=== PATIENT | male | born 1940 | race Caucasian/White ===

== ENCOUNTER → 2024-08-30 | Outpatient (CLI) | payer MEDICARE, OTHER, SELFPAY ==
[2024-08-30 16:47] LABS: Albumin, Serum 4.5 gm/dL (3.4-4.8); Anion Gap 9 (7-16); BUN/Creatinine Ratio 26 Ratio (12-20); Blood Urea Nitrogen 41 mg/dL (9-23); Carbon Dioxide 26.9 mMol/L (20.0-31.0); Chloride 96 mMol/L (98-107); Creatinine (Component) 1.6 mg/dL (0.6-1.3); Glucose 210 mg/dL (74-106); Osmolality,Calculated 280 (275-295); Phosphorous 3.6 mg/dL (2.4-5.1); Potassium 4.4 mMol/L (3.4-5.1); Sodium 132 mMol/L (136-145); eGFR 42 See Note
== END | disposition home or self-care (01) ==
PROVIDERS: PCP Family Medicine; Referring Provider Internal Medicine Cardiovascular Disease; Visit Provider Internal Medicine Cardiovascular Disease
DX: Z13.1 Encounter for screening for diabetes mellitus (principal)
CPT/HCPCS: 36415; 80069

== ENCOUNTER → 2024-09-06 | Outpatient (CLI) | payer MEDICARE, OTHER, SELFPAY ==
[2024-09-06 17:05] LABS: Albumin, Serum 4.5 gm/dL (3.4-4.8); Anion Gap 10 (7-16); BUN/Creatinine Ratio 27 Ratio (12-20); Blood Urea Nitrogen 40 mg/dL (9-23); Calcium 9.2 mg/dL (8.3-10.6); Calcium (Corrected) 9.2 mg/dL (8.5-10.1); Carbon Dioxide 25.1 mMol/L (20.0-31.0); Chloride 100 mMol/L (98-107); Creatinine (Component) 1.5 mg/dL (0.6-1.3); Glucose 229 mg/dL (74-106); Osmolality,Calculated 286 (275-295); Potassium 4.4 mMol/L (3.4-5.1); Sodium 135 mMol/L (136-145); eGFR 45 See Note
== END | disposition home or self-care (01) ==
PROVIDERS: PCP Family Medicine; Referring Provider Family Medicine; Visit Provider Family Medicine
DX: Z13.1 Encounter for screening for diabetes mellitus (principal)
CPT/HCPCS: 36415; 80069

== ENCOUNTER 2024-12-21 12:13 | Emergency (ER) | payer MEDICARE, OTHER, SELFPAY ==
--- NOTE | 2024-12-21 12:39 | PD.EDADULT ---
ED General RME/HPI General Chief complaint: Ankle/Foot Injury Stated complaint: R FOOT PAIN Time Seen by Provider: 12/21/24 12:31 Arrival date/time: 12/21/24 12:13 RME / HPI RME / HPI narrative: 84-year-old male patient came in for evaluation regarding left first metatarsal phalangeal pain. Onset of symptoms since earlier today as patient is complaining of pain to the left metatarsophalangeal area, with swelling and mild redness. Patient denies any trauma or fall denies any fever denies any other complaints no medication was taken prior to arrival. Related Data Home Medications ?Medication ?Instructions ?Recorded ?Confirmed finasteride 5 mg tablet (Proscar) 5 mg PO QDAY #0 tabs 05/13/15 06/24/22 simvastatin 40 mg tablet (Zocor) 40 mg PO HS #0 tabs 05/13/15 06/24/22 tiotropium bromide 2.5 2 puff inhalation QDAY #0 puffs 07/26/16 06/24/22 mcg/actuation mist for inhalation (Spiriva Respimat) budesonide 1 mg/2 mL suspension 2 ml inhalation BID PRN sob 09/30/18 06/24/22 for nebulization (Pulmicort) apixaban 5 mg tablet (Eliquis) 5 mg PO BID 12/02/21 06/24/22 diltiazem HCl 180 mg 180 mg PO QDAY 12/02/21 06/24/22 capsule,extended release 24 hr metformin 1,000 mg tablet 1,000 mg PO BID 12/02/21 06/24/22 spironolactone 50 mg tablet 100 mg PO QDAY 12/02/21 06/24/22 albuterol sulfate 90 mcg/actuation 1 - 2 puff inhalation Q4H PRN sob 06/24/22 06/24/22 aerosol inhaler (ProAir HFA) bumetanide 2 mg tablet 2 mg PO BID 06/24/22 06/24/22 linaclotide 145 mcg capsule 145 mcg PO QAM 06/24/22 06/24/22 (Linzess) potassium chloride 20 mEq 20 meq PO QDAY 06/24/22 06/24/22 tablet,extended release Previous Rx's ?Medication ?Instructions ?Recorded aspirin 81 mg capsule 81 mg PO QDAY #30 caps 06/26/22 allopurinol 100 mg tablet 100 mg PO QDAY #14 tabs 12/21/24 indomethacin 75 mg 75 mg PO BID #20 caps 12/21/24 capsule,extended release Allergies Allergy/AdvReac Type Severity Reaction Status Date / Time No Known Allergies Allergy Verified 12/21/24 13:12 Review of Systems Review of Systems Narrative Review of Systems: Review of system reviewed and within normal limits except mentioned in HPI ED Exam Narrative Physical exam: VITAL SIGNS: Reviewed. GENERAL APPEARANCE: Alert and interactive, follows commands, no acute distress, HEAD AND FACE: Non-traumatic. ENT: PERRL, pink conjunctivitis, eyelid no trauma, Mucous membrane moist. NECK: Supple, nontender, no nuchal rigidity. CHEST: No tenderness, no crepitus, no paradoxical movement, no retractions. LUNGS: Clear, well ventilated, symmetric, no rales, no wheezing, no ronchi, no stridor, good breath sounds bilaterally. HEART: Regular rate, regular rhythm, no murmur, no gallops. ABDOMEN: Soft, positive bowel sounds, nondistended, no guarding, nontender, no rebound, no masses, RECTAL: Deferred. GENITAL: Deferred. NEUROLOGICAL: Gross motor function intact sensory function intact, Appropriate for age. MUSCULOSKELETAL: low back nontender, full range of motion. EXTREMITIES: Left metatarsophalangeal tenderness, with limitation range of motion. Mild swelling, mild redness SKIN: Color pink, dry, no rash, no lacerations, no abrasions, no contusions. LYMPHATICS: Deferred. Course Quality Measures none Orders Category Date Time Status XR foot comp RT min 3V Stat Exams 12/21/24 13:18 Completed CBC [CBC] Stat Lab 12/21/24 12:45 Completed CMP [Comprehensive Metabolic Panel] Stat Lab 12/21/24 12:45 Completed Uric Acid Stat Lab 12/21/24 12:45 Completed Colchicine Med 12/21/24 13:22 Discontinued 1.2 mg PO X1 ONE Dexamethasone Inj [Decadron Inj] Med 12/21/24 13:22 Discontinued 10 mg PO X1 ONE Ketorolac Inj [Toradol Inj] Med 12/21/24 12:37 Discontinued 15 mg IM X1 ONE MDM Patient data External records reviewed:: None Clinical information provided by:: patient Social determinants that could affect healthcare access:: none Patient has the following chronic illnesses:: C3-4 just shows mild left hydro 11 mm proximal left ureteral calculus copy of this with the family history of chronic A-fib, COPD and congestive heart failure CVA How is presenting disease/condition affected by chronic disease/condition?: uneffected by Evaluation data The following diagnostics were reviewed and interpreted by me:: lab results and radiology exam(s) Lab and/or radiology exams considered but not ordered:: None Interpretation Summary: See results MDM Medications Medications considered but not ordered:: None Medication administrations:: Medication Administration History Discontinued Medications Colchicine (Colchicine 0.6 Mg Tablet) 1.2 mg PO X1 ONE Stop: 12/21/24 13:23 Dexamethasone Sodium Phosphate (Dexamethasone Sod Phos Inj 10 Mg/Ml Vial) 10 mg PO X1 ONE Stop: 12/21/24 13:23 Ketorolac Tromethamine (Ketorolac Inj 60 Mg/2 Ml Vial) 15 mg IM X1 ONE Stop: 12/21/24 12:38 Colchicine, Decadron and Toradol IM Consultations Consultation(s) initiated? (list below): No Consultation #1 (Physician, Specialty, Details): None Diagnosis Differential Diagnosis ED Complaint MDM: Podagra, foot pain, hyperuricemia Most likely diagnosis given after review of the tests above:: Podagra, hyperuricemia Admission Indicated Admission indicated?: not indicated Explain why admission is indicated or not indicated:: Stable Admission Request Was there a request for admission?: No Disposition Plan Disposition Plan: Discharge Discharge Attestation Discharge Attestation: The patient was given an opportunity to ask questions and understood the discharge instructions. Discharge instructions specifically effects, indications for sooner follow up or return to the emergency department, and the expected course of current diagnosis. Patient condition: Stable Medical Decision Making MDM Narrative MDM Narrative: 84-year-old male patient came in for evaluation regarding left first metatarsal phalangeal pain. Onset of symptoms since earlier today as patient is complaining of pain to the left metatarsophalangeal area, with swelling and mild redness. Patient denies any trauma or fall denies any fever denies any other complaints no medication was taken prior to arrival. Patient's workup today is significant for a uric acid of so 10.1 which is elevated potassium 3.0. Otherwise unremarkable. Patient's x-ray of the foot came back with osteopenia otherwise unremarkable. Patient received Differential Diagnosis Differential Diagnosis: Podagra, foot pain, hyperuricemia Lab Data 12/21/24 12:45 12/21/24 12:45 Labs: Lab Results 12/21/24 Range/Units 12:45 WBC 13.4 H (3.8-10.6) Thou/mm3 RBC 4.03 L (4.50-5.90) Miln/mm3 Hgb 12.3 L (13.5-16.0) g/dL Hct 36.7 L (41.0-53.0) % MCV 91 (80-100) fL MCH 30.5 (25.0-35.0) pg MCHC 33.5 (31.0-37.0) g/dl RDW Std Deviation 43.7 (35.1-43.9) fL Plt Count 295 (140-440) Thou/mm3 Neut % (Auto) 76 (37-80) % Lymph % (Auto) 12 (10-50) % Gilmer % (Auto) 10 (0-12) % Eos % (Auto) 1 (0-10) % Baso % (Auto) 1 (0-2.5) % Neut # (Auto) 10.2 H (1.8-7.7) Thou/mm3 Lymph # (Auto) 1.6 (1.0-4.8) Thou/mm3 Gilmer # (Auto) 1.4 H (0.0-0.8) Thou/mm3 Eos # (Auto) 0.1 (0.0-0.5) Thou/mm3 Baso # (Auto) 0.1 (0.0-0.2) Thou/mm3 Immature Gran # (Auto) 0.06 H (0.00-0.00) Thou/mm3 Absolute Nucleated RBC 0.00 (0.00-0.00) Thou/mm3 Immature Gran % 0 (0-0) % Nucleated RBC % 0 (0) /100 WBC Sodium 138 (136-145) mMol/L Potassium 3.3 L (3.4-5.1) mMol/L Chloride 102 (98-107) mMol/L Carbon Dioxide 26.9 (20.0-31.0) mMol/L Anion Gap 9 (7-16) BUN 21 (9-23) mg/dL Creatinine 1.3 (0.6-1.3) mg/dL Estim Creat Clear Calc 37.7 L (>60) mL/min eGFR 54 L (60 - ) See Note BUN/Creatinine Ratio 16 (12-20) Ratio Glucose 171 H (74-106) mg/dL Calculated Osmolality 282 (275-295) Uric Acid 10.1 H (3.7-9.2) mg/dL Calcium 9.0 (8.3-10.6) mg/dL Corrected Calcium 9.0 (8.5-10.1) mg/dL Total Bilirubin 0.6 (0.3-1.2) mg/dL AST 20 (0-34) U/L ALT 17 (10-49) U/L Alkaline Phosphatase 57 (46-116) U/L Total Protein 6.5 (5.7-8.2) gm/dL Albumin 4.1 (3.4-4.8) gm/dL Globulin 2.4 (2.3-3.5) gm/dL Albumin/Globulin Ratio 1.7 (1.2-2.2) Discharge Plan Plan Patient Disposition: HOME (Self Care) Disposition Comment: Stable Prescriptions/Referrals Prescriptions/Med Rec: New allopurinol 100 mg tablet 100 mg PO QDAY Qty: 14 0RF indomethacin 75 mg capsule, extended release 75 mg PO BID Qty: 20 0RF No Action simvastatin [Zocor] 40 MG tablet 40 mg PO HS Qty: 0 finasteride [Proscar] 5 MG tablet 5 mg PO QDAY Qty: 0 Spiriva Respimat 2.5 mcg/actuation Mist 2 puff INHALATION QDAY Qty: 0 budesonide [Pulmicort] 1 mg/2 mL Suspension For Nebulization 2 ml INHALATION BID PRN (Reason: sob) diltiazem HCl 180 mg capsule,extended release 24hr 180 mg PO QDAY metformin 1,000 mg tablet 1,000 mg PO BID spironolactone 50 mg tablet 100 mg PO QDAY Patient Comments: take 2 tablets by mouth once a day Eliquis 5 mg tablet 5 mg PO BID Linzess 145 mcg Capsule 145 mcg PO QAM potassium chloride 20 mEq Tablet Extended Release 20 meq PO QDAY bumetanide 2 MG tablet 2 mg PO BID albuterol sulfate [ProAir HFA] 90 mcg/actuation HFA aerosol inhaler 1 - 2 puff INHALATION Q4H PRN (Reason: sob) aspirin 81 mg capsule 81 mg PO QDAY Qty: 30 0RF Referrals: No Primary/Family,Physician [Primary Care Provider] - In 1 week Problem List Clinical Impression: Podagra, Hyperuricemia Patient/Caregiver Discharge Instructions Discharge Activity: activity as tolerated Education Materials: What Is Gout? Additional Instructions: Thank you for the opportunity for serving you today. You are stable for discharged . You are advised to: Follow-up with your PCP in 1 to 2 days Return to ED for worsening of symptoms Increase oral fluids Take medication as prescribed Print Language: French Stand Alone Forms: Elz[employer]eta Award Info., Patient Portal Info Letter PA/SOFTWARE ENGINEERING SUPERVISOR Supervising Physician PA/SOFTWARE ENGINEERING SUPERVISOR Supervising Physician: MD tyrell
[2024-12-21 12:55] LABS: Basophils # (Auto) 0.1 Thou/mm3 (0.0-0.2); Basophils % (Auto) 1 % (0-2.5); Eosinophils # (Auto) 0.1 Thou/mm3 (0.0-0.5); Eosinophils % (Auto) 1 % (0-10); Hematocrit 36.7 % (41.0-53.0); Hemoglobin 12.3 g/dL (13.5-16.0); Immature Granulocytes % (Auto) 0 % (0-0); Immature Granulocytes Auto 0.06 Thou/mm3 (0.00-0.00); Lymphocytes # (Auto) 1.6 Thou/mm3 (1.0-4.8); Lymphocytes % (Auto) 12 % (10-50); Mean Corpuscular HGB Conc 33.5 g/dl (31.0-37.0); Mean Corpuscular Hemoglobin 30.5 pg (25.0-35.0); Mean Corpuscular Volume 91 fL (80-100); Monocytes # (Auto) 1.4 Thou/mm3 (0.0-0.8); Monocytes % (Auto) 10 % (0-12); Neutrophils # (Auto) 10.2 Thou/mm3 (1.8-7.7); Neutrophils % (Auto) 76 % (37-80); Nucleated Red Blood Cell % 0 /100 WBC (0); Platelet Count 295 Thou/mm3 (140-440); RDW Standard Deviation 43.7 fL (35.1-43.9); Red Blood Count 4.03 Miln/mm3 (4.50-5.90); White Blood Count 13.4 Thou/mm3 (3.8-10.6)
[2024-12-21 13:09] VITALS: PULSE 87; RESP 18; O2SAT 98; BMI 32.9
[2024-12-21 13:15] LABS: Alanine Aminotransferase 17 U/L (10-49); Albumin, Serum 4.1 gm/dL (3.4-4.8); Albumin/Globulin Ratio 1.7 (1.2-2.2); Alkaline Phosphatase 57 U/L (46-116); Anion Gap 9 (7-16); Aspartate Amino Transferase 20 U/L (0-34); BUN/Creatinine Ratio 16 Ratio (12-20); Bilirubin,Total 0.6 mg/dL (0.3-1.2); Blood Urea Nitrogen 21 mg/dL (9-23); Carbon Dioxide 26.9 mMol/L (20.0-31.0); Chloride 102 mMol/L (98-107); Creatinine (Component) 1.3 mg/dL (0.6-1.3); Estimated Creatinine Clearance 37.7 mL/min (>60); Globulin 2.4 gm/dL (2.3-3.5); Glucose 171 mg/dL (74-106); Osmolality,Calculated 282 (275-295); Potassium 3.3 mMol/L (3.4-5.1); Sodium 138 mMol/L (136-145); Total Protein 6.5 gm/dL (5.7-8.2); Uric Acid 10.1 mg/dL (3.7-9.2); eGFR 54 See Note
--- NOTE | 2024-12-21 13:18 | XR_ITS ---
Examination: Foot, right, 3 views Technique: AP, oblique, lateral views foot, 3 views Date and time of exam: 12/21/2024, 1:19 PM INDICATION: Foot pain. Study limited by patient positioning/cooperation. Diffuse osteopenia. Degenerative changes in the interphalangeal joints. No acute fracture seen. No radiopaque foreign bodies. IMPRESSION: Limited study due to patient positioning/cooperate and and osteopenia. No acute fracture seen. Diffuse diffuse osteopenia with degenerative changes. If clinically indicated CT exam may provide additional diagnostic information.
[2024-12-21] MEDS: KETOROLAC INJ 60 MG/2 ML VIAL 15 MG IM (14:36)
[2024-12-21] MEDS: DEXAMETHASONE SOD PHOS INJ 10 MG/ML VIAL PO (14:37)
[2024-12-21 14:48] VITALS: BP 146/70; PULSE 79; RESP 18; TEMP 36.9; O2SAT 95
== END 2024-12-21 17:02 | disposition home or self-care (01) ==
PROVIDERS: Nurse Practitioner Family; Emergency Provider Emergency Medicine
DX: M10.9 Gout, unspecified (principal)
CPT/HCPCS: 36415; 73630; 80053; 84550; 85025; 96372; 99283; J1100; J1885

== ENCOUNTER 2025-01-20 10:23 | Inpatient (IN) | payer MEDICARE, OTHER, SELFPAY ==
[2025-01-20] VITALS (31 sets, daily range): BP systolic 96–136; BP diastolic 46–86; PULSE 54–100; RESP 14–90; TEMP 36.6–37; O2SAT 94–99; BMI 30.2; BMI 38.2
--- NOTE | 2025-01-20 10:32 | EKG_ITS ---
[facility] Test Date: 2025-01-20 Pat Name: DOROTEO CAI Department: Room: - Gender: Male Film Booker: : 1940 Requested By: Dominic Brown Order Number: [id number] Reading MD: Dominic Brown Measurements Intervals Horner Rate: 59 P: UT: QRS: -21 QRSD: 154 T: -5 QT: 457 QTc: 453 Interpretive Statements ATRIAL FIBRILLATION WITH SLOW VENTRICULAR RESPONSE INTRAVENTRICULAR CONDUCTION DELAY [130+ ms QRS DURATION] Compared to ECG 06/24/2022 13:30:50 Intraventricular conduction delay now present T-wave abnormality no longer present /store/S0/[id number]/ecg/[id number].pdf
--- NOTE | 2025-01-20 10:52 | XR_ITS ---
Examination: CT cervical spine without contrast 2-D sagittal reconstructions 2-D coronal reconstructions 3-D reconstructions. Exam date and time:January 20, 2025 1117 hrs. Indications: Patient fell today with injury to the neck, neck pain CTDI:vol (mGy) 9.9 DLP: (mGycm) 220 Technique: Multiple 2 mm axial sections of the cervical spine have been obtained. The coronal and sagittal reconstructions have been obtained. 3-D reconstructions have been obtained. Low dose protocols were performed. One or more of the following dose reduction techniques were used; automated exposure control, adjustment of the mA and/or KV according to patient size, use of iterative reconstruction technique. Findings: Axial sections demonstrate intact base of the skull. C1 exhibit satisfactory relationship to the odontoid. No acute cervical vertebral body fracture seen. Alignment posterior spinous processes satisfactory. Osteolytic changes involving the odontoid Impression: No acute cervical fracture. Osteolytic lesion involving the odontoid, recommend elective MRI cervical spine follow-up pre and postcontrast
--- NOTE | 2025-01-20 10:52 | XR_ITS ---
Examination: AP chest single view Technique: Sitting AP portable chest single view Date and time: January 20, 2025, 11:15 AM Comparison February 19, 2023 Indications: Shortness of breath today Findings: Mild heart failure Moderate enlargement cardiac contour. CABG. Prominent vascular congestion. Early septal edema at the lung bases Impression: Early heart failure
--- NOTE | 2025-01-20 10:52 | XR_ITS ---
Examination: CT brain head without contrast. 2-D sagittal coronal reconstructions Date and time of exam:January 20, 2025 1117 hrs. Indications: Patient fell today with injury to the head, head pain CTDI: vol (mGy):52.7 DLP: (mGycm):1049 Technique: Multiple CT axial sections of the brain have been obtained, 5 mm slice thickness. Contrast has not been administered. 2-D sagittal, coronal reconstructions have been obtained Low dose protocols were performed. One or more of the following dose reduction techniques were used; automated exposure control, adjustment of the mA and/or KV according to patient size, use of iterative reconstruction technique. Findings: No significant ventricular enlargement. 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 No mass effect or midline shift Basal cisterns are not remarkable. Fourth ventricle is midline. Cranial vault intact. Impression: Negative for acute hemorrhage, mass effect or midline shift
--- NOTE | 2025-01-20 11:08 | PD.EDADULT ---
ED General RME/HPI General Chief complaint: Syncope / Near Syncope Stated complaint: SYNCOPE Time Seen by Provider: 01/20/25 11:42 Arrival date/time: 01/20/25 10:23 RME / HPI RME / HPI narrative: This patient is a 84-year-old male with past medical history of chronic A-fib on Eliquis, CAD status post CABG, CHF EF unknown, [id number] type 2 diabetes, BPH, melanoma, hearing loss, dementia, history of stroke in 2021 presented to the ED on 01/20/2025 with chief complaint of presyncope x 1 hour ago. Patient's was contacted as patient does not recall anything and he stated that he feels congested due to cough and feels short of breath. Patient's reported that this morning when patient took his medications and breathing treatment with Pulmicort, he fell backwards on his bed while getting up from his walker and denied hitting his head on the floor and stared his for 15 minutes. Patient's felt that he had weakness in lower extremities and was concern for stroke. Patient's called his daughter and EMS. Patient was able to interact at least after 15 minutes. No urine incontinence or bowel incontinence was noticed during that time or shaking of extremities. Patient has been having trouble breathing overnight per patient's and was using oxygen around 3 L. She stated that she also noticed lower extremity swelling. She reported the patient has a history of heart failure since 2019 and follows terrazzo helper, Dr. Dickson as outpatient and is on Bumex. She also reports the patient had stroke in 2021 after which she has been taking aspirin and atorvastatin. She stated that patient did not had any fever chills, chest pain, nausea, vomiting abdominal pain or dysuria. During assessment on the bedside, patient did not had any gross weakness, drooping of face or slurred speech. He denied having any confusion or lightheadedness. Patient had productive cough which she reported that is worsening today. He was also found to have 2+ pitting edema on both lower extremities up to knees. PMH: As above PSH: CABG SH: Quit smoking 7 to 8 years ago. Used to smoke 1 pack of cigarette every day. Drinks alcohol occasionally. No history of illicit drug use. Lives with his Allergies: NKDA Home medications: Aspirin 81 mg once daily, metformin 500 mg twice daily, Bumex 1 mg 3 times daily, Eliquis 5 mg twice daily, finasteride 5 mg once daily, gabapentin 100 mg 2 tablets in the morning, 2 tablet in the afternoon and 3 tablets at night, Spiriva 2-5 puffs every day, simvastatin 40 mg at bedtime, Pulmicort, diltiazem extended release 120 mg once daily, donepezil 10 mg once daily, Linzess 70 mg daily Vitals showed blood pressure 136/51, heart rate 70s, respiratory rate 20 and afebrile. He was saturating well on 1 L NC. EKG showed atrial fibrillation with slow ventricular response with QTc 453. Left axis deviation. RBBB. Differential diagnoses include Syncope, arrhythmias, GI bleed, possible stroke/TIA, CHF exacerbation, pneumonia,[place] We ordered stat CT brain without contrast, CT spine without contrast, basic labs, BNP, lactic acid, procalcitonin, chest x-ray, bedside COVID and flu test, orthostatic vitals, urinalysis, U tox and breathing treatments was ordered x 1. 11:37 ABGs showed pH 7.44, pCO2 36, PO299 and bicarb 24. FiO2 21%.COVID-19 and flu were negative. Urinalysis was unremarkable. U tox is negative.Chest x-ray showed prominent vascular congestion with early heart failure pattern. 13: 04 patient denied any active symptoms. Patient was inquired regarding noticing blood or dark-colored stools however he denied noticing either of them. Blood pressure was soft on reevaluation. CBC was significant for leukocytosis white count 13.0 likely reactive, hemoglobin 7.3 dropped from 12.3 from December 2024, platelet count 333. CHEM panel showed mild hyponatremia sodium 134. ALEXEI kidney functions showed BUN 30 and creatinine 1.6 with baseline creatinine 1.3 from 12/21/2024 GFR 42, blood glucose 176.FOBT came positive. Lactic acidosis likely Type A due to blood loss lactic acid of 2.5 likely related to blood loss, corrected calcium 8.4. Liver enzymes unremarkable. BNP slightly elevated 202. Troponin I was negative. Procalcitonin 0.22. --> Patient most likely have GI bleed. We ordered type and screen, transfusing 2 units PRBC given significant cardiac history, GI has been consulted for possible endoscopy, Protonix 40 mg IV given x 1. Patient should have been on Eliquis 2.5 mg twice daily for age and renal functions however he was taking full dose of Eliquis 5 twice daily. Patient's was contacted and informed regarding patient's current clinical condition. Troponin I came negative. 13:16 Consulted GI specialist, Dr Gayle he rec to admit the patient, transfuse 2 units of PRBC, continue Eliquis 2.5 mg BID given cardiac hx, Keep him on clear liquid diet, NPO after midnight and he will be doing endoscopy tomorrow morning. 14:[address] to r/o bleed. 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 No acute cervical fracture. Head CT showed no acute changes.only old infarct Rt occipital lobe 15:05 Pneumonia, arrhythmia, [place] and acute CHF was ruled out. Will be admitted for GI bleed. Discussed case with hospitalist team regarding admission. Discussed patient's ED course, exam findings, labs and radiology results. Hospitalist team agreed to accept the patient for admission. MD complaint: Presyncope with shortness of breath and cough Onset (ago): day(s) (1) Associated symptoms: shortness of breath, syncope and weakness Treatments prior to arrival: other (Linzess, diltiazem, donepezil, Pulmicort, Bumex) Related Data Home Medications ?Medication ?Instructions ?Recorded ?Confirmed finasteride 5 mg tablet (Proscar) 5 mg PO QDAY #0 tabs 05/13/15 06/24/22 simvastatin 40 mg tablet (Zocor) 40 mg PO HS #0 tabs 05/13/15 06/24/22 tiotropium bromide 2.5 2 puff inhalation QDAY #0 puffs 07/26/16 06/24/22 mcg/actuation mist for inhalation (Spiriva Respimat) budesonide 1 mg/2 mL suspension 2 ml inhalation BID PRN sob 09/30/18 06/24/22 for nebulization (Pulmicort) apixaban 5 mg tablet (Eliquis) 5 mg PO BID 12/02/21 06/24/22 diltiazem HCl 180 mg 180 mg PO QDAY 12/02/21 06/24/22 capsule,extended release 24 hr metformin 1,000 mg tablet 1,000 mg PO BID 12/02/21 06/24/22 spironolactone 50 mg tablet 100 mg PO QDAY 12/02/21 06/24/22 albuterol sulfate 90 mcg/actuation 1 - 2 puff inhalation Q4H PRN sob 06/24/22 06/24/22 aerosol inhaler (ProAir HFA) bumetanide 2 mg tablet 2 mg PO BID 06/24/22 06/24/22 linaclotide 145 mcg capsule 145 mcg PO QAM 06/24/22 06/24/22 (Linzess) potassium chloride 20 mEq 20 meq PO QDAY 06/24/22 06/24/22 tablet,extended release Previous Rx's ?Medication ?Instructions ?Recorded aspirin 81 mg capsule 81 mg PO QDAY #30 caps 06/26/22 allopurinol 100 mg tablet 100 mg PO QDAY #14 tabs 12/21/24 indomethacin 75 mg 75 mg PO BID #20 caps 12/21/24 capsule,extended release Allergies Allergy/AdvReac Type Severity Reaction Status Date / Time No Known Allergies Allergy Verified 12/21/24 13:12 Review of Systems Review of Systems Systems Reviewed: All systems reviewed, normal except as documented Past Medical History Past Medical History CARDIAC: Positive Cardiac Disorders, Atrial Fibrillation, Atherosclerotic Heart Disease, Congestive Heart Failure, Edema and Hypertension RESPIRATORY: Positive Asthma and Pneumonia; Negative Chronic Obstructive Pulmonary Disease (COPD) GENITOURINARY: Negative Renal Disease MUSCULOSKELETAL: Positive Musculoskeletal Disorders and Arthritis ENT: Positive Deafness ENDOCRINE: Positive Endocrine Disorders and Diabetes Mellitus Type 2; Negative Diabetes Mellitus Type 1 Surgical History SURGICAL: Positive Cardiac Surgery, Open Heart Surgery, Coronary Artery Bypass Graft, Abdominal Surgery and Joint Replacement Social History SMOKING STATUS: Never smoker Travel History EBOLA RISK: No Past Medical History Comments PMH COMMENT: Past medical history as above No tobacco no alcohol no drugs Family history unremarkable ED Exam Narrative Physical exam: GENERAL APPEARANCE: Patient is AO x 3, demented elderly male in no acute distress. Mildly short of breath saturating well on 1 L NC. HEENT: NC, AT. MMM. EOMI, clear conjunctiva, oropharynx clear. JVD NECK: Supple without lymphadenopathy. No stiffness or restricted ROM. HEART: Irregular rate and irregular rhythm, normal S1/S2, no m/r/g, surgical scar dillon over sternum LUNGS: Bilateral decreased breath sounds on bases with coarse breath sounds on apex ABDOMEN: Soft, nontender, nondistended with good bowel sounds heard. BACK: No CVAT, no obvious deformity. EXTREMITIES: Bilateral pitting edema 2+ up to knees NEUROLOGICAL: Grossly nonfocal. Alert and oriented, moving all 4 extremities. CN not formally tested but appear grossly intact. Use walker for ambulation. Skin: Warm and dry without any rash. Psych: Memory lapses however cooperative and interactive Course Course Course Narrative: This patient is a 84-year-old male with past medical history of chronic A-fib on Eliquis, CAD status post CABG, CHF EF unknown, [id number] type 2 diabetes, BPH, melanoma, hearing loss, dementia, history of stroke in 2021 presented to the ED on 01/20/2025 with chief complaint of presyncope x 1 hour ago. Patient's was contacted as patient does not recall anything and he stated that he feels congested due to cough and feels short of breath. Patient's reported that this morning when patient took his medications and breathing treatment with Pulmicort, he fell backwards on his bed while getting up from his walker and denied hitting his head on the floor and stared his for 15 minutes. Patient's felt that he had weakness in lower extremities and was concern for stroke. Vitals showed blood pressure 136/51, heart rate 70s, respiratory rate 20 and afebrile. He was saturating well on 1 L NC. EKG showed atrial fibrillation with slow ventricular response with QTc 453. Left axis deviation. RBBB. Differential diagnoses include syncope, arrhythmias, GI bleed, possible stroke/TIA, CHF exacerbation, pneumonia,[place] We ordered stat CT brain without contrast, CT spine without contrast, basic labs, BNP, lactic acid, procalcitonin, chest x-ray, bedside COVID and flu test, orthostatic vitals, urinalysis, U tox and breathing treatments was ordered x 1. 11:37 ABGs showed pH 7.44, pCO2 36, PO299 and bicarb 24. FiO2 21%.COVID-19 and flu were negative. Urinalysis was unremarkable. U tox is Negative.Chest x-ray showed prominent vascular congestion with early heart failure pattern. 13: 04 patient denied any active symptoms. Patient was inquired regarding noticing blood or dark-colored stools however he denied noticing either of them. Blood pressure was soft on reevaluation. CBC was significant for leukocytosis white count 13.0 likely reactive, hemoglobin 7.3 dropped from 12.3 from December 2024, platelet count 333. CHEM panel showed mild hyponatremia sodium 134. ALEXEI kidney functions showed BUN 30 and creatinine 1.6 with baseline creatinine 1.3 from 12/21/2024 GFR 42, blood glucose 176.FOBT came positive. Lactic acidosis likely Type A due to blood loss lactic acid of 2.5 likely related to blood loss, corrected calcium 8.4. Liver enzymes unremarkable. BNP slightly elevated 202. Troponin I was negative. Procalcitonin 0.22. --> Patient most likely have GI bleed. We ordered type and screen, transfusing 2 units PRBC given significant cardiac history, GI has been consulted for possible endoscopy, Protonix 40 mg IV given x 1. Patient should have been on Eliquis 2.5 mg twice daily for age and renal functions however he was taking full dose of Eliquis 5 twice daily. Patient's was contacted and informed regarding patient's current clinical condition. Troponin I came negative. 13:16 GI specialist, Dr Gayle was consulted he rec to admit the patient, transfuse 2 units of PRBC, continue Eliquis 2.5 mg BID given cardiac hx, Keep him on clear liquid diet, NPO after midnight and he will be doing endoscopy tomorrow morning. 14:[address] to r/o bleed. 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 No acute cervical fracture. Head CT showed no acute changes.only old infarct Rt occipital lobe 15:05 Pneumonia, arrhythmia, [place] and acute CHF was ruled out. Will be admitted for GI bleed. Discussed case with hospitalist team regarding admission. Discussed patient's ED course, exam findings, labs and radiology results. Hospitalist team agreed to accept the patient for admission. Quality Measures none Orders Category Date Time Status Bedside COVID-19 Antigen Test NOW Care 01/20/25 10:52 Active Bedside Influenza A&B Antigen Test NOW Care 01/20/25 10:54 Completed EKG (ED ONLY) *Do not use* NOW Care 01/20/25 10:32 Completed Fluid restriction QDAY Care 01/20/25 11:07 Active NPO after Midnight ONCE Care 01/20/25 13:00 Active Nurse Swallow Screen X1 Care 01/20/25 12:58 Active Occult Blood,Stool (Nursing) NOW Care 01/20/25 12:40 Active Orthostatic Vitals NOW Care 01/20/25 10:54 Active Post Transfusion H&H PRN Care 01/20/25 13:00 Active Strict Intake and Output Routine Care 01/20/25 11:07 Ordered Transfuse,blood/blood products NOW Care 01/20/25 13:00 Active Consult to Gastroenterology Stat Cons 01/20/25 12:59 Ordered Diet Clear Liquid Diet 01/20/25 Lunch Active Diet NPO after Midnight Diet 01/21/25 00:[address] cervical spine wo con Stat Exams 01/20/25 10:[address] head/brain wo con Stat Exams 01/20/25 10:52 Completed CXRP [XR chest 1V portable] Stat Exams 01/20/25 10:52 Completed EKG (ED Only) Stat Exams 01/20/25 10:32 Draft ABG [Arterial Blood Gas] Stat Lab 01/20/25 11:30 Completed BNP [B-Type Natriuretic Peptide] Stat Lab 01/20/25 11:26 Completed CBC Stat Lab 01/20/25 11:26 Completed CMP [Comprehensive Metabolic Panel] Stat Lab 01/20/25 11:26 Completed Creatine Kinase Stat Lab 01/20/25 11:26 Completed Drug Screen,Urine Stat Lab 01/20/25 11:15 Completed INR [Prothrombin Time with INR] Stat Lab 01/20/25 11:26 Completed Lactate (Lactic Acid) Stat Lab 01/20/25 11:26 Completed Lactic Acid [Lactate (Lactic Acid)] Routine Lab 01/20/25 13:15 Results Lactic Acid, 3 HR Stat Lab 01/20/25 14:40 Ordered Mag [Magnesium] Stat Lab 01/20/25 11:26 Completed Occult Blood, Stool (LAB) Stat Lab 01/20/25 12:55 Completed PTT [Partial Thromboplastin Time] Stat Lab 01/20/25 11:26 Completed Phosphorous Stat Lab 01/20/25 11:26 Completed Procalcitonin Stat Lab 01/20/25 11:26 Completed Red Blood Cells Stat Lab 01/20/25 13:15 Results Troponin I Stat Lab 01/20/25 11:26 Completed Type and Screen Stat Lab 01/20/25 13:15 Results Urinalysis Stat Lab 01/20/25 11:15 Completed Albuterol/Ipratr Rt Joselyn [Duoneb Rt Joselyn] Med 01/20/25 10:52 Discontinued 3 ml INH X1 ONE Calcium Carbonate Med 01/20/25 13:11 Discontinued 600 mg PO X1 ONE Pantoprazole Inj [Protonix Inj] Med 01/20/25 12:57 Discontinued 40 mg IV X1 ONE Reevaluation(s) Reevaluation #1: 13: 04 patient denied any active symptoms. Patient was inquired regarding noticing blood or dark-colored stools however he denied noticing either of them. Blood pressure was soft on reevaluation. CBC was significant for leukocytosis white count 13.0 likely reactive, hemoglobin 7.3 dropped from 12.3 from December 2024, platelet count 333. CHEM panel showed mild hyponatremia sodium 134. ALEXEI kidney functions showed BUN 30 and creatinine 1.6 with baseline creatinine 1.3 from 12/21/2024 GFR 42, blood glucose 176.FOBT came positive. Lactic acidosis likely Type A due to blood loss lactic acid of 2.5 likely related to blood loss, corrected calcium 8.4. Liver enzymes unremarkable. BNP slightly elevated 202. Troponin I was negative. Procalcitonin 0.22. --> Patient most likely have GI bleed. We ordered type and screen, transfusing 2 units PRBC given significant cardiac history, GI has been consulted for possible endoscopy, Protonix 40 mg IV given x 1. Patient should have been on Eliquis 2.5 mg twice daily for age and renal functions however he was taking full dose of Eliquis 5 twice daily. Patient's was contacted and informed regarding patient's current clinical condition. Troponin I came negative. Time: 13:16 Reevaluation #2: 13:16 GI was consulted he rec to admit the patient, transfuse 2 units of PRBC, continue Eliquis 2.5 mg BID given cardiac hx, Keep him on clear liquid diet, NPO after midnight and he will be doing endoscopy tomorrow morning. Time: 14:00 Reevaluation #3: 14:[address] to r/o bleed. 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 No acute cervical fracture. Head CT showed no acute changes.only old infarct Rt occipital lobe 15:05 Pneumonia, arrhythmia, [place] and acute CHF was ruled out. Will be admitted for GI bleed. Vital Signs Vital signs: Vital Signs Temperature 98.1 F 01/20/25 10:29 Respiratory Rate 20 01/20/25 10:29 Blood Pressure 136/51 H 01/20/25 10:29 Pulse Oximetry (%) 97 01/20/25 10:29 Oxygen Delivery Method Nasal Cannula 01/20/25 10:29 Discharge Plan Plan Patient Disposition: Admit Acute Care w/in Hospital Prescriptions/Referrals Prescriptions/Med Rec: No Action simvastatin [Zocor] 40 MG tablet 40 mg PO HS Qty: 0 finasteride [Proscar] 5 MG tablet 5 mg PO QDAY Qty: 0 Spiriva Respimat 2.5 mcg/actuation Mist 2 puff INHALATION QDAY Qty: 0 budesonide [Pulmicort] 1 mg/2 mL Suspension For Nebulization 2 ml INHALATION BID PRN (Reason: sob) diltiazem HCl 180 mg capsule,extended release 24hr 180 mg PO QDAY metformin 1,000 mg tablet 1,000 mg PO BID spironolactone 50 mg tablet 100 mg PO QDAY Patient Comments: take 2 tablets by mouth once a day Eliquis 5 mg tablet 5 mg PO BID Linzess 145 mcg Capsule 145 mcg PO QAM potassium chloride 20 mEq Tablet Extended Release 20 meq PO QDAY bumetanide 2 MG tablet 2 mg PO BID albuterol sulfate [ProAir HFA] 90 mcg/actuation HFA aerosol inhaler 1 - 2 puff INHALATION Q4H PRN (Reason: sob) aspirin 81 mg capsule 81 mg PO QDAY Qty: 30 0RF allopurinol 100 mg tablet 100 mg PO QDAY Qty: 14 0RF indomethacin 75 mg capsule, extended release 75 mg PO BID Qty: 20 0RF Problem List Clinical Impression: GI bleed, Pre-syncope, Acute dyspnea Patient/Caregiver Discharge Instructions Print Language: Palauan Stand Alone Forms: [employer] Award Info., Patient Portal Info Letter MDM Narrative MDM hospital course (for use when minimal MDM required): This patient is a 84-year-old male with past medical history of chronic A-fib on Eliquis, CAD status post CABG, CHF EF unknown, [id number] type 2 diabetes, BPH, melanoma, hearing loss, dementia, history of stroke in 2021 presented to the ED on 01/20/2025 with chief complaint of presyncope x 1 hour ago. Patient's was contacted as patient does not recall anything and he stated that he feels congested due to cough and feels short of breath. Patient's reported that this morning when patient took his medications and breathing treatment with Pulmicort, he fell backwards on his bed while getting up from his walker and denied hitting his head on the floor and stared his for 15 minutes. Patient's felt that he had weakness in lower extremities and was concern for stroke. Vitals showed blood pressure 136/51, heart rate 70s, respiratory rate 20 and afebrile. He was saturating well on 1 L NC. EKG showed atrial fibrillation with slow ventricular response with QTc 453. Left axis deviation. RBBB. Differential diagnoses include syncope, arrhythmias, GI bleed, possible stroke/TIA, CHF exacerbation, pneumonia,[place] We ordered stat CT brain without contrast, CT spine without contrast, basic labs, BNP, lactic acid, procalcitonin, chest x-ray, bedside COVID and flu test,orthostatic vitals, urinalysis, U tox and breathing treatments was ordered x 1. 11:37 ABGs showed pH 7.44, pCO2 36, PO299 and bicarb 24. FiO2 21%.COVID-19 and flu were negative. Urinalysis was unremarkable. U tox is Negative.Chest x-ray showed prominent vascular congestion with early heart failure pattern. 13: 04 patient denied any active symptoms. Patient was inquired regarding noticing blood or dark-colored stools however he denied noticing either of them. Blood pressure was soft on reevaluation. CBC was significant for leukocytosis white count 13.0 likely reactive, hemoglobin 7.3 dropped from 12.3 from December 2024, platelet count 333. CHEM panel showed mild hyponatremia sodium 134. ALEXEI kidney functions showed BUN 30 and creatinine 1.6 with baseline creatinine 1.3 from 12/21/2024 GFR 42, blood glucose 176.FOBT came positive. Lactic acidosis likely Type A due to blood loss lactic acid of 2.5 likely related to blood loss, corrected calcium 8.4. Liver enzymes unremarkable. BNP slightly elevated . Troponin I was negative. Procalcitonin 0.22. --> Patient most likely have GI bleed. We ordered type and screen, transfusing 2 units PRBC given significant cardiac history, GI has been consulted for possible endoscopy, Protonix 40 mg IV given x 1. Patient should have been on Eliquis 2.5 mg twice daily for age and renal functions however he was taking full dose of Eliquis 5 twice daily. Patient's was contacted and informed regarding patient's current clinical condition. Troponin I came negative. 13:16 GI specialist, Dr Gayle was consulted he rec to admit the patient, transfuse 2 units of PRBC, continue Eliquis 2.5 mg BID given cardiac hx, Keep him on clear liquid diet, NPO after midnight and he will be doing endoscopy tomorrow morning. 14:[address] to r/o bleed. 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 No acute cervical fracture. Head CT showed no acute changes.only old infarct Rt occipital lobe 15:05 Pneumonia, arrhythmia, [place] and acute CHF was ruled out. Will be admitted for GI bleed. Discussed case with hospitalist team regarding admission. Discussed patient's ED course, exam findings, labs and radiology results. Hospitalist team agreed to accept the patient for admission. EKG Interpretation EKG #1: EKG Interpretation: EKG showed atrial fibrillation with slow ventricular response with QTc 453. Left axis deviation. RBBB. Labs Lab(s) Interpretation(s): Labs were significant for acute blood loss anemia hemoglobin 7.3, reactive leukocytosis 13.0, mild hyponatremia sodium 134, mild ALEXEI with BUN 30 and creatinine 1.6, lactic acidosis 2.5, hypocalcemia 8.4. BNP slightly elevated. Imaging Imaging Interpretation(s): Chest x-ray showed vascular congestion and heart failure pattern. No pneumonia. Medication Administration(s) Medication Administration History Discontinued Medications Albuterol/Ipratropium (Albuterol/Ipratropium (Duoneb) Rt Joselyn 3 Ml Nebu) 3 ml INH X1 ONE Stop: 01/20/25 10:53 Last Admin: 01/20/25 11:17 Dose: 3 ml Documented By: LENNOX Calcium Carbonate (Calcium Carbonate 600 Mg Tablet) 600 mg PO X1 ONE Stop: 01/20/25 13:12 Last Admin: 01/20/25 13:43 Dose: 600 mg Documented By: LAMONTE Pantoprazole Sodium (Pantoprazole Inj 40 Mg Vial) 40 mg IV X1 ONE Stop: 01/20/25 12:58 Last Admin: 01/20/25 13:13 Dose: 40 mg Documented By: LAMONTE Consultations/Discussions re: Management Consult #1: Date/time: 01/20/25 3:03 pm Physician, specialty, service, details: 13:16 GI specialist, Dr Gayle was consulted he rec to admit the patient, transfuse 2 units of PRBC, continue Eliquis 2.5 mg BID given cardiac hx, Keep him on clear liquid diet, NPO after midnight and he will be doing endoscopy tomorrow morning. Diagnosis Differential Diagnosis ED Complaint MDM: syncope, arrhythmias,GI bleed, possible stroke/TIA, CHF, pneumonia,[place] Diagnoses ruled out and/or further discussions: Patient most likely had syncope or near syncope episode due to hypotension related to GI bleed. Patient does not appear to have infection like pneumonia or UTI. [place] was ruled out based on no new EKG findings and troponin being negative.
[2025-01-20] MEDS: ALBUTEROL/IPRATROPIUM (Duoneb) RT SOL 3 ML NEBU INH ×3 (11:17→21:09)
[2025-01-20 11:25] LABS: Collection Type, Urine Clean Catch; Squamous Epithelial Cell,Urine 0 /hpf (0-5)
[2025-01-20 11:29] LABS: Bilirubin,Urine Negative (Negative); Blood,Urine Negative (Negative); Clarity,Urine Clear (Clear/Hazy); Color,Urine Colorless (Lt Yel-Yel); Glucose, Urine Negative (Negative); Hyaline Casts,Urine < 1 /hpf (0-1); Ketones,Urine Negative (Negative); Leukocyte Esterase,Urine Negative (Negative); Nitrite,Urine Negative (Negative); Protein,Urine Negative (Neg - Trace); RBC,Urine < 1 /hpf (0-3); Specific Gravity,Urine 1.011 (1.001-1.035); Urobilinogen,Urine Negative mg/dL (0.0-1.0); WBC,Urine < 1 /hpf (0-5)
[2025-01-20 11:33] LABS: Base Excess 0 (-3-3); HCO3 24 mEq/L (20-26); Inspired O2, VO2 Liters 2 L/min; Inspired Oxygen, FIO2 21 %; O2 Saturation 99 % (91-98); PCO2 36 mmHg (32.0-48.0); PO2 99 mmHg (83-108); pH, Arterial 7.44 (7.35-7.45)
[2025-01-20 11:35] LABS: Allen Test Not Performed; Puncture Site Right Radial
[2025-01-20 11:39] LABS: Amphetamine/Methamp Scrn,U Negative (Negative); Barbiturate Screen,Urine Negative (Negative); Benzodiazepines Screen,Urine Negative (Negative); Benzoylecgonine Screen, Ur Negative (Negative); Fentanyl Screen,Urine Negative (Negative); Opiate Screen,Urine Negative (Negative); THC Screen,Urine Negative (Negative)
[2025-01-20 11:42] LABS: Lactate (Lactic Acid) 2.5 mMol/L (0.4-2.0)
[2025-01-20 11:46] LABS: Basophils # (Auto) 0.1 Thou/mm3 (0.0-0.2); Basophils % (Auto) 1 % (0-2.5); Eosinophils # (Auto) 0.3 Thou/mm3 (0.0-0.5); Eosinophils % (Auto) 2 % (0-10); Hematocrit 22.2 % (41.0-53.0); Immature Granulocytes % (Auto) 1 % (0-0); Immature Granulocytes Auto 0.08 Thou/mm3 (0.00-0.00); Lymphocytes # (Auto) 2.3 Thou/mm3 (1.0-4.8); Lymphocytes % (Auto) 18 % (10-50); Mean Corpuscular HGB Conc 32.9 g/dl (31.0-37.0); Mean Corpuscular Hemoglobin 29.4 pg (25.0-35.0); Mean Corpuscular Volume 90 fL (80-100); Monocytes # (Auto) 1.4 Thou/mm3 (0.0-0.8); Monocytes % (Auto) 11 % (0-12); Neutrophils # (Auto) 8.8 Thou/mm3 (1.8-7.7); Neutrophils % (Auto) 68 % (37-80); Nucleated Red Blood Cell % 0 /100 WBC (0); Platelet Count 333 Thou/mm3 (140-440); RDW Standard Deviation 44.1 fL (35.1-43.9); Red Blood Count 2.48 Miln/mm3 (4.50-5.90)
[2025-01-20 11:49] LABS: Hemoglobin 7.3 g/dL (13.5-16.0)
[2025-01-20 12:05] LABS: B-Type Natriuretic Peptide 202 pg/mL (0-100)
[2025-01-20 12:14] LABS: Alanine Aminotransferase 11 U/L (10-49); Albumin, Serum 4.1 gm/dL (3.4-4.8); Albumin/Globulin Ratio 1.9 (1.2-2.2); Alkaline Phosphatase 66 U/L (46-116); Anion Gap 8 (7-16); Aspartate Amino Transferase 15 U/L (0-34); BUN/Creatinine Ratio 19 Ratio (12-20); Bilirubin,Total 0.5 mg/dL (0.3-1.2); Blood Urea Nitrogen 30 mg/dL (9-23); Calcium 8.4 mg/dL (8.3-10.6); Calcium (Corrected) 8.4 mg/dL (8.5-10.1); Carbon Dioxide 23.1 mMol/L (20.0-31.0); Chloride 103 mMol/L (98-107); Creatine Kinase 163 U/L (34-171); Creatinine (Component) 1.6 mg/dL (0.6-1.3); Estimated Creatinine Clearance 37.3 mL/min (>60); Globulin 2.2 gm/dL (2.3-3.5); Glucose 176 mg/dL (74-106); Osmolality,Calculated 278 (275-295); Phosphorous 3.4 mg/dL (2.4-5.1); Potassium 4.5 mMol/L (3.4-5.1); Procalcitonin 0.22 ng/ml (0.0-0.49); Sodium 134 mMol/L (136-145); Total Protein 6.3 gm/dL (5.7-8.2); Troponin I < 0.020 ng/mL (0.0-0.045); eGFR 42 See Note
[2025-01-20 13:07] LABS: INR 1.1 (0.9-1.3); Partial Thromboplastin Time 27.7 Seconds (22.0-36.0); Prothrombin Time 11.8 Seconds (9.0-12.2)
[2025-01-20] MEDS: PANTOPRAZOLE INJ 40 MG VIAL IV (13:13)
[2025-01-20 13:28] LABS: Lactate (Lactic Acid) 2.4 mMol/L (0.4-2.0)
[2025-01-20 13:28] LABS: OBS Developer Lot # 23003; OBS Performed By BOTED; OBS QC OK? Yes; Occult Blood, Stool Positive (Negative)
[2025-01-20] MEDS: CALCIUM CARBONATE 600 MG TABLET PO (13:43)
--- NOTE | 2025-01-20 14:29 | PC.CC ---
PRABHAKAR Osorio was informed by childbirth and infant care teacher Lanise that the pt will be admitted to the hospital. Paper Goods Machine Operator contacted the [facility] and spoke with aJnie and reported that the pt is admitted. Janie provided the Notification ID #[id number]. The [facility] has been informed.
[2025-01-20 14:40] LABS: Reflex Lactate? Y
--- NOTE | 2025-01-20 15:09 | PC.CC ---
Addendum entered by Misti Osorio 01/20/25 15:12: Pt is a [facility] and investigative writer contacted the [facility] notifiying [facility] that pt is admitted. Notification ID #[id number]. Original Note: Initial: PRABHAKAR Stephanie Devon completed an initial assessment with the pts Any Worthington [phone]. Pt was unable to provide detailed information as he was not feeling well and asleep. Any reported that she is the next of kin and person to notify. Any confirmed the pts demographics and medical insurance as well as the pts status as a [facility]. Any states the pt has an Advance directive in place and the hospital has a copy. Any reported that the pt uses [facility] and when need be, the pt will use [facility] or [facility] on [address]. Any reported the pts PCP is Dr. Emilio Barton and his speciality provider is Dr. Singh, [employer]. Ayn reports the pt uses a walker at home to ambulate, does not bathe on his own and uses a shower chair when showering. Any reports the pt does not cook, clean on his own. Any reported that the pt does not want a SNF if recommended and neither does she, but states if need be then she would make that decision at that time. Next of Kin: Any Worthington, , Pt has an Advance Directive in place DME: pt uses a walker and shower chair at home and cannot ambulate on his own. Needs: At this time, there are no identified needs.
--- NOTE | 2025-01-20 15:39 | PD.IMCONS ---
HPI Data of Consult Primary Care Provider: Physician No Primary/Family Consult Narrative Reason for consult: H&H 7.3/22.2 History of present illness: 84 years old male presented to the hospital with presyncope with a 911 He was found to have a hemoglobin hematocrit 7.3 and 22.2 with dark melanotic stools Patient does have atrial fibrillation on Eliquis 5 mg twice daily coronary artery status post CABG congestive heart failure ejection fraction unknown diabetes mellitus type 2 BPH and had a history of CVA in 2021 also does carry a diagnosis of melanoma Chest x-ray shows pulmonary vascular congestion CT scan of the head was negative for any bleed cc:: cc: Review of Systems Review of Systems Systems Reviewed: All systems reviewed, normal except as documented Past Medical History Surgical History OTHER SURGICAL HX: As in the history of present illness Meds Home Medications and Allergies Home Medications ?Medication ?Instructions ?Recorded ?Confirmed ?Type finasteride 5 mg tablet (Proscar) 5 mg PO QDAY #0 tabs 05/13/15 06/24/22 History simvastatin 40 mg tablet (Zocor) 40 mg PO HS #0 tabs 05/13/15 06/24/22 History tiotropium bromide 2.5 2 puff inhalation QDAY #0 puffs 07/26/16 06/24/22 History mcg/actuation mist for inhalation (Spiriva Respimat) budesonide 1 mg/2 mL suspension 2 ml inhalation BID PRN sob 09/30/18 06/24/22 History for nebulization (Pulmicort) apixaban 5 mg tablet (Eliquis) 5 mg PO BID 12/02/21 06/24/22 History diltiazem HCl 180 mg 180 mg PO QDAY 12/02/21 06/24/22 History capsule,extended release 24 hr metformin 1,000 mg tablet 1,000 mg PO BID 12/02/21 06/24/22 History spironolactone 50 mg tablet 100 mg PO QDAY 12/02/21 06/24/22 History albuterol sulfate 90 mcg/actuation 1 - 2 puff inhalation Q4H PRN sob 06/24/22 06/24/22 History aerosol inhaler (ProAir HFA) bumetanide 2 mg tablet 2 mg PO BID 06/24/22 06/24/22 History linaclotide 145 mcg capsule 145 mcg PO QAM 06/24/22 06/24/22 History (Linzess) potassium chloride 20 mEq 20 meq PO QDAY 06/24/22 06/24/22 History tablet,extended release Allergies Allergy/AdvReac Type Severity Reaction Status Date / Time No Known Allergies Allergy Verified 12/21/24 13:12 Exam Vital Signs Temp Pulse Resp BP Pulse Ox O2 Del Method O2 Flow Rate 97.8 F 67 20 96/62 95 Nasal Cannula 2 01/20/25 12:25 01/20/25 12:42 01/20/25 12:25 01/20/25 12:42 01/20/25 12:25 01/20/25 12:01/20/25 12:25 Constitutional Comments: Chronically ill-appearing Routine Respiratory Exam Comments: Scattered rhonchi Routine Abdominal Exam Comments: Soft nontender Results Labs 01/20/25 11:26 01/20/25 11:26 Labs: Short CBC 01/20/25 Range/Units 11:26 WBC 13.0 H (3.8-10.6) Thou/mm3 Hgb 7.3 L (13.5-16.0) g/dL Hct 22.2 L (41.0-53.0) % Plt Count 333 D (140-440) Thou/mm3 BMP 01/20/25 11:26 Sodium 134 L Potassium 4.5 Chloride 103 Carbon Dioxide 23.1 BUN 30 H Creatinine 1.6 H Glucose 176 H Calcium 8.4 Cardiac Enzymes 01/20/25 Range/Units 11:26 Total Creatine Kinase 163 (34-171) U/L Troponin I < 0.020 (0.0-0.045) ng/mL Liver Function 01/20/25 Range/Units 11:26 Total Bilirubin 0.5 (0.3-1.2) mg/dL AST 15 (0-34) U/L ALT 11 (10-49) U/L Alkaline Phosphatase 66 (46-116) U/L Albumin 4.1 (3.4-4.8) gm/dL Urine 01/20/25 Range/Units 11:15 Urine Color Colorless A (Lt Yel-Yel) Urine Clarity Clear (Clear/Hazy) Urine pH 6.0 (5.0-7.0) Ur Specific [place] 1.011 (1.001-1.035) Urine Protein Negative (Neg - Trace) Urine Glucose (UA) Negative (Negative) ABG Interpretation ABG results: 01/20/25 11:30 ABG pH 7.44 ABG pCO2 36 ABG pO2 99 ABG HCO3 24 ABG O2 Saturation 99 H ABG Base Excess 0 Assessment and Plan Additional Assessment & Plan Additional Plan: # Occult GI bleeding # Acute posthemorrhagic anemia Plan Case discussed with the internal medicine team in the ER team Patient will be given 2 units of PRBCs Clear liquid diet up until midnight tonight N.p.o. after midnight except p.o. meds Consent obtained for fiberoptic esophagogastroduodenoscopy with possible therapeutic intervention possible biopsy under intravenous moderate sedation If EGD is negative we will consider doing a fiberoptic colonoscopy prior to discharge as there is a significant drop in hemoglobin hematocrit which was 12.3 and 36.7 on 12/21/2024 Other medical problems include Chronic atrial fibrillation decrease the Eliquis to 2.5 mg p.o. twice daily but continue the as patient already had a stroke before and the risk of stroke again which is much higher Coronary artery disease status post CABG Congestive heart failure systolic BPH CVA 2021 History of melanoma Thank you very much for the opportunity to participate in the care of this patient
[2025-01-20 15:41] LABS: Lactic Acid, 3 HR 1.5 mMol/L (0.4-2.0)
--- NOTE | 2025-01-20 16:08 | PD.RESHP ---
Documentation for date of: 01/20/25 [facility] History of Present Illness Chief complaint: presyncope History of present illness: Mr. Worthington is a 84-year-old male with past medical history significant for chronic A-fib on Eliquis, CAD status post CABG, CHF, nng-uynaeqa-ezxcolrlw type 2 diabetes, BPH, melanoma, hearing loss, dementia, history of stroke in 2021, right retinal tear surgery came to the ED with a presyncope episode. Patient seen and examined at bedside, and is a very poor historian. Patient denies having any presyncopal like episode and does not remember what happened as to why he is in the hospital but does mention that he feels congested, and has been having a cough for the last 2 days. However, patient is alert and oriented x 3. Most of history was obtained from patient's and ED note. Per , patient had developed a presyncopal like episode and slouched over onto his bed after eating breakfast. Patient was unarousable for 15 minutes before gaining consciousness. Of note, patient did have difficulty breathing last night, but did not require any increase in his oxygen requirement. Per , patient did not hit his head on a ground level surface, had any fevers, chills, abdominal pain, have any urinary incontinence chest pain, headache or dizziness, lightheadedness or any blood in his stools. ER course: Patient presented with a blood pressure 136/51, heart rates in the 70s, otherwise vital signs unremarkable. He has been saturating well on 2 L nasal cannula. EKG showed A-fib with slow ventricular response, QTc of 453, left axis deviation and right bundle branch block. CT head brain without contrast was negative for any hemorrhage but did show old infarct to right occipital lobe. CT spine without contrast showed osteolytic lesion in the odontoid otherwise no apparent cervical fractures. ABG showed no acid-base disturbances. COVID-19/flu were negative. UA negative U tox negative. Chest x-ray showed prominent vascular congestion with CHF pattern. FOBT was positive. Of note hemoglobin currently 7.3, but dropped from last month which was around 12.3. Mild ALEXEI, with a creatinine of 1.6. Lactic acidosis also elevated at 2.5. In the ER, patient was given Protonix 40 mg IV x 1, calcium carbonate, and a breathing treatment. Patiently admitted for further management of GI bleed. Review of Systems Review of Systems Systems Reviewed: All systems reviewed, normal except as documented Past Medical History Past Medical History Comments PMH COMMENT: Past medical history as mentioned above Past surgical history: CABG, right retinal tear surgery 20 years ago Social history: Quit smoking about 7 to 8 years ago, and used to smoke 1 pack daily. Drinks alcohol socially. Lives with his . Denies any other illicit drug use. Allergies: NKDA Home medications: Aspirin 81 mg once daily, metformin 500 mg twice daily, Bumex 1 mg 3 times daily, Eliquis 5 mg twice daily, finasteride 5 mg once daily, gabapentin 100 mg 2 tablets in the morning, 2 tablet in the afternoon and 3 tablets at night, Spiriva 2-5 puffs every day, simvastatin 40 mg at bedtime, Pulmicort, diltiazem extended release 120 mg once daily, donepezil 10 mg once daily, Linzess 70 mg daily Family history: Nonsignificant Exam Vital Signs Temp Pulse Resp BP Pulse Ox O2 Del Method O2 Flow Rate 97.8 F 67 20 96/62 95 Nasal Cannula 2 01/20/25 12:25 01/20/25 12:42 01/20/25 12:25 01/20/25 12:42 01/20/25 12:25 01/20/25 12:25 01/20/25 12:25 Narrative Exam General Appearance: Pt in no apparent distress, laying comfortably in bed. Well-nourished, well-developed with nasal cannula. Easily forgetful. HEENT: NC/AT, no scleral icterus, no conjunctival pallor, MMM Lungs: Decreased breath sounds in left lower base, otherwise no wheezes or crackles appreciated. CVS: Irregular rate and rhythm, S1/S2 heard, no murmurs or rubs appreciated, 2+ pitting edema in lower extremities ABD: Soft, non-tender, non-distended, BS + in all 4 quadrants EXT: no deformity/edema/lesions/cyanosis/clubbing, radial pulses 2+ BL, DP pulses 2 + BL SKIN: Skin exam normal without any rashes. Neuro: A&O x [address] and and date. No gross neurological deficits. Motor and sensory grossly intact in B/L UL and LL. Psych: Appropriate mood and affect Results: Labs 01/20/25 11:26 01/20/25 11:26 Labs: Short CBC 01/20/25 Range/Units 11:26 WBC 13.0 H (3.8-10.6) Thou/mm3 Hgb 7.3 L (13.5-16.0) g/dL Hct 22.2 L (41.0-53.0) % Plt Count 333 D (140-440) Thou/mm3 BMP 01/20/25 11:26 Sodium 134 L Potassium 4.5 Chloride 103 Carbon Dioxide 23.1 BUN 30 H Creatinine 1.6 H Glucose 176 H Calcium 8.4 Cardiac Enzymes 01/20/25 Range/Units 11:26 Total Creatine Kinase 163 (34-171) U/L Troponin I < 0.020 (0.0-0.045) ng/mL Liver Function 01/20/25 Range/Units 11:26 Total Bilirubin 0.5 (0.3-1.2) mg/dL AST 15 (0-34) U/L ALT 11 (10-49) U/L Alkaline Phosphatase 66 (46-116) U/L Albumin 4.1 (3.4-4.8) gm/dL Urine 01/20/25 Range/Units 11:15 Urine Color Colorless A (Lt Yel-Yel) Urine Clarity Clear (Clear/Hazy) Urine pH 6.0 (5.0-7.0) Ur Specific [place] 1.011 (1.001-1.035) Urine Protein Negative (Neg - Trace) Urine Glucose (UA) Negative (Negative) ABG Interpretation ABG results: 01/20/25 11:30 ABG pH 7.44 ABG pCO2 36 ABG pO2 99 ABG HCO3 24 ABG O2 Saturation 99 H ABG Base Excess 0 Quality Measures Quality Measures none Advance care planning discussed with:: spouse and child Medications Home Medications and Allergies Home Medications ?Medication ?Instructions ?Recorded ?Confirmed ?Type finasteride 5 mg tablet (Proscar) 5 mg PO QDAY #0 tabs 05/13/15 06/24/22 History simvastatin 40 mg tablet (Zocor) 40 mg PO HS #0 tabs 05/13/15 06/24/22 History tiotropium bromide 2.5 2 puff inhalation QDAY #0 puffs 07/26/16 06/24/22 History mcg/actuation mist for inhalation (Spiriva Respimat) budesonide 1 mg/2 mL suspension 2 ml inhalation BID PRN sob 09/30/18 06/24/22 History for nebulization (Pulmicort) apixaban 5 mg tablet (Eliquis) 5 mg PO BID 12/02/21 06/24/22 History diltiazem HCl 180 mg 180 mg PO QDAY 12/02/21 06/24/22 History capsule,extended release 24 hr metformin 1,000 mg tablet 1,000 mg PO BID 12/02/21 06/24/22 History spironolactone 50 mg tablet 100 mg PO QDAY 12/02/21 06/24/22 History albuterol sulfate 90 mcg/actuation 1 - 2 puff inhalation Q4H PRN sob 06/24/22 06/24/22 History aerosol inhaler (ProAir HFA) bumetanide 2 mg tablet 2 mg PO BID 06/24/22 06/24/22 History linaclotide 145 mcg capsule 145 mcg PO QAM 06/24/22 06/24/22 History (Linzess) potassium chloride 20 mEq 20 meq PO QDAY 06/24/22 06/24/22 History tablet,extended release Allergies Allergy/AdvReac Type Severity Reaction Status Date / Time No Known Allergies Allergy Verified 12/21/24 13:12 Visit Medications Acetaminophen (Acetaminophen 325 Mg Tablet) 650 mg PO Q6H PRN PRN Reason: Fever >100.3 or Pain 1-3 Stop: 02/19/25 15:40 Metoclopramide HCl (Metoclopramide 5 Mg Tablet) 10 mg PO Q6H PRN PRN Reason: NAUSEA OR VOMITING Stop: 02/19/25 15:40 Pantoprazole Sodium (Pantoprazole Inj 40 Mg Vial) 40 mg IV BID WALDEMAR Stop: 02/20/25 03:59 Discontinued Medications Albuterol/Ipratropium (Albuterol/Ipratropium (Duoneb) Rt Joselyn 3 Ml Nebu) 3 ml INH X1 ONE Stop: 01/20/25 10:53 Last Admin: 01/20/25 11:17 Dose: 3 ml Calcium Carbonate (Calcium Carbonate 600 Mg Tablet) 600 mg PO X1 ONE Stop: 01/20/25 13:12 Last Admin: 01/20/25 13:43 Dose: 600 mg Pantoprazole Sodium (Pantoprazole Inj 40 Mg Vial) 40 mg IV X1 ONE Stop: 01/20/25 12:58 Last Admin: 01/20/25 13:13 Dose: 40 mg Pantoprazole Sodium (Pantoprazole Inj 40 Mg Vial) 40 mg IV X1 ONE Stop: 01/20/25 16:00 Assessment & Plan Plan Mr. Worthington is a 84-year-old male with past medical history significant for chronic A-fib on Eliquis, CAD status post CABG, CHF, enu-jyrmndo-qwquvbbve type 2 diabetes, BPH, melanoma, hearing loss, dementia, history of stroke in 2021, right retinal tear surgery came to the ED with a presyncope episode and admitted for further management of GI bleed. #Presyncope most likely in the setting of #?GI bleed #Reactive Leukocytosis Patient presented with episode of presyncope after eating breakfast this morning. Patient was staring up into the ashley for about 15 minutes and for gaining consciousness. Most likely upper GI bleed vs. lower GI bleed. Pt presented with low hemoglobin count of 7.3, baseline is around twelve 1 month ago, December 2024 FOBT positive Patient denies having any hematochezia. -Admitted to Telemetry -Consulted GI, Dr. Gayle, appreciate recs -NPO after midnight clear Liquid Diet until then, for EGD tomorrow -Type and Screen -Will order 2u of pRBC transfusion given -Consider ordering CT Abd/Pelvis -Follow daily CBC/BMP -Started on Protonix IV 40mg twice daily -Will decrease patient's chronic Eliquis dose for A-fib to 2.5 mg twice daily based on current creatinine level and patient's age meeting 2 out of 3 criteria for low-dose Eliquis -Will order echocardiogram to assess current CHF status -Every 4 neurochecks #ALEXEI Cr on presentation was 1.6. Baseline is 1.3. Most likely pre-renal due to possible dehydration vs diuretic use -Consider starting IVF however doesn't appear to be clinically dry -Avoid nephrotoxin agents -Continue to monitor signs and symptoms #?CHF Exacerbation #CAD s/p CABG #History of CVA in 2021 Patient complains of cough for the last two days, and PE prominent for decreased breath sounds in LBB. BNP mildly elevated at 211. Patient chronically takes Bumex, ASA -Will hold ASA in the setting of possible active GI bleed -Will resume patient's dose equivalent home simvastatin -Fluid restriction 1500ml -Strict I's/O's -daily weights -Will order new echocardiogram #Chronic atrial fibrillation Kristian Vascor is 7. Patient is chronically on Eliquis 5 mg twice daily EKG on admission showed A-fib with slow ventricular rate - Will decrease patient's Eliquis dose to 2.5 mg twice daily to reflect current creatinine level and age - Will resume Diltiazem 120 ER when patient's HR/BP can tolerate #Type 2 diabetes not on chronic insulin therapy -Ordered A1c in a.m. - Hypoglycemic protocol in place - ISS #BPH -will resume patient's home tamsulosin and finasteride #Dementia-stable Patient does take Donepezil 10mg HS - Will resume home Donepezil - Continue to monitor for any neuro changes - Q4 neuroccks Health Maintenance: DVT prophylaxis: SCDs Diet: Cardiac Robertson: No Lines: PIV Supplemental O2: Baseline 2 to 3 L CODE STATUS: Limited code, chest compressions are okay for 5 to 10 minutes, DNI Disposition: Patient admitted to telemetry for further management of GI bleed Patient's plan and care discussed with my attending, Dr. Gil Kapadia MD PGY-2 Attending Provider Attestation/Addendum I have discussed and was present for the essential components of the history, physical examination, diagnosis, and treatment plan with the resident. I agree with the patient's care as documented by the resident and amended herein by me. Stefan Cordero DO. Although this document has been carefully reviewed, there may still be some phonetic and other typographical errors. These errors are purely grammatical due to imperfections in the software program and should not be construed in any way to compromise the substance of the patient's medical care during this visit.
[2025-01-20 16:26] LABS: Reflex Lactate? Y
[2025-01-20 16:46] LABS: Lactic Acid, 3 HR 1.2 mMol/L (0.4-2.0)
[2025-01-20] MEDS: APIXABAN 2.5 MG TABLET PO (21:28)
[2025-01-20] MEDS: ATORVASTATIN CALCIUM 20 MG TABLET PO (21:28)
[2025-01-20] MEDS: DONEPEZIL HCL 5 MG TABLET 10 MG PO (21:29)
[2025-01-20 23:20] LABS: Hematocrit 27.9 % (41.0-53.0); Hemoglobin 9.6 g/dL (13.5-16.0)
[2025-01-21] VITALS (20 sets, daily range): BP systolic 109–139; BP diastolic 54–82; PULSE 33–99; RESP 14–24; TEMP 35.9–37; O2SAT 93–100; BMI 38.2
[2025-01-21] MEDS: ALBUTEROL/IPRATROPIUM (Duoneb) RT SOL 3 ML NEBU INH ×3 (04:24→15:15)
[2025-01-21] MEDS: PANTOPRAZOLE INJ 40 MG VIAL IV ×3 (04:47→21:08)
[2025-01-21 06:06] LABS: Basophils # (Auto) 0.1 Thou/mm3 (0.0-0.2); Basophils % (Auto) 0 % (0-2.5); Eosinophils # (Auto) 0.4 Thou/mm3 (0.0-0.5); Eosinophils % (Auto) 3 % (0-10); Hemoglobin 9.9 g/dL (13.5-16.0); Immature Granulocytes % (Auto) 0 % (0-0); Immature Granulocytes Auto 0.06 Thou/mm3 (0.00-0.00); Lymphocytes # (Auto) 2.1 Thou/mm3 (1.0-4.8); Lymphocytes % (Auto) 15 % (10-50); Mean Corpuscular HGB Conc 34.1 g/dl (31.0-37.0); Mean Corpuscular Hemoglobin 29.9 pg (25.0-35.0); Mean Corpuscular Volume 88 fL (80-100); Monocytes # (Auto) 1.3 Thou/mm3 (0.0-0.8); Monocytes % (Auto) 9 % (0-12); Neutrophils # (Auto) 10.7 Thou/mm3 (1.8-7.7); Neutrophils % (Auto) 73 % (37-80); Nucleated Red Blood Cell % 0 /100 WBC (0); Platelet Count 321 Thou/mm3 (140-440); RDW Standard Deviation 44.6 fL (35.1-43.9); Red Blood Count 3.31 Miln/mm3 (4.50-5.90); White Blood Count 14.5 Thou/mm3 (3.8-10.6)
[2025-01-21 06:29] LABS: Alanine Aminotransferase 11 U/L (10-49); Albumin/Globulin Ratio 1.8 (1.2-2.2); Alkaline Phosphatase 68 U/L (46-116); Anion Gap 9 (7-16); Aspartate Amino Transferase 17 U/L (0-34); BUN/Creatinine Ratio 18 Ratio (12-20); Bilirubin,Total 0.9 mg/dL (0.3-1.2); Blood Urea Nitrogen 24 mg/dL (9-23); Calcium 8.6 mg/dL (8.3-10.6); Calcium (Corrected) 8.6 mg/dL (8.5-10.1); Carbon Dioxide 24.3 mMol/L (20.0-31.0); Chloride 102 mMol/L (98-107); Cholesterol 131 mg/dL (132-200); Creatinine (Component) 1.3 mg/dL (0.6-1.3); Estimated Creatinine Clearance 43.8 mL/min (>60); Globulin 2.2 gm/dL (2.3-3.5); Glucose 144 mg/dL (74-106); HDL Cholesterol 66 mg/dL (40-60); LDL Cholesterol,Calculated 36 mg/dL (0-130); Osmolality,Calculated 277 (275-295); Potassium 3.9 mMol/L (3.4-5.1); Sodium 135 mMol/L (136-145); Thyroid Stimulating Hormone 1.06 uIU/mL (0.55-4.78); Total Protein 6.2 gm/dL (5.7-8.2); Triglycerides 145 mg/dL (30-150); eGFR 54 See Note
[2025-01-21 06:38] LABS: Glucose Estimated Average 131 mg/dL (80-131); Hemoglobin A1C 6.2 % Hgb (4.8-6.0)
[2025-01-21] MEDS: TAMSULOSIN HCL 0.4 MG CAPSULE PO (08:47)
[2025-01-21] MEDS: FINASTERIDE 5 MG TABLET PO (08:47)
[2025-01-21] MEDS: APIXABAN 2.5 MG TABLET PO ×2 (08:47→21:08)
[2025-01-21] MEDS: BUDESONIDE RT 0.25 MG/2 ML NEBU INH (09:10)
[2025-01-21] MEDS: MORPHINE SULF INJ 10 MG/ML VIAL 2 MG IVP (11:14)
[2025-01-21] MEDS: PREGABALIN 75 MG CAPSULE PO (11:20)
[2025-01-21 11:42] LABS: Uric Acid 9.2 mg/dL (3.7-9.2)
[2025-01-21] MEDS: COLCHICINE 0.6 MG TABLET 1.2 MG PO (14:39)
[2025-01-21] MEDS: ACETAMINOPHEN 325 MG TABLET 650 MG PO (14:46)
--- NOTE | 2025-01-21 15:44 | ECHO_ITS ---
Transthoracic Echo Report Ht (in): 64 Wt (lb): 223 Exam Location: Portable Status: Inpatient [facility] Pinion Adjuster: CHUCKY Solitario^^^^ Indications: Procedure Performed: BP: / HR: 106 Rhythm: Atrial flutter Technical Quality: Fair MEASUREMENTS (Male / Female) Normal Values 2D ECHO LV Diastolic Diameter PLAX 4.0 cm 4.2 - 5.9 / 3.9 - 5.3 cm LV Systolic Diameter PLAX 2.6 cm IVS Diastolic Thickness 1.2 cm 0.6 - 1.0 / 0.6 - 0.9 cm LVPW Diastolic Thickness 1.3 cm 0.6 - 1.0 / 0.6 - 0.9 cm LV Relative Wall Thickness 0.6 LVOT Diameter 1.8 cm Aortic Root Diameter 3.1 cm LA Systolic Diameter LX 5.1 cm 3.0 - 4.0 / 2.7 - 3.8 cm LA Volume Index 53.8 cm?/m? 16 - 28 cm?/m? Ascending Aorta Diameter 3.3 cm DOPPLER AV Peak Velocity 177.0 cm/s AV Peak Gradient 12.5 mmHg AV Mean Gradient 6.0 mmHg AV Velocity Time Integral 31.6 cm LVOT Peak Velocity 83.5 cm/s LVOT Peak Gradient 2.8 mmHg LVOT Velocity Time Integral 13.5 cm LVOT Cardiac Index 1665.6 cm?/min?m? AV Area Cont Eq vti 1.1 cm? AV Area Cont Eq pk 1.2 cm? MV Area PHT 3.7 cm? Mitral E Point Velocity 118.0 cm/s LV E' Lateral Velocity 12.9 cm/s Mitral E to LV E' Lateral Ratio 9.1 LV E' Septal Velocity 14.9 cm/s Mitral E to LV E' Septal Ratio 7.9 TR Peak Velocity 311.3 cm/s TR Peak Gradient 38.8 mmHg PV Peak Velocity 155.0 cm/s PV Peak Gradient 9.6 mmHg RVOT Peak Velocity 66.5 cm/s FINDINGS Left Ventricle Normal left ventricular size, wall thickness, systolic function with no obvious regional wall motion abnormalities. There is grade II diastolic dysfunction of the left ventricle (pseudonormal filling pattern).the left ventricular ejection fraction is normal, estimated at 55-60%. Right Ventricle The right ventricle is normal in size and systolic function. The estimated right ventricular systolic pressure, 45 mmHg. Left Atrium Mildly increased left atrial volume 53.8 mL/m?. Right Atrium The right atrium is normal by two-dimensional imaging, color flow and Doppler imaging with no structural abnormalities, no thrombus formation present. Atrial Septum The interatrial septum appears normal with no evidence of a shunt. Aorta The aorta is normal by two-dimensional, color flow and Doppler interrogation. Mitral Valve Trace to mild mitral regurgitation. Mild mitral annular calcification. Aortic Valve Aortic valve sclerosis. Trace to mild aortic valve regurgitation. Tricuspid Valve There is mild tricuspid valve regurgitation. Pulmonic Valve Trivial pulmonic valve regurgitation. Vessels The pulmonary artery appears normal. The inferior vena cava pulmonary and hepatic veins appear normal. Pericardium The pericardium is normal by two-dimensional imaging. There is no significant pericardial effusion. CONCLUSIONS Indication: presyncope Normal left ventricular size and function. Approximate ejection fraction is 55%. RV appears normal eith RVSP 45 mmHg. Mildly dilated LA. Mild mitral and tricusoid regurgitation Aortic valve sclerosis with no stenosis. Bertha Son (Electronically Signed) Final Date: 21 Jan 2025 15:09
--- NOTE | 2025-01-21 15:48 | PC.SS ---
Follow up note: EGD today.
--- NOTE | 2025-01-21 16:52 | PD.RESPRO ---
Documentation for date of: 01/21/25 Subjective Subjective Interval history: Overnight, no acute events reported. Patient denies having any bloody stools or urine. However, patient did have extreme pain to his right foot, extremely tender to light touch on his right sole. Uric acid was elevated. Patient started on colchicine loading dose, and then will continue with maintenance dose of 0.6 mg daily. Patient also started on pregabalin 50 mg 3 times daily for possible neuropathy. Patient continues to be n.p.o., and will receive EGD today. Exam Vital Signs Temp Pulse Resp BP Pulse Ox O2 Del Method O2 Flow Rate 97.6 F 89 14 120/71 97 Nasal Cannula 3 01/21/25 12:00 01/21/25 16:45 01/21/25 16:45 01/21/25 16:45 01/21/25 16:45 01/21/25 12:00 01/21/25 16:45 Narrative Exam General Appearance: Pt was very uncomfortable, squirming in bed. Well-nourished, well-developed with nasal cannula. Easily forgetful. HEENT: NC/AT, no scleral icterus, no conjunctival pallor, MMM Lungs: Decreased breath sounds in left lower base, otherwise no wheezes or crackles appreciated. CVS: Irregular rate and rhythm, S1/S2 heard, no murmurs or rubs appreciated, 2+ pitting edema in lower extremities ABD: Soft, non-tender, non-distended, BS + in all 4 quadrants EXT: Extreme tenderness to light touch of right sole, and warm to touch but no erythema noted SKIN: Skin exam normal without any rashes. Neuro: A&O x [address] and and date. No gross neurological deficits. Motor and sensory grossly intact in B/L UL and LL. Psych: Appropriate mood and affect Objective Labs 01/21/25 05:26 01/21/25 05:26 Labs: Laboratory Results - last 24 hr 01/20/25 01/20/25 01/21/25 13:15 23:14 05:26 WBC 14.5 H RBC 3.31 L Hgb 9.6 L D 9.9 L Hct 27.9 L 29.0 L MCV 88 MCH 29.9 MCHC 34.1 RDW Std Deviation 44.6 H Plt Count 321 Neut % (Auto) 73 Lymph % (Auto) 15 [place] % (Auto) 9 Eos % (Auto) 3 Baso % (Auto) 0 Neut # (Auto) 10.7 H Lymph # (Auto) 2.1 [place] # (Auto) 1.3 H Eos # (Auto) 0.4 Baso # (Auto) 0.1 Immature Gran # (Auto) 0.06 H Absolute Nucleated RBC 0.00 Immature Gran % 0 Nucleated RBC % 0 Sodium 135 L Potassium 3.9 D Chloride 102 Carbon Dioxide 24.3 Anion Gap 9 BUN 24 H Creatinine 1.3 Estim Creat Clear Calc 43.8 L eGFR 54 L BUN/Creatinine Ratio [address]ucose [address] Glu mg/dL 131 Hemoglobin A1c 6.2 H Calculated Osmolality 277 Uric Acid 9.2 Calcium 8.6 Corrected Calcium 8.6 Magnesium 2.0 Total Bilirubin 0.9 AST 17 ALT 11 Alkaline Phosphatase 68 Total Protein 6.2 Albumin 4.0 Globulin 2.2 L Albumin/Globulin Ratio 1.8 Triglycerides 145 Cholesterol 131 L LDL Cholesterol, Calc 36 HDL Cholesterol 66 H Cholesterol/HDL Ratio 2.0 L TSH 1.06 Blood Type A Positive Antibody Screen NEGATIVE Crossmatch See Detail Blood Bank Wristband ID Yes ABG Interpretation ABG results: 01/20/25 11:30 ABG pH 7.44 ABG pCO2 36 ABG pO2 99 ABG HCO3 24 ABG O2 Saturation 99 H ABG Base Excess 0 Quality Measures Quality Measures none Advance care planning discussed with:: significant other Assessment & Plan Assessment Current Active Medications: Generic Name Dose Route Start Last Admin Trade Name Freq PRN Reason Stop Dose Admin Acetaminophen 650 mg 01/20/25 15:41 01/21/25 14:46 Acetaminophen 325 Mg Tablet PO 02/19/25 15:40 650 mg Q6H PRN Administration Fever >100.3 or Pain 1-3 Albuterol/Ipratropium 3 ml 01/20/25 17:24 01/21/25 15:15 Albuterol/Ipratropium (Duoneb) Rt Joselyn 3 Ml Nebu INH 02/19/25 17:23 3 ml Q4HR PRN Administration SHORTNESS OF BREATH OR WHEEZE Protocol Apixaban 2.5 mg 01/20/25 21:00 01/21/25 08:47 Apixaban 2.5 Mg Tablet PO 02/19/25 20:59 2.5 mg BID WALDEMAR Administration Atorvastatin Calcium 20 mg 01/20/25 21:00 01/20/25 21:28 Atorvastatin Calcium 20 Mg Tablet PO 02/19/25 20:59 20 mg HS WALDEMAR Administration Budesonide 0.25 mg 01/20/25 16:54 01/21/25 09:10 Budesonide Rt 0.25 Mg/2 Ml Nebu INH 02/19/25 18:59 0.25 mg BIDRT PRN Administration SHORTNESS OF BREATH Protocol Colchicine 0.6 mg 01/21/25 15:45 01/21/25 15:33 Colchicine 0.6 Mg Tablet PO 02/20/25 15:44 Not Given QDAY WALDEMAR Dextrose 25 ml 01/20/25 16:28 Dextrose 50%-Water Inj 50 Ml Syringe IV 02/19/25 16:27 Q15MIN PRN BG 50-70 responsive npo pt Dextrose 50 ml 01/20/25 16:28 Dextrose 50%-Water Inj 50 Ml Syringe IV 02/19/25 16:27 Q15MIN PRN BG <50 OR BG <70 & pt unresponsive Diphenhydramine HCl 25 mg 01/21/25 16:23 Diphenhydramine Inj 50 Mg/Ml Vial IV 01/21/25 18:23 PRNMRX1 PRN MODERATE SEDATION Donepezil HCl 10 mg 01/20/25 21:00 01/20/25 21:29 Donepezil Hcl 5 Mg Tablet PO 02/19/25 20:59 10 mg HS WALDEMAR Administration Fentanyl Citrate 50 mcg 01/21/25 16:23 Fentanyl Cit Inj 50 Mcg/Ml Amp 2ml IV 01/21/25 18:23 Q2M PRN MODERATE SEDATION Finasteride 5 mg 01/21/25 09:00 01/21/25 08:47 Finasteride 5 Mg Tablet PO 02/20/25 08:59 5 mg QDAY WALDEMAR Administration Glucagon 1 mg 01/20/25 16:28 Glucagon Inj 1 Mg Vial IM Q15MIN PRN BG <70, and no IV access Insulin Human Lispro 0 unit 01/20/25 17:00 01/21/25 11:25 Insulin Lispro (Admelog) 1 Unit/0.01 Ml Unit SC 02/19/25 16:59 Not Given AC [facility] Protocol Metoclopramide HCl 10 mg 01/20/25 15:41 Metoclopramide 5 Mg Tablet PO 02/19/25 15:40 Q6H PRN NAUSEA OR VOMITING Midazolam HCl 2 mg 01/21/25 16:23 Midazolam Inj 1 Mg/Ml Vial 2 Ml IV 01/21/25 18:23 Q2M PRN Moderate Sedation Pantoprazole Sodium 40 mg 01/21/25 04:00 01/21/25 08:47 Pantoprazole Inj 40 Mg Vial IV 02/20/25 03:59 40 mg BID WALDEMAR Administration Pregabalin 50 mg 01/21/25 22:00 Pregabalin 50 Mg Capsule PO 02/20/25 21:59 TID WALDEMAR Tamsulosin HCl 0.4 mg 01/21/25 09:00 01/21/25 08:47 Tamsulosin Hcl 0.4 Mg Capsule PO 02/20/25 08:59 0.4 mg QDAY WALDEMAR Administration Plan Mr. Worthington is a 84-year-old male with past medical history significant for chronic A-fib on Eliquis, CAD status post CABG, CHF, [id number] type 2 diabetes, BPH, melanoma, hearing loss, dementia, history of stroke in 2021, right retinal tear surgery came to the ED with a presyncope episode and admitted for further management of GI bleed. #Presyncope most likely in the setting of #?GI bleed #Reactive Leukocytosis Patient presented with episode of presyncope after eating breakfast this morning. Patient was staring up into the ashley for about 15 minutes and for gaining consciousness. Most likely upper GI bleed vs. lower GI bleed. Pt presented with low hemoglobin count of 7.3, baseline is around twelve 1 month ago, December 2024 FOBT positive Patient denies having any hematochezia. So far 2 units of packed RBC given -Admitted to Telemetry -Consulted GI, Dr. Gayle, appreciate recs -EGD today -Type and Screen -Consider ordering CT Abd/Pelvis if symptoms and vital signs change -Follow daily CBC/BMP -Started on Protonix IV 40mg twice daily -Will decrease patient's chronic Eliquis dose for A-fib to 2.5 mg twice daily based on current creatinine level and patient's age meeting 2 out of 3 criteria for low-dose Eliquis -Will order echocardiogram to assess current CHF status -Every 4 neurochecks #ALEXEI Cr on presentation was 1.6. Baseline is 1.3. Most likely pre-renal due to possible dehydration vs diuretic use -Consider starting IVF however doesn't appear to be clinically dry -Avoid nephrotoxin agents -Continue to monitor signs and symptoms #?CHF Exacerbation #CAD s/p CABG #History of CVA in 2021 Patient complains of cough for the last two days, and PE prominent for decreased breath sounds in LBB. BNP mildly elevated at 211. Patient chronically takes Bumex, ASA Echocardiogram showed normal ejection fraction of 55%, normal LV size and function and RV normal with mildly elevated LA, mitral and tricuspid regurg. -Will hold ASA in the setting of possible active GI bleed -Will resume patient's dose equivalent home simvastatin -Fluid restriction 1500ml -Strict I's/O's -daily weights #Chronic atrial fibrillation Kristian Vascor is 7. Patient is chronically on Eliquis 5 mg twice daily EKG on admission showed A-fib with slow ventricular rate - Will decrease patient's Eliquis dose to 2.5 mg twice daily to reflect current creatinine level and age - Will resume Diltiazem 120 ER when patient's HR/BP can tolerate #Type 2 diabetes not on chronic insulin therapy #Diabetic neuropathy Last A1c was 6.2% - Hypoglycemic protocol in place - ISS - Will start patient on pregabalin 50 mg 3 times daily #BPH -will resume patient's home tamsulosin and finasteride #Dementia-stable Patient does take Donepezil 10mg HS - Will resume home Donepezil - Continue to monitor for any neuro changes - [facility] Maintenance: DVT prophylaxis: SCDs Diet: Cardiac Robertson: No Lines: PIV Supplemental O2: Baseline 2 to 3 L CODE STATUS: Limited code, chest compressions are okay for 5 to 10 minutes, DNI Disposition: Patient admitted to telemetry for further management of GI bleed Patient's plan and care discussed with my attending, Dr. Gil Kapadia MD PGY-2 Attending Provider Attestation/Addendum I have discussed and was present for the essential components of the history, physical examination, diagnosis, and treatment plan with the resident. I agree with the patient's care as documented by the resident and amended herein by me. Stefan Cordero DO. Patient seen and evaluated this AM. No acute events overnight however the patient was having severe right foot pain this morning, suspected gout, uric acid was drawn and was 9.6, other significant labs include a WBC of 14.5, hemoglobin stable at 9.9, BUN 24 and creatinine downtrended to 1.3 today. EGD is scheduled today for the patient suspected GI bleed, will continue Protonix 40 mg IV twice daily. For the patient's gout, will start colchicine for the patient's gout, will start colchicine today and continue to monitor. Cannot give NSAIDs at this time, patient is on allopurinol at home. Will continue to monitor closely. Although this document has been carefully reviewed, there may still be some phonetic and other typographical errors. These errors are purely grammatical due to imperfections in the software program and should not be construed in any way to compromise the substance of the patient's medical care during this visit.
[2025-01-21] MEDS: NA SU/NAHCO3/KC/PEG (Golytely) 4,000 ML BTL 4000 ML PO (18:19)
[2025-01-21] MEDS: ATORVASTATIN CALCIUM 20 MG TABLET PO (21:07)
[2025-01-21] MEDS: PREGABALIN 50 MG CAPSULE PO (21:08)
[2025-01-21] MEDS: DONEPEZIL HCL 5 MG TABLET 10 MG PO (21:08)
--- NOTE | 2025-01-21 21:44 | PC.NURSE ---
spoke to pt's Any over the phone( [phone]) to let her know that pt will need the NG tube to give him the golytely since he is refusing to drink it. Pt's stated that she wants to explore other options before Ng tube for her . is requesting pills instead of golytely or NG tube if possible. Dr Gayle will be updated.
[2025-01-22] VITALS (9 sets, daily range): BP systolic 131–150; BP diastolic 68–94; PULSE 38–103; RESP 15–24; TEMP 36.2–36.4; O2SAT 92–99; BMI 37.9
[2025-01-22] MEDS: ACETAMINOPHEN 325 MG TABLET 650 MG PO (02:38)
--- NOTE | 2025-01-22 03:14 | XR_ITS ---
Examination: AP chest single view TECHNIQUE: AP portable upright chest single view Date and time: January 22, 2025 at 0343 hours INDICATIONS: Difficulty breathing this week, post orogastric tube placement FINDINGS: Orogastric tube proximal stomach Mildly large cardiac contour with moderate vascular congestion Moderate osteopenia IMPRESSION: Advance the orogastric tube 5 cm
--- NOTE | 2025-01-22 03:51 | PC.NURSE ---
NG tube in, waiting for xr results to confirm placement. Okay to put in NG tube per Dr. Gayle, Dr. Gayle spoke to pt's over the phone on 01/21/[address] Gayle, pt's agreed to it.
[2025-01-22] MEDS: PREGABALIN 50 MG CAPSULE PO ×2 (05:51→21:01)
--- NOTE | 2025-01-22 06:09 | PC.NURSE ---
X-ray results to confirm NG tbe placement not available, called Dr. Guillermo to ask if he could check placement so i could start the golytely but he stated that since it is not an emergency, we should wait for Dr. Hi to read it.
[2025-01-22 06:17] LABS: Basophils # (Auto) 0.1 Thou/mm3 (0.0-0.2); Basophils % (Auto) 1 % (0-2.5); Eosinophils # (Auto) 0.3 Thou/mm3 (0.0-0.5); Eosinophils % (Auto) 2 % (0-10); Hematocrit 29.4 % (41.0-53.0); Hemoglobin 9.7 g/dL (13.5-16.0); Immature Granulocytes % (Auto) 1 % (0-0); Immature Granulocytes Auto 0.06 Thou/mm3 (0.00-0.00); Lymphocytes # (Auto) 1.5 Thou/mm3 (1.0-4.8); Lymphocytes % (Auto) 11 % (10-50); Mean Corpuscular Hemoglobin 29.8 pg (25.0-35.0); Mean Corpuscular Volume 91 fL (80-100); Monocytes # (Auto) 1.5 Thou/mm3 (0.0-0.8); Monocytes % (Auto) 11 % (0-12); Neutrophils # (Auto) 9.8 Thou/mm3 (1.8-7.7); Neutrophils % (Auto) 75 % (37-80); Nucleated Red Blood Cell % 0 /100 WBC (0); Platelet Count 331 Thou/mm3 (140-440); RDW Standard Deviation 45.7 fL (35.1-43.9); Red Blood Count 3.25 Miln/mm3 (4.50-5.90); White Blood Count 13.1 Thou/mm3 (3.8-10.6)
[2025-01-22 06:47] LABS: Alanine Aminotransferase 11 U/L (10-49); Albumin, Serum 4.1 gm/dL (3.4-4.8); Alkaline Phosphatase 74 U/L (46-116); Anion Gap 10 (7-16); Aspartate Amino Transferase 14 U/L (0-34); BUN/Creatinine Ratio 18 Ratio (12-20); Bilirubin,Total 0.7 mg/dL (0.3-1.2); Blood Urea Nitrogen 21 mg/dL (9-23); Calcium 8.5 mg/dL (8.3-10.6); Calcium (Corrected) 8.5 mg/dL (8.5-10.1); Carbon Dioxide 26.7 mMol/L (20.0-31.0); Chloride 100 mMol/L (98-107); Creatinine (Component) 1.2 mg/dL (0.6-1.3); Estimated Creatinine Clearance 47.3 mL/min (>60); Globulin 2.1 gm/dL (2.3-3.5); Glucose 146 mg/dL (74-106); Magnesium 2.1 mg/dL (1.6-2.6); Osmolality,Calculated 279 (275-295); Potassium 4.1 mMol/L (3.4-5.1); Sodium 137 mMol/L (136-145); Total Protein 6.2 gm/dL (5.7-8.2); eGFR 59 See Note
[2025-01-22] MEDS: INSULIN LISPRO (AdmeLOG) 1 UNIT/0.01 ML UNIT SC (07:42)
[2025-01-22] MEDS: APIXABAN 2.5 MG TABLET PO ×2 (08:25→20:43)
[2025-01-22] MEDS: PANTOPRAZOLE INJ 40 MG VIAL IV ×2 (08:25→20:43)
[2025-01-22] MEDS: TAMSULOSIN HCL 0.4 MG CAPSULE PO (08:25)
[2025-01-22] MEDS: FINASTERIDE 5 MG TABLET PO (08:25)
[2025-01-22] MEDS: COLCHICINE 0.6 MG TABLET PO (08:25)
[2025-01-22] MEDS: ALBUTEROL/IPRATROPIUM (Duoneb) RT SOL 3 ML NEBU INH (08:39)
[2025-01-22] MEDS: BUDESONIDE RT 0.25 MG/2 ML NEBU INH (08:40)
--- NOTE | 2025-01-22 08:44 | XR_ITS ---
Examination: AP chest single view Technique one AP portable sitting chest single view Exam date and time: 04/24/2025 0851 hours Comparison January 22, 2025 FINDINGS: Reposition orogastric tube FINDINGS: Orogastric tube tip in the body of the stomach satisfactory position CABG Mild prominence left ventricle Moderate vascular congestion IMPRESSION: Orogastric tube satisfactory position
--- NOTE | 2025-01-22 10:10 | XR_ITS ---
Examination: Abdomen AP single view Technique: AP portable supine abdomen, single view Exam date and time: January 22, 2025 1014 hours INDICATIONS: Abdominal distention today. FINDINGS: Moderate air and stool throughout the colon Mild small bowel ileus No free air Orogastric tube tip distal stomach IMPRESSION: Mild small bowel ileus
--- NOTE | 2025-01-22 14:49 | ESPR_ITS ---
<Statement entered by Laurie Kapadia MD - 01/22/25 17:52> Patient seen and examined at bedside. No acute overnight events reported. Patient states that his foot pain has improved but head filter tank tender helper to palpation. Patient will continue to be on colchicine. EGD was performed yesterday and showed no signs of bleeding, and was started on GoLytely yesterday, for colonoscopy today to find further reasons for bleeding if any. Patient also noted to have some more distention than on admission, and KUB was done which showed mild small bowel ileus, however patient is having active bowel movements. I discussed with and supervised the international editorial producer physician who took care of this patient. I personally saw and examined the patient and discussed the assessment and plan with the entire medicine team, including my attending Dr. Cordero, I agree with most of the assessment and plan as documented below Laurie Kapadia M.D. PGY-2 Disclaimer: Despite multiple revisions, due to the dictation software being used, the document bellow may not be free of grammatical errors including phonetic/typographic errors. However, this does not deter from our commitment to providing health care in the patient's best interest in mind. Documentation for date of: 01/22/25 Subjective Subjective Interval history: Patient was seen and examined at bedside this morning. No acute overnight events. Patient had EGD done yesterday and no source of bleeding was identifiable therefore patient will undergo colonoscopy today. Patient's foot pain has improved, but head filter tank tender helper to light palpation. He did have some more abdominal distention noted. No other complaints at this time. Exam Vital Signs Temp Pulse Resp BP Pulse Ox O2 Del Method O2 Flow Rate 97.4 F 93 18 143/84 H 95 Nasal Cannula 2 01/22/25 12:00 01/22/25 12:00 01/22/25 12:00 01/22/25 12:00 01/22/25 12:00 01/22/25 12:01/22/25 12:00 Narrative Exam General: A/O x2 (not to time), no acute distress Eyes: PERRL, EOMI. Anicteric, vision grossly intact. Ears: No ear pain, no ear discharge, Hearing mildly impaired. Nose: No nasal discharge. Mouth/Throat: Moist mucous membranes, no redness, no lesions. Neck: Neck supple, non-tender, no cervical lymphadenopathy. Lungs: Upper airway congestion audible, but clear breath sounds throughout, No accessory muscle use. Cardio: Normal S1/S2, regular rhythm, no murmurs, no JVD Abdomen: Soft, non-tender but distended, no palpable masses, peristalsis present, no guarding or rebound. Extremities: Symmetrical, no significant deformities, 1+ peripheral edema , R label fuser tender, peripheral pulses presents. Skin: No rashes, no lesions, warm to touch. Neuro: No focal neurological deficits. motor and sensory intact. Objective Labs 01/23/25 05:24 01/23/25 05:24 Labs: Laboratory Results - last 24 hr 01/22/25 04:58 WBC 13.1 H RBC 3.25 L Hgb 9.7 L Hct 29.4 L MCV 91 MCH 29.8 MCHC 33.0 RDW Std Deviation 45.7 H Plt Count 331 Neut % (Auto) 75 Lymph % (Auto) 11 [place] % (Auto) 11 Eos % (Auto) 2 Baso % (Auto) 1 Neut # (Auto) 9.8 H Lymph # (Auto) 1.5 [place] # (Auto) 1.5 H Eos # (Auto) 0.3 Baso # (Auto) 0.1 Immature Gran # (Auto) 0.06 H Absolute Nucleated RBC 0.00 Immature Gran % 1 H Nucleated RBC % 0 Sodium 137 Potassium 4.1 Chloride 100 Carbon Dioxide 26.7 Anion Gap 10 BUN 21 Creatinine 1.2 Estim Creat Clear Calc 47.3 L eGFR 59 L BUN/Creatinine Ratio 18 Glucose 146 H Calculated Osmolality 279 Calcium 8.5 Corrected Calcium 8.5 Magnesium 2.1 Total Bilirubin 0.7 AST 14 ALT 11 Alkaline Phosphatase 74 Total Protein 6.2 Albumin 4.1 Globulin 2.1 L Albumin/Globulin Ratio 2.0 ABG Interpretation ABG results: 01/20/25 11:30 ABG pH 7.44 ABG pCO2 36 ABG pO2 99 ABG HCO3 24 ABG O2 Saturation 99 H ABG Base Excess 0 Quality Measures Quality Measures none Advance care planning discussed with:: patient Assessment & Plan Assessment Current Active Medications: Generic Name Dose Route Start Last Admin Trade Name Freq PRN Reason Stop Dose Admin Acetaminophen 650 mg 01/20/25 15:41 01/22/25 02:38 Acetaminophen 325 Mg Tablet PO 02/19/25 15:40 650 mg Q6H PRN Administration Fever >100.3 or Pain 1-3 Albuterol/Ipratropium 3 ml 01/20/25 17:24 01/22/25 08:39 Albuterol/Ipratropium (Duoneb) Rt Joselyn 3 Ml Nebu INH 02/19/25 17:23 3 ml Q4HR PRN Administration SHORTNESS OF BREATH OR WHEEZE Protocol Apixaban 2.5 mg 01/20/25 21:00 01/22/25 08:25 Apixaban 2.5 Mg Tablet PO 02/19/25 20:59 2.5 mg BID WALDEMAR Administration Atorvastatin Calcium 20 mg 01/20/25 21:00 01/21/25 21:07 Atorvastatin Calcium 20 Mg Tablet PO 02/19/25 20:59 20 mg HS WALDEMAR Administration Budesonide 0.25 mg 01/20/25 16:54 01/22/25 08:40 Budesonide Rt 0.25 Mg/2 Ml Nebu INH 02/19/25 18:59 0.25 mg BIDRT PRN Administration SHORTNESS OF BREATH Protocol Colchicine 0.6 mg 01/21/25 15:45 01/22/25 08:25 Colchicine 0.6 Mg Tablet PO 02/20/25 15:44 0.6 mg QDAY WALDEMAR Administration Dextrose 25 ml 01/20/25 16:28 Dextrose 50%-Water Inj 50 Ml Syringe IV 02/19/25 16:27 Q15MIN PRN BG 50-70 responsive npo pt Dextrose 50 ml 01/20/25 16:28 Dextrose 50%-Water Inj 50 Ml Syringe IV 02/19/25 16:27 Q15MIN PRN BG <50 OR BG <70 & pt unresponsive Donepezil HCl 10 mg 01/20/25 21:00 01/21/25 21:08 Donepezil Hcl 5 Mg Tablet PO 02/19/25 20:59 10 mg HS WALDEMAR Administration Finasteride 5 mg 01/21/25 09:00 01/22/25 08:25 Finasteride 5 Mg Tablet PO 02/20/25 08:59 5 mg QDAY WALDEMAR Administration Glucagon 1 mg 01/20/25 16:28 Glucagon Inj 1 Mg Vial IM Q15MIN PRN BG <70, and no IV access Insulin Human Lispro 0 unit 01/20/25 17:00 01/22/25 11:27 Insulin Lispro (Admelog) 1 Unit/0.01 Ml Unit SC 02/19/25 16:59 Not Given [facility] Protocol Metoclopramide HCl 10 mg 01/20/25 15:41 Metoclopramide 5 Mg Tablet PO 02/19/25 15:40 Q6H PRN NAUSEA OR VOMITING Pantoprazole Sodium 40 mg 01/21/25 04:00 01/22/25 08:25 Pantoprazole Inj 40 Mg Vial IV 02/20/25 03:59 40 mg BID WALDEMAR Administration Pregabalin 50 mg 01/21/25 22:00 01/22/25 05:51 Pregabalin 50 Mg Capsule PO 02/20/25 21:59 50 mg TID WALDEMAR Administration Tamsulosin HCl 0.4 mg 01/21/25 09:00 01/22/25 08:25 Tamsulosin Hcl 0.4 Mg Capsule PO 02/20/25 08:59 0.4 mg QDAY WALDEMAR Administration Plan 84-year-old male with past medical history significant for chronic A-fib on Eliquis, CAD status post CABG, CHF, [id number] type 2 diabetes, BPH, melanoma, hearing loss, dementia, history of stroke in 2021, right retinal tear surgery, and gout admitted for presyncope likely secondary to GI bleed. #Presyncope likely secondary to # Possible GI bleed Patient initially presented with episode of presyncope after eating breakfast . Patient was staring up into the [place]ley for about 15 minutes and for gaining consciousness. Most likely upper GI bleed vs. lower GI bleed. Pt presented with low hemoglobin count of 7.3, baseline is around 12 FOBT positive 2 units of PRBC given throughout hospital stay EGD did not showed source of bleeding Plan: - Golytely - Protonix -Consulted GI, appreciate reccomendations -Penidng colonoscopy -Daily CBC to monitor Hgb -Started on Protonix IV 40mg twice daily #Gout flare #Hx of gout Patient was having excrutiation pain for which he was started on colchicine 1.2 mg x1 followed by 0.6mg maintenance dose Uric acid 9.2 Better controlled today Plan: -Continue Colchicine 0.6mg until pain has resolved -Will continue to monitor #ALEXEI, improving Cr on presentation was 1.6. Baseline is 1.3. Likely pre-renal due to possible dehydration vs diuretic use Cr today 1.2 Plan: -Avoid nephrotoxin agents -Renally dose medications -Continue to monitor signs and symptoms #Acute decompensated Heart Failure Exacerbation #HFpEF (55% 01/2025) #CAD s/p CABG #History of CVA in 2021 BNP mildly elevated at 211. Patient chronically takes Bumex, ASA Echocardiogram showed normal ejection fraction of 55%, normal LV size and function and RV normal with mildly elevated LA, mitral and tricuspid regurg. Plan: -Will hold ASA in the setting of possible active GI bleed -Will resume patient's dose equivalent home simvastatin -Fluid restriction 1500ml -Strict I's/O's -daily weights #Chronic atrial fibrillation Kristian Vascor is 7. Patient is chronically on Eliquis 5 mg twice daily EKG on admission showed A-fib with slow ventricular rate Plan: - Continue Eliquis dose to 2.5 mg twice daily to reflect current creatinine level and age - Will resume Diltiazem 120 ER when patient's HR/BP can tolerate #Type 2 diabetes not on chronic insulin therapy #Diabetic neuropathy Last A1c was 6.2% - Hypoglycemic protocol in place - ISS - Continue regabalin 50 mg 3 times daily #BPH -Continue patient's home tamsulosin and finasteride #Dementia-stable - Continue home Donepezil Disposition: Pending colonoscopy. Diet: Clear liquid GI prophylaxis: protonix DVT prophylaxis: Eliquis Code:Limited code, chest compressions are okay for 5 to 10 minutes, DNI Case disclosed with Attending Dr. Cordero and My senior Dr. Kapadia PGY2. Rip Luis PGY1 Attending Provider Attestation/Addendum I have discussed and was present for the essential components of the history, physical examination, diagnosis, and treatment plan with the resident. I agree with the patient's care as documented by the resident and amended herein by me. Stefan Cordero DO. Although this document has been carefully reviewed, there may still be some phonetic and other typographical errors. These errors are purely grammatical due to imperfections in the software program and should not be construed in any way to compromise the substance of the patient's medical care during this visit.
[2025-01-22] MEDS: NA SU/NAHCO3/KC/PEG (Golytely) 4,000 ML BTL 4000 ML PO (16:51)
[2025-01-22] MEDS: ATORVASTATIN CALCIUM 20 MG TABLET PO (20:43)
[2025-01-22] MEDS: DONEPEZIL HCL 5 MG TABLET 10 MG PO (20:43)
--- NOTE | 2025-01-22 21:35 | ESPR_ITS ---
Documentation for date of: 01/22/25 Subjective Subjective Interval history: GoLytely prep in progress as patient was not clear and the colonoscopy was canceled for today Exam Vital Signs Temp Pulse Resp BP Pulse Ox O2 Del Method O2 Flow Rate 97.6 F 94 15 150/94 H 94 L Nasal Cannula 2 01/22/25 20:00 01/22/25 20:00 01/22/25 20:00 01/22/25 20:00 01/22/25 20:00 01/22/25 20:00 01/22/25 20:00 Objective Labs 01/22/25 04:58 01/22/25 04:58 Labs: Laboratory Results - last 24 hr 01/22/25 04:58 WBC 13.1 H RBC 3.25 L Hgb 9.7 L Hct 29.4 L MCV 91 MCH 29.8 MCHC 33.0 RDW Std Deviation 45.7 H Plt Count 331 Neut % (Auto) 75 Lymph % (Auto) 11 [place] % (Auto) 11 Eos % (Auto) 2 Baso % (Auto) 1 Neut # (Auto) 9.8 H Lymph # (Auto) 1.5 [place] # (Auto) 1.5 H Eos # (Auto) 0.3 Baso # (Auto) 0.1 Immature Gran # (Auto) 0.06 H Absolute Nucleated RBC 0.00 Immature Gran % 1 H Nucleated RBC % 0 Sodium 137 Potassium 4.1 Chloride 100 Carbon Dioxide 26.7 Anion Gap 10 BUN 21 Creatinine 1.2 Estim Creat Clear Calc 47.3 L eGFR 59 L BUN/Creatinine Ratio 18 Glucose 146 H Calculated Osmolality 279 Calcium 8.5 Corrected Calcium 8.5 Magnesium 2.1 Total Bilirubin 0.7 AST 14 ALT 11 Alkaline Phosphatase 74 Total Protein 6.2 Albumin 4.1 Globulin 2.1 L Albumin/Globulin Ratio 2.0 Impressions Impression: Posthemorrhagic anemia gastritis GoLytely prep to continue Colonoscopy a.m. ABG Interpretation ABG results: 01/20/25 11:30 ABG pH 7.44 ABG pCO2 36 ABG pO2 99 ABG HCO3 24 ABG O2 Saturation 99 H ABG Base Excess 0 Assessment & Plan A&P Narrative # Occult GI bleeding # Acute posthemorrhagic anemia Plan Case discussed with the internal medicine team in the ER team Patient will be given 2 units of PRBCs Clear liquid diet up until midnight tonight N.p.o. after midnight except p.o. meds Consent obtained for fiberoptic esophagogastroduodenoscopy with possible therapeutic intervention possible biopsy under intravenous moderate sedation If EGD is negative we will consider doing a fiberoptic colonoscopy prior to discharge as there is a significant drop in hemoglobin hematocrit which was 12.3 and 36.7 on 12/21/2024 Other medical problems include Chronic atrial fibrillation decrease the Eliquis to 2.5 mg p.o. twice daily but continue the as patient already had a stroke before and the risk of stroke again which is much higher Coronary artery disease status post CABG Congestive heart failure systolic BPH CVA 2021 History of melanoma Thank you very much for the opportunity to participate in the care of this patient Time Spent With Patient Time: Total time spent is greater than 50% in coordination of care (as documented) at patient's floor/unit and/or counseling patient:
[2025-01-23] VITALS (23 sets, daily range): BP systolic 91–151; BP diastolic 37–93; PULSE 75–107; RESP 14–24; TEMP 36–36.6; O2SAT 93–99; BMI 37.5; BMI 37.3
[2025-01-23] MEDS: PREGABALIN 50 MG CAPSULE PO ×3 (05:35→22:44)
[2025-01-23 05:54] LABS: Basophils # (Auto) 0.1 Thou/mm3 (0.0-0.2); Basophils % (Auto) 1 % (0-2.5); Eosinophils # (Auto) 0.3 Thou/mm3 (0.0-0.5); Eosinophils % (Auto) 2 % (0-10); Hematocrit 30.8 % (41.0-53.0); Immature Granulocytes % (Auto) 1 % (0-0); Immature Granulocytes Auto 0.07 Thou/mm3 (0.00-0.00); Lymphocytes # (Auto) 1.4 Thou/mm3 (1.0-4.8); Lymphocytes % (Auto) 11 % (10-50); Mean Corpuscular HGB Conc 32.5 g/dl (31.0-37.0); Mean Corpuscular Hemoglobin 29.2 pg (25.0-35.0); Mean Corpuscular Volume 90 fL (80-100); Monocytes # (Auto) 1.2 Thou/mm3 (0.0-0.8); Monocytes % (Auto) 9 % (0-12); Neutrophils # (Auto) 9.8 Thou/mm3 (1.8-7.7); Neutrophils % (Auto) 76 % (37-80); Nucleated Red Blood Cell % 0 /100 WBC (0); Platelet Count 320 Thou/mm3 (140-440); RDW Standard Deviation 44.8 fL (35.1-43.9); Red Blood Count 3.43 Miln/mm3 (4.50-5.90); White Blood Count 12.9 Thou/mm3 (3.8-10.6)
[2025-01-23 06:39] LABS: Alanine Aminotransferase 11 U/L (10-49); Albumin, Serum 3.9 gm/dL (3.4-4.8); Albumin/Globulin Ratio 1.8 (1.2-2.2); Alkaline Phosphatase 73 U/L (46-116); Anion Gap 11 (7-16); Aspartate Amino Transferase 14 U/L (0-34); BUN/Creatinine Ratio 14 Ratio (12-20); Bilirubin,Total 0.6 mg/dL (0.3-1.2); Blood Urea Nitrogen 15 mg/dL (9-23); Calcium 8.5 mg/dL (8.3-10.6); Calcium (Corrected) 8.6 mg/dL (8.5-10.1); Chloride 101 mMol/L (98-107); Creatinine (Component) 1.1 mg/dL (0.6-1.3); Estimated Creatinine Clearance 51.2 mL/min (>60); Globulin 2.2 gm/dL (2.3-3.5); Glucose 131 mg/dL (74-106); Magnesium 2.1 mg/dL (1.6-2.6); Osmolality,Calculated 280 (275-295); Potassium 4.1 mMol/L (3.4-5.1); Sodium 139 mMol/L (136-145); Total Protein 6.1 gm/dL (5.7-8.2); eGFR > 60 See Note
[2025-01-23] MEDS: COLCHICINE 0.6 MG TABLET PO (09:20)
[2025-01-23] MEDS: APIXABAN 2.5 MG TABLET PO ×2 (09:20→22:44)
[2025-01-23] MEDS: PANTOPRAZOLE INJ 40 MG VIAL IV ×2 (09:20→22:45)
[2025-01-23] MEDS: TAMSULOSIN HCL 0.4 MG CAPSULE PO (09:20)
[2025-01-23] MEDS: FINASTERIDE 5 MG TABLET PO (09:20)
[2025-01-23] MEDS: SODIUM CL RT SOL 3% 4 ML NEBU (NON-FORMULARY) INH (09:40)
[2025-01-23] MEDS: ALBUTEROL/IPRATROPIUM (Duoneb) RT SOL 3 ML NEBU INH (09:40)
--- NOTE | 2025-01-23 09:54 | XR_ITS ---
Examination: AP chest single view Technique one AP portable semiupright chest single view Exam date and time: January 24, 2020 5:10 AM Comparison January 22, 2025 INDICATIONS: Coughing congestion today. FINDINGS: Mild heart failure Mild enlargement cardiac contour Prominent vascular congestion with early septal edema at the lung bases Orogastric tube in stomach, the tip is below the level of the film IMPRESSION: Mild heart failure
--- NOTE | 2025-01-23 09:54 | PD.RESPRO ---
Documentation for date of: 01/23/25 Subjective Subjective Interval history: Patient was seen and examined at bedside this morning. No acute overnight events. Patient did not have completed admission because she was still not clear, but this morning was clear as per nurse. Patient has been complaining of some sore throat and some congestion today and he did have underlying upper airway congestion. Patient had no other was at this time stated that he really has foot pain is around the same as yesterday. Exam Vital Signs Temp Pulse Resp BP Pulse Ox O2 Del Method O2 Flow Rate 97.6 F 85 20 143/86 H 97 Nasal Cannula 1 01/23/25 08:00 01/23/25 09:42 01/23/25 09:42 01/23/25 08:00 01/23/25 09:42 01/23/25 08:00 01/23/25 09:42 Narrative Exam General: A/O x2 (not to time), no acute distress Eyes: PERRL, EOMI. Anicteric, vision grossly intact. Ears: No ear pain, no ear discharge, Hearing mildly impaired. Nose: No nasal discharge. Mouth/Throat: Moist mucous membranes, no redness, no lesions. Neck: Neck supple, non-tender, no cervical lymphadenopathy. Lungs: Upper airway congestion audible more prominent today, but clear breath sounds throughout, No accessory muscle use. Cardio: Normal S1/S2, regular rhythm, no murmurs, no JVD Abdomen: Soft, non-tender but distended, no palpable masses, peristalsis present, no guarding or rebound. Extremities: Symmetrical, no significant deformities, trace peripheral edema , R tubing machine tender but same as yesterday, peripheral pulses presents. Skin: No rashes, no lesions, warm to touch. Neuro: No focal neurological deficits. motor and sensory intact. Objective Labs 01/24/25 05:28 01/24/25 05:28 Labs: Laboratory Results - last 24 hr 01/23/25 05:24 WBC 12.9 H RBC 3.43 L Hgb 10.0 L Hct 30.8 L MCV 90 MCH 29.2 MCHC 32.5 RDW Std Deviation 44.8 H Plt Count 320 Neut % (Auto) 76 Lymph % (Auto) 11 [place] % (Auto) 9 Eos % (Auto) 2 Baso % (Auto) 1 Neut # (Auto) 9.8 H Lymph # (Auto) 1.4 [place] # (Auto) 1.2 H Eos # (Auto) 0.3 Baso # (Auto) 0.1 Immature Gran # (Auto) 0.07 H Absolute Nucleated RBC 0.00 Immature Gran % 1 H Nucleated RBC % 0 Sodium 139 Potassium 4.1 Chloride 101 Carbon Dioxide 27.0 Anion Gap 11 BUN 15 Creatinine 1.1 Estim Creat Clear Calc 51.2 L eGFR > 60 BUN/Creatinine Ratio 14 Glucose 131 H Calculated Osmolality 280 Calcium 8.5 Corrected Calcium 8.6 Magnesium 2.1 Total Bilirubin 0.6 AST 14 ALT 11 Alkaline Phosphatase 73 Total Protein 6.1 Albumin 3.9 Globulin 2.2 L Albumin/Globulin Ratio 1.8 ABG Interpretation ABG results: 01/20/25 11:30 ABG pH 7.44 ABG pCO2 36 ABG pO2 99 ABG HCO3 24 ABG O2 Saturation 99 H ABG Base Excess 0 Quality Measures Quality Measures none Advance care planning discussed with:: patient Assessment & Plan Assessment Current Active Medications: Generic Name Dose Route Start Last Admin Trade Name Freq PRN Reason Stop Dose Admin Acetaminophen 650 mg 01/20/25 15:41 01/22/25 02:38 Acetaminophen 325 Mg Tablet PO 02/19/25 15:40 650 mg Q6H PRN Administration Fever >100.3 or Pain 1-3 Albuterol/Ipratropium 3 ml 01/20/25 17:24 01/23/25 09:40 Albuterol/Ipratropium (Duoneb) Rt Joselyn 3 Ml Nebu INH 02/19/25 17:23 3 ml Q4HR PRN Administration SHORTNESS OF BREATH OR WHEEZE Protocol Apixaban 2.5 mg 01/20/25 21:00 01/23/25 09:20 Apixaban 2.5 Mg Tablet PO 02/19/25 20:59 2.5 mg BID WALDEMAR Administration Atorvastatin Calcium 20 mg 01/20/25 21:00 01/22/25 20:43 Atorvastatin Calcium 20 Mg Tablet PO 02/19/25 20:59 20 mg HS WALDEMAR Administration Budesonide 0.25 mg 01/20/25 16:54 01/22/25 08:40 Budesonide Rt 0.25 Mg/2 Ml Nebu INH 02/19/25 18:59 0.25 mg BIDRT PRN Administration SHORTNESS OF BREATH Protocol Colchicine 0.6 mg 01/21/25 15:45 01/23/25 09:20 Colchicine 0.6 Mg Tablet PO 02/20/25 15:44 0.6 mg QDAY WALDEMAR Administration Dextrose 25 ml 01/20/25 16:28 Dextrose 50%-Water Inj 50 Ml Syringe IV 02/19/25 16:27 Q15MIN PRN BG 50-70 responsive npo pt Dextrose 50 ml 01/20/25 16:28 Dextrose 50%-Water Inj 50 Ml Syringe IV 02/19/25 16:27 Q15MIN PRN BG <50 OR BG <70 & pt unresponsive Donepezil HCl 10 mg 01/20/25 21:00 01/22/25 20:43 Donepezil Hcl 5 Mg Tablet PO 02/19/25 20:59 10 mg HS WALDEMAR Administration Finasteride 5 mg 01/21/25 09:00 01/23/25 09:20 Finasteride 5 Mg Tablet PO 02/20/25 08:59 5 mg QDAY WALDEMAR Administration Glucagon 1 mg 01/20/25 16:28 Glucagon Inj 1 Mg Vial IM Q15MIN PRN BG <70, and no IV access Insulin Human Lispro 0 unit 01/20/25 17:00 01/23/25 08:02 Insulin Lispro (Admelog) 1 Unit/0.01 Ml Unit SC 02/19/25 16:59 Not Given AC [facility] Protocol Metoclopramide HCl 10 mg 01/20/25 15:41 Metoclopramide 5 Mg Tablet PO 02/19/25 15:40 Q6H PRN NAUSEA OR VOMITING Pantoprazole Sodium 40 mg 01/21/25 04:00 01/23/25 09:20 Pantoprazole Inj 40 Mg Vial IV 02/20/25 03:59 40 mg BID WALDEMAR Administration Pregabalin 50 mg 01/21/25 22:00 01/23/25 05:35 Pregabalin 50 Mg Capsule PO 02/20/25 21:59 50 mg TID WALDEMAR Administration Tamsulosin HCl 0.4 mg 01/21/25 09:00 01/23/25 09:20 Tamsulosin Hcl 0.4 Mg Capsule PO 02/20/25 08:59 0.4 mg QDAY WALDEMAR Administration Plan 84-year-old male with past medical history significant for chronic A-fib on Eliquis, CAD status post CABG, CHF, [id number] type 2 diabetes, BPH, melanoma, hearing loss, dementia, history of stroke in 2021, right retinal tear surgery, and gout admitted for presyncope likely secondary to GI bleed. #Presyncope likely secondary to # Possible GI bleed Patient initially presented with episode of presyncope after eating breakfast . Patient was staring up into the [place] for about 15 minutes and for gaining consciousness. Most likely upper GI bleed vs. lower GI bleed. Pt presented with low hemoglobin count of 7.3, baseline is around 12 FOBT positive 2 units of PRBC given throughout hospital stay EGD did not showed source of bleeding Colonoscopy canceled yesterday due to not being clear Plan: - Golytely - Protonix -Consulted GI, appreciate reccomendations -Penidng colonoscopy -Daily CBC to monitor Hgb -Started on Protonix IV 40mg twice daily #Gout flare #Hx of gout Patient was having excrutiation pain for which he was started on colchicine 1.2 mg x1 followed by 0.6mg maintenance dose Uric acid 9.2 Stable Plan: -Continue Colchicine 0.6mg until pain has resolved -Will continue to monitor #ALEXEI, resolved Cr on presentation was 1.6. Baseline is 1.3. Likely pre-renal due to possible dehydration vs diuretic use Cr today 1.1 Plan: -Avoid nephrotoxin agents -Renally dose medications -Continue to monitor signs and symptoms #Acute decompensated Heart Failure Exacerbation #HFpEF (55% 01/2025) #CAD s/p CABG #History of CVA in 2021 BNP mildly elevated at 211. Patient chronically takes Bumex, ASA Echocardiogram showed normal ejection fraction of 55%, normal LV size and function and RV normal with mildly elevated LA, mitral and tricuspid regurg. Plan: -Will hold ASA in the setting of possible active GI bleed -Will resume patient's dose equivalent home simvastatin -Fluid restriction 1500ml -Strict I's/O's -daily weights #Chronic atrial fibrillation Kristian Vascor is 7. Patient is chronically on Eliquis 5 mg twice daily EKG on admission showed A-fib with slow ventricular rate Plan: - Continue Eliquis dose to 2.5 mg twice daily to reflect current creatinine level and age - Will resume Diltiazem 120 ER when patient's HR/BP can tolerate #Type 2 diabetes not on chronic insulin therapy #Diabetic neuropathy Last A1c was 6.2% - Hypoglycemic protocol in place - ISS - Continue pregabalin 50 mg 3 times daily #BPH -Continue patient's home tamsulosin and finasteride #Dementia-stable - Continue home Donepezil Disposition: Pending colonoscopy. Diet: Clear liquid GI prophylaxis: protonix DVT prophylaxis: Eliquis Code:Limited code, chest compressions are okay for 5 to 10 minutes, DNI Case disclosed with Attending Dr. Liset Luis PGY1 Attending Provider Attestation/Addendum I reviewed labs, imaging, EKG, home medications and prior available records. Face to face evaluation was performed by me. I have personally examined the patient and discussed assessment and plan with the IM team. I reviewed the resident note and agree with the plan with exceptions as below. GI bleed Presyncope HFpEF EF 55% Atrial fibrillation with controlled ventricular rhythm ALEXEI on CKD CAD Status post EGD that showed no source of bleeding. Plan for colonoscopy Discussed with GI: Okay to resume Eliquis Plan for colonoscopy
[2025-01-23] MEDS: BENZOCAINE/MENTHOL 1 LOZENGE PO (13:38)
--- NOTE | 2025-01-23 15:33 | PC.SS ---
Rounding note: planned colonoscopy today.
--- NOTE | 2025-01-23 21:47 | SUR.PHASEI ---
2145 patient arrived to recovery resting comfortably in [facility], able to arouse with verbal promptly, on oxygen 3L via nasal cannula, breathing unlabored, vital signs stable, denies pain and nausea
--- NOTE | 2025-01-23 22:18 | SUR.PHASEI ---
drinking water tolerating well
--- NOTE | 2025-01-23 22:22 | SUR.PHASEI ---
2220 Report given to Mariela IRVING, patient meets discharge criteria from recovery, awake and alert, breathing unlabored, vital signs stable, denies pain and nausea, taking small sips of water 2222 Patient transported via gurney to room 271 without incident
--- NOTE | 2025-01-23 22:30 | PC.NURSE ---
patient is back in room from endo, patient vital signs stable, patient is alert and in no respiratory distress, respirations equal and unlabored.
[2025-01-23] MEDS: ATORVASTATIN CALCIUM 20 MG TABLET PO (22:43)
[2025-01-23] MEDS: DONEPEZIL HCL 5 MG TABLET 10 MG PO (22:44)
[2025-01-24] VITALS (10 sets, daily range): BP systolic 119–143; BP diastolic 56–92; PULSE 77–105; RESP 15–25; TEMP 36–36.9; O2SAT 95–99; BMI 36.0
[2025-01-24] MEDS: PREGABALIN 50 MG CAPSULE PO ×3 (05:30→21:33)
[2025-01-24 06:16] LABS: Basophils # (Auto) 0.1 Thou/mm3 (0.0-0.2); Basophils % (Auto) 1 % (0-2.5); Eosinophils # (Auto) 0.3 Thou/mm3 (0.0-0.5); Eosinophils % (Auto) 3 % (0-10); Hematocrit 29.5 % (41.0-53.0); Hemoglobin 9.6 g/dL (13.5-16.0); Immature Granulocytes % (Auto) 0 % (0-0); Immature Granulocytes Auto 0.01 Thou/mm3 (0.00-0.00); Lymphocytes # (Auto) 1.7 Thou/mm3 (1.0-4.8); Lymphocytes % (Auto) 19 % (10-50); Mean Corpuscular HGB Conc 32.5 g/dl (31.0-37.0); Mean Corpuscular Hemoglobin 29.4 pg (25.0-35.0); Mean Corpuscular Volume 91 fL (80-100); Monocytes # (Auto) 0.9 Thou/mm3 (0.0-0.8); Monocytes % (Auto) 10 % (0-12); Neutrophils # (Auto) 6.1 Thou/mm3 (1.8-7.7); Neutrophils % (Auto) 67 % (37-80); Nucleated Red Blood Cell % 0 /100 WBC (0); Platelet Count 315 Thou/mm3 (140-440); RDW Standard Deviation 44.2 fL (35.1-43.9); Red Blood Count 3.26 Miln/mm3 (4.50-5.90)
[2025-01-24 06:38] LABS: Alanine Aminotransferase 8 U/L (10-49); Albumin, Serum 3.6 gm/dL (3.4-4.8); Albumin/Globulin Ratio 1.7 (1.2-2.2); Alkaline Phosphatase 65 U/L (46-116); Anion Gap 11 (7-16); Aspartate Amino Transferase 12 U/L (0-34); BUN/Creatinine Ratio 14 Ratio (12-20); Bilirubin,Total 0.5 mg/dL (0.3-1.2); Blood Urea Nitrogen 13 mg/dL (9-23); Calcium 8.5 mg/dL (8.3-10.6); Calcium (Corrected) 8.8 mg/dL (8.5-10.1); Carbon Dioxide 26.7 mMol/L (20.0-31.0); Chloride 103 mMol/L (98-107); Creatinine (Component) 0.9 mg/dL (0.6-1.3); Estimated Creatinine Clearance 61.5 mL/min (>60); Globulin 2.1 gm/dL (2.3-3.5); Glucose 96 mg/dL (74-106); Osmolality,Calculated 281 (275-295); Potassium 3.7 mMol/L (3.4-5.1); Sodium 141 mMol/L (136-145); Total Protein 5.7 gm/dL (5.7-8.2); eGFR > 60 See Note
[2025-01-24] MEDS: APIXABAN 2.5 MG TABLET PO ×2 (09:06→20:53)
[2025-01-24] MEDS: COLCHICINE 0.6 MG TABLET PO (09:06)
[2025-01-24] MEDS: TAMSULOSIN HCL 0.4 MG CAPSULE PO (09:06)
[2025-01-24] MEDS: PANTOPRAZOLE INJ 40 MG VIAL IV (09:06)
[2025-01-24] MEDS: FINASTERIDE 5 MG TABLET PO (09:07)
[2025-01-24] MEDS: POTASSIUM CHLORIDE 20 mEq TABCR PO (10:34)
[2025-01-24] MEDS: ALBUTEROL/IPRATROPIUM (Duoneb) RT SOL 3 ML NEBU INH (10:39)
--- NOTE | 2025-01-24 10:57 | PD.RESDS ---
Planned Discharge Date 01/24/25 DS: Providers Provider Date of admission: 01/20/25 15:41 Primary care physician: Physician No Primary/Family Admitting Provider: Richie Cordero DO Attending Provider on Admission: Wale Hutchins MD Consults: 01/20/25 12:59 Consult to Gastroenterology Stat Comment: Consulting Provider: Elisabeth Gayle Attending Provider on DC: Wale Hutchins MD Discharging Provider: Wale Hutchins MD DS: Diagnosis Problem List Completed Was Problem List Reviewed/Reconciled?: Yes Hospital Course Hospital Course Hospital course: 84-year-old male with past medical history significant for chronic A-fib on Eliquis, CAD status post CABG, CHF, [id number] type 2 diabetes, BPH, melanoma, hearing loss, dementia, history of stroke in 2021, right retinal tear surgery, and gout admitted for presyncope likely secondary to GI bleed. Patient initially came in afebrile and mildly hypertensive. Initially his hemoglobin was 7.3 from his baseline around 12.3. Patient was transfused 2 units of PRBC throughout the hospital stay and his hemoglobin remained stable since then in the range of around 10-9. Patient had a positive fecal occult blood therefore GI was consulted and did EGD which did not show any identifiable source of bleeding therefore colonoscopy was also done to rule out any lower GI bleed. The colonoscopy revealed diverticulosis, but no bleeding. Patient had an echocardiogram done also during the hospital stay that showed an EF of 55%. The patient also developed acute gout flareup in which his uric acid was around 9.2 therefore he was started on colchicine which has significantly improved the patient's gout flareup and pain. Patient remained stable throughout the hospital stay and at the time of discharge he was stable enough to be discharged home. Discharge plan: Please follow-up with your primary care physician within 1 week upon discharge Please continue taking colchicine 0.6 mg daily and to follow-up with primary care physician to see if pain has subsided then it can be discontinued. Please follow-up with primary care physician to possibly refer you to a GI specialist for possible capsule endoscopy to see if source of bleeding can be identified. Please continue taking all home medications as prescribed We held your night time 1mg bumetadine and continued your 2mg bumetadine daily Please come back to the ER if symptoms persist or worsen. Problem list: #Presyncope #Diverticulosis #Gout flareup #ALEXEI, resolved #Acute decompensated Heart Failure Exacerbation #HFpEF (55% 01/2025) #CAD s/p CABG #History of CVA in 2021 #Chronic atrial fibrillation #Type 2 diabetes not on chronic insulin therapy #Diabetic neuropathy #Dementia-stable #BPH Case disclosed with Attending Dr. Liset Luis PGY1 Disclaimer: This note was dictated by speech recognition and even though it was carefully revised there may still be minor errors in head of physics due to voice recognition software. Status at Discharge Overall status at discharge: patient is progressing back to baseline Time Spent with Patient Time attestation: Total time spent providing and/or coordinating discharge services:>35 min Time spent: Greater than 30 minutes Exam Vital Signs Temp Pulse Resp BP Pulse Ox O2 Del Method O2 Flow Rate 97.4 F 94 25 H 132/62 H 96 Nasal Cannula 1 01/24/25 08:00 01/24/25 10:41 01/24/25 10:41 01/24/25 08:00 01/24/25 10:41 01/24/25 08:00 01/24/25 10:41 Narrative Exam General: A/O x2 (not to time), no acute distress Eyes: PERRL, EOMI. Anicteric, vision grossly intact. Ears: No ear pain, no ear discharge, Hearing mildly impaired. Nose: No nasal discharge. Mouth/Throat: Moist mucous membranes, no redness, no lesions. Neck: Neck supple, non-tender, no cervical lymphadenopathy. Lungs: Upper airway congestion improved, clear breath sounds throughout, No accessory muscle use. Cardio: Normal S1/S2, regular rhythm, no murmurs, no JVD Abdomen: Soft, non-tender but distended, no palpable masses, peristalsis present, no guarding or rebound. Extremities: Symmetrical, no significant deformities, no peripheral edema , R foot mildly tender, improving , peripheral pulses presents. Skin: No rashes, no lesions, warm to touch. Neuro: No focal neurological deficits. motor and sensory intact. Discharge Plan Plan Patient Disposition: HOME (Self Care) Care Plan Goals: Please follow-up with your primary care physician within 1 week upon discharge Please continue taking colchicine 0.6 mg daily and to follow-up with primary care physician to see if pain has subsided then it can be discontinued. Please follow-up with primary care physician to possibly refer you to a GI specialist for possible capsule endoscopy to see if source of bleeding can be identified. Please continue taking all home medications as prescribed We held your night time 1mg bumetadine and continued your 2mg bumetadine daily Please come back to the ER if symptoms persist or worsen. Prescriptions/Referrals Prescriptions/Med Rec: New tamsulosin 0.4 mg Capsule 0.4 mg PO QDAY 30 Days Qty: 30 0RF colchicine 0.6 mg Tablet 0.6 mg PO QDAY 7 Days Qty: 7 0RF Continued simvastatin [Zocor] 40 MG tablet 40 mg PO HS Qty: 0 finasteride [Proscar] 5 MG tablet 5 mg PO QDAY Qty: 0 Spiriva Respimat 2.5 mcg/actuation Mist 2 puff INHALATION QDAY Qty: 0 budesonide [Pulmicort] 1 mg/2 mL Suspension For Nebulization 2 ml INHALATION BID PRN (Reason: sob) spironolactone 50 mg tablet 50 mg PO QDAY Eliquis 5 mg tablet 5 mg PO BID bumetanide 2 MG tablet 2 mg PO DAILY albuterol sulfate [ProAir HFA] 90 mcg/actuation HFA aerosol inhaler 1 - 2 puff INHALATION Q4H PRN (Reason: sob) aspirin 81 mg capsule 81 mg PO QDAY Qty: 30 0RF gabapentin 100 mg capsule 200 mg PO Q12H metformin 500 mg tablet 500 mg PO BID diltiazem HCl 120 mg capsule,extended release 24hr 120 mg PO DAILY Linzess 72 mcg capsule 72 mcg PO QAM donepezil 10 mg tablet 5 mg PO DAILY Ozempic 1 mg/dose (4 mg/3 mL) pen injector 1 mg SUBCUT .QWEEKLY Rx Instructions: EVERY TUESDAY gabapentin 100 mg capsule 300 mg PO .AT NOON Held bumetanide 1 mg tablet 1 mg PO .PM Hold Instructions: Resume on 01/31/25. Hold until seen by primary care physician Referrals: No Primary/Family,Physician [Primary Care Provider] - Patient/Caregiver Discharge Instructions Other Discharge Activity Instructions:: Please follow-up with your primary care physician within 1 week upon discharge Please continue taking colchicine 0.6 mg daily and to follow-up with primary care physician to see if pain has subsided then it can be discontinued. Please follow-up with primary care physician to possibly refer you to a GI specialist for possible capsule endoscopy to see if source of bleeding can be identified. Please continue taking all home medications as prescribed We held your night time 1mg bumetadine and continued your 2mg bumetadine daily Please come back to the ER if symptoms persist or worsen. Education Materials: Diverticulosis Diverticulitis Print Language: [place] Stand Alone Forms: Elzbieta Award Info., Patient Portal Info Letter Quality Discharge Quality Measures VTE prophylaxis
--- NOTE | 2025-01-24 12:04 | XR_ITS ---
Examination: CT brain head without contrast. 2-D sagittal coronal reconstructions Date and time of exam:January 24, 2025 1218 hours Comparison January 20, 2025 INDICATIONS: Stroke alert, altered mental status slurred speech beginning this morning CTDI: vol (mGy):55 DLP: (mGycm):1052 Technique: Multiple CT axial sections of the brain have been obtained, 5 mm slice thickness. Contrast has not been administered. 2-D sagittal, coronal reconstructions have been obtained Low dose protocols were performed. One or more of the following dose reduction techniques were used; automated exposure control, adjustment of the mA and/or KV according to patient size, use of iterative reconstruction technique. Findings: No significant ventricular enlargement. Unchanged encephalomalacia right occipital lobe Intra-axial or extra-axial hemorrhage density is not seen. No mass effect or midline shift Basal cisterns are not remarkable. Fourth ventricle is midline. Cranial vault intact. Impression: No interval acute hemorrhage, mass effect or midline shift
--- NOTE | 2025-01-24 12:05 | EKG_ITS ---
[facility] Test Date: 2025-01-24 Pat Name: DOROTEO CAI Department: Room: S271A Gender: Male Experimental Physicist: ALISA : [id number] Requested By: Roland Collier Order Number: [id number] Reading MD: Roland Collier Measurements Intervals [place] Rate: 90 P: PA: QRS: 192 QRSD: 156 T: -16 QT: 414 QTc: 508 Interpretive Statements ATRIAL FIBRILLATION INDETERMINATE AXIS RIGHT BUNDLE BRANCH BLOCK LEFT POSTERIOR FASCICULAR BLOCK Compared to ECG 01/20/2025 10:41:27 Indeterminate axis now present Right bundle-branch block now present Left posterior fascicular block now present Intraventricular conduction delay no longer present /store/S0/[id number]/ecg/[id number].pdf
--- NOTE | 2025-01-24 12:30 | XR_ITS ---
Examination: CTA carotids with intravenous contrast CTA brain, head with intravenous contrast. 2-D sagittal, coronal reconstructions. 3-D reconstructions. Exam date and time: January 24, 2025 1233 hours INDICATIONS: Stroke alert, onset focal neurologic deficit today CTDI: vol (mGy) 47.8 DLP: (mGycm) 550 Technique: Multiple CTA axial brain, head carotid images post intravenous contrast injection 75 cc, [id number]. 2-D sagittal, coronal reconstructions. 3-D reconstructions, 3-D post processing including vascular maximum intensity projection images. Low dose protocols were performed. One or more of the following dose reduction techniques were used; automated exposure control, adjustment of the mA and/or KV according to patient size, use of iterative reconstruction technique. Findings: Heavy calcification right carotid bifurcation, 40-60% stenosis right carotid bifurcation origin right internal carotid artery No significant stenosis left carotid bifurcation origin left internal carotid artery Dominant right vertebral artery with no critical stenoses No cerebral large vessel arterial occlusions 50 % stenosis P2 segment right posterior cerebral artery IMPRESSION: 40-60% stenosis right carotid bifurcation origin right internal carotid artery No cerebral large vessel arterial occlusions
--- NOTE | 2025-01-24 12:52 | PD.TNEURO ---
Tele Neuro Consultation Consultation Date 01/24/25 Most Recent Vital Signs Last Vital Signs Temp 96.8 F 01/24/25 12:00 Pulse 93 01/24/25 12:00 Resp 15 01/24/25 12:00 BP 129/81 01/24/25 12:00 Pulse Ox 95 01/24/25 12:00 O2 Del Method Nasal Cannula 01/24/25 12:00 O2 Flow Rate 1 01/24/25 12:00 Laboratory-Coagulation Panel PT 11.8 Seconds (9.0-12.2) 01/20/25 11:26 INR 1.1 (0.9-1.3) 01/20/25 11: APTT 27.7 Seconds (22.0-36.0) 01/20/25 11:26 Consultation Narrative [facility] Tele[facility] Consult [facility] Patient Name:???Dakota Worthington Date of :???[id number] Identification Number:??? Date of Service:???01/24/2025 12:09:15 Diagnosis:?G93.49 - Encephalopathy Multifactorial Impression: ?84 yo M with PMH of HFpEF, CAD s/p CABG, Afib on eliquis, T2DM, melanoma, dementa, stroke in 2021, admitted for presyncope attributed to acute anemia, unable to locate source of bleeding, with stroke alert called for confusion and MERA. ?NIHSS of 17 due to decreased level of consciousness, confusion, generalized weakness, and aphasia with mild dysarthria. ?CTH without hemorrhage, notable for remote right occipital infarct. ?Thrombolytics contraindicated due to NOAC use. ?CTA head and neck pending. ?Syndrome seems most consistent with an encephalopathy from any cause. ?Differential includes acute ischemic stroke. ?Recommend infectious/metabolic work up including UA, TSH, B12, CXR CMP, CBC and MRI brain w/o to rule out acute process. Our recommendations are outlined below. Recommendations: ? Neuro Checks (Q4) ? Bedside Swallow Eval ? DVT Prophylaxis ? IV Fluids, Normal Saline ? Head of Bed 30 Degrees ? Euglycemia and Avoid Hyperthermia (PRN Acetaminophen) Sign Out: ? Discussed with Emergency Department Provider Advanced Imaging:Advanced imaging has been ordered. Results pending. Metrics: Last Known Well: 01/24/2025 11:30:15 Dispatch Time: 01/24/2025 12:09:15 Initial Response Time: 01/24/2025 12:12:07Symptoms: Altered mental status. Initial patient interaction: 01/24/2025 12:25:45 NIHSS Assessment Completed: 01/24/2025 12:40:44Patient is not a candidate for Thrombolytic. Thrombolytic Medical Decision: 01/24/2025 12:30:44Patient was not deemed candidate for Thrombolytic because of following reasons: Use of NOAC in last [address] Head: I personally reviewed all the CT images that were available to me and it showed: no hemorrhage Primary Provider Notified of Diagnostic Impression and Management Plan on: 01/24/2025 12:44:32 Spoke With: Dr. Hutchins Able to Reach 01/24/2025 12:44:32 History of Present Illness:Patient is a 84 year old Male. Inpatient stroke alert was called for symptoms of Altered mental status. 84 yo M with PMH of HFpEF, CAD s/p CABG, Afib on , T2DM, melanoma, dementia, stroke in 2021, admitted on 01/20/25 for presyncope attributed to acute anemia, unable to locate source of bleeding, with stroke alert called for confusion and MERA. Patient was seen during morning and was at baseline. Was noted to be lethargic which was attributed to anemia. Then this afternoon was confused and more lethargic. He also was complaining of a frontal MERA. ? Past Medical History: ?Diabetes Mellitus ?Atrial Fibrillation ?Stroke ?Dementia/MCI unable to obtain due to:?? Patient Is Obtunded/ Comatose Medications: Anticoagulant use:??Yes?eliquis 2.5mg BID No Antiplatelet use Reviewed EMR for current medications Allergies:? NKDA Allergies Unable To Obtain Due To:?Patient Is Obtunded/ Comatose Social History: Unable To Obtain Due To Patient Status :?Patient Is Obtunded/ Comatose Family History: Family History Cannot Be Obtained Because:Patient Is Obtunded/ Comatose ROS :?ROS Cannot Be Obtained Because:? Patient Is Obtunded/ Comatose Past Surgical History: Past Surgical History Cannot Be Obtained Because: Patient Is Obtunded/ Comatose There Is No Surgical History Contributory To Today?s Visit ? Examination: BP(130/80),?Pulse(80),?Blood Glucose(96) 1A: Level of Consciousness - Requires repeated stimulation to arouse?+ 2 1B: Ask Month and Age - Could Not Answer Either Question Correctly?+ 2 1C: Blink Eyes & Squeeze Hands - Performs 1 Task?+ 1 2: Test Horizontal Extraocular Movements - Normal?+ 0 3: Test Visual [place] - Patient is Bilaterally Blind?+ 3 4: Test Facial Palsy (Use Grimace if Obtunded) - Normal symmetry?+ 0 5A: Test Left Arm Motor Drift - Drift, but doesn't hit bed?+ 1 5B: Test Right Arm Motor Drift - Drift, but doesn't hit bed?+ 1 6A: Test Left Leg Motor Drift - Some Effort Against [place]?+ 2 6B: Test Right Leg Motor Drift - Some Effort Against [place]?+ 2 7: Test Limb Ataxia (FNF/Heel-Zambrano) - Does Not Understand?+ 0 8: Test Sensation - Normal; No sensory loss?+ 0 9: Test Language/Aphasia - Severe Aphasia: Fragmentary Expression, Inference Needed, Cannot Identify Materials?+ 2 10: Test Dysarthria - Mild-Moderate Dysarthria: Slurring but can be understood?+ 1 11: Test Extinction/Inattention - No abnormality?+ 0 NIHSS Score:?17 Pre-Morbid Modified [place] Scale:Unable to assess Spoke with :?Dr. Hutchins This consult was conducted in real time using interactive audio and video technology. Patient was informed of the technology being used for this visit and agreed to proceed. Patient located in hospital and provider located at home/office setting. Patient is being evaluated for possible acute neurologic impairment and high probability of imminent or life-threatening deterioration. I spent total of 51 minutes providing care to this patient, including time for face to face visit via telemedicine, review of medical records, imaging studies and discussion of findings with providers, the patient and/or family. Dr Michael Wilson [facility] For Inpatient follow-up with [facility] physician please call [facility] at . As we are not an outpatient service for any post hospital discharge needs please contact the hospital for assistance. If you have any questions for the [facility] physicians or need to reconsult for clinical or diagnostic changes please contact us via [facility] at .
[2025-01-24 12:54] LABS: Basophils % (Auto) 1 % (0-2.5); Eosinophils # (Auto) 0.2 Thou/mm3 (0.0-0.5); Eosinophils % (Auto) 2 % (0-10); Hematocrit 27.7 % (41.0-53.0); Hemoglobin 9.2 g/dL (13.5-16.0); Immature Granulocytes % (Auto) 0 % (0-0); Immature Granulocytes Auto 0.03 Thou/mm3 (0.00-0.00); Lymphocytes # (Auto) 1.1 Thou/mm3 (1.0-4.8); Lymphocytes % (Auto) 12 % (10-50); Mean Corpuscular HGB Conc 33.2 g/dl (31.0-37.0); Mean Corpuscular Hemoglobin 29.9 pg (25.0-35.0); Mean Corpuscular Volume 90 fL (80-100); Monocytes # (Auto) 0.7 Thou/mm3 (0.0-0.8); Monocytes % (Auto) 8 % (0-12); Neutrophils # (Auto) 6.8 Thou/mm3 (1.8-7.7); Neutrophils % (Auto) 77 % (37-80); Nucleated Red Blood Cell % 0 /100 WBC (0); Platelet Count 292 Thou/mm3 (140-440); RDW Standard Deviation 44.1 fL (35.1-43.9); Red Blood Count 3.08 Miln/mm3 (4.50-5.90); White Blood Count 8.9 Thou/mm3 (3.8-10.6)
--- NOTE | 2025-01-24 13:14 | PD.RESEVENT ---
Documentation for date of: 01/24/25 Event Note Event Note: We were called around 1155 to patient's bedside given the patient's mental status had change and he was not waking up for the nurse or his . At bedside patient was very somnolent and difficult to arouse only arousable to physical stimuli. Patient was unable to follow commands to full extent and he was AO x 1 only. His pupils were reactive at this time and he was following some commands, but not to full extent and his muscle strength bilaterally was decreased which could have been due to encephalopathy most likely. At this time patient's vitals were stable. Prior to this change in mental status patient's stated that patient was complaining of a severe headache frontal. His blood pressure was stable at this time. Rapid response then was called around 12 noon time and given patient's acute change in mental status as well as his history of CVA and history of A-fib stroke alert was decided to be called after rapid response was called. At this time patient was taken to CT for head CT and CTA and teleneurology was also consulted. EKG and labs were ordered as well. Case disclosed with my attending Dr. Hutchins and my senior Dr Kapadia PGY2. Disclaimer: This note was dictated by speech recognition and even though it was carefully revised there may still be minor errors in environmental service aide due to voice recognition software.
--- NOTE | 2025-01-24 13:18 | ESPR_ITS ---
Documentation for date of: 01/24/25 Subjective Subjective Interval history: Patient was seen and examined at bedside this morning. No acute overnight events. Patient was doing well this morning with no new complaints in his upper airway congestion that sounds a lot better and his gout flareup was more under control. Patient underwent colonoscopy yesterday evening and he did not have an identifiable source of bleeding and only was found to have diverticulosis. Later on in the afternoon patient had a change in mentation therefore rapid response and stroke alert were called. Please see attached event note from earlier today for more details. After patient got back from the head CT and CTA I reassessed the patient and he was AO x 2 again and he was more responsive and following all commands. Patient's and daughter were at bedside at this time and they were concerned given that he had a acute change in mental status and that this had previously happened when he had the other CVA. They also mention that he did have carotid endarterectomy in the past as well. They were reassured that head CT did not show any acute process at the time and they we will get further recommendations from teleneurology. Exam Vital Signs Temp Pulse Resp BP Pulse Ox O2 Del Method O2 Flow Rate 96.8 F 93 15 129/81 95 Nasal Cannula 1 01/24/25 12:00 01/24/25 12:00 01/24/25 12:00 01/24/25 12:00 01/24/25 12:01/24/25 12:01/24/25 12:00 Narrative Exam General: A/O x2 (not to time), no acute distress Eyes: PERRL, EOMI. Anicteric, vision grossly intact. Ears: No ear pain, no ear discharge, Hearing mildly impaired. Nose: No nasal discharge. Mouth/Throat: Moist mucous membranes, no redness, no lesions. Neck: Neck supple, non-tender, no cervical lymphadenopathy. Lungs: Upper airway congestion improving, but clear breath sounds throughout, No accessory muscle use. Cardio: Normal S1/S2, regular rhythm, no murmurs, no JVD Abdomen: Soft, non-tender but distended, no palpable masses, peristalsis present, no guarding or rebound. Extremities: Symmetrical, no significant deformities, trace peripheral edema , R branner machine tender but same as yesterday, peripheral pulses presents. Skin: No rashes, no lesions, warm to touch. Neuro: No focal neurological deficits. Patient had a momentarily change in mental status where he is less responsive and more somnolent, but after patient came back from head CT and CTA the symptoms had resolved and he was back to his AO x 2 and was following commands. Objective Labs 01/25/25 04:19 01/25/25 04:19 Labs: Laboratory Results - last 24 hr 01/20/25 01/24/25 01/24/25 13:15 05:28 12:40 WBC 9.0 8.9 RBC 3.26 L 3.08 L Hgb 9.6 L 9.2 L Hct 29.5 L 27.7 L MCV 91 90 MCH 29.4 29.9 MCHC 32.5 33.2 RDW Std Deviation 44.2 H 44.1 H Plt Count 315 292 Neut % (Auto) 67 77 Lymph % (Auto) 19 12 [place] % (Auto) 10 8 Eos % (Auto) 3 2 Baso % (Auto) 1 1 Neut # (Auto) 6.1 6.8 Lymph # (Auto) 1.7 1.1 [place] # (Auto) 0.9 H 0.7 Eos # (Auto) 0.3 0.2 Baso # (Auto) 0.1 0.0 Immature Gran # (Auto) 0.01 H 0.03 H Absolute Nucleated RBC 0.00 0.00 Immature Gran % 0 0 Nucleated RBC % 0 0 Sodium 141 Potassium 3.7 Chloride 103 Carbon Dioxide 26.7 Anion Gap 11 BUN 13 Creatinine 0.9 Estim Creat Clear Calc 61.5 eGFR > 60 BUN/Creatinine Ratio 14 Glucose 96 Calculated Osmolality 281 Calcium 8.5 Corrected Calcium 8.8 Magnesium 2.0 Total Bilirubin 0.5 AST 12 ALT 8 L Alkaline Phosphatase 65 Total Protein 5.7 Albumin 3.6 Globulin 2.1 L Albumin/Globulin Ratio 1.7 Crossmatch See Detail ABG Interpretation ABG results: 01/20/25 11:30 ABG pH 7.44 ABG pCO2 36 ABG pO2 99 ABG HCO3 24 ABG O2 Saturation 99 H ABG Base Excess 0 Quality Measures Quality Measures none Advance care planning discussed with:: patient, spouse and child Assessment & Plan Assessment Current Active Medications: Generic Name Dose Route Start Last Admin Trade Name Freq PRN Reason Stop Dose Admin Acetaminophen 650 mg 01/20/25 15:41 01/22/25 02:38 Acetaminophen 325 Mg Tablet PO 02/19/25 15:40 650 mg Q6H PRN Administration Fever >100.3 or Pain 1-3 Albuterol/Ipratropium 3 ml 01/20/25 17:24 01/24/25 10:39 Albuterol/Ipratropium (Duoneb) Rt Joselyn 3 Ml Nebu INH 02/19/25 17:23 3 ml Q4HR PRN Administration SHORTNESS OF BREATH OR WHEEZE Protocol Apixaban 2.5 mg 01/20/25 21:00 01/24/25 09:06 Apixaban 2.5 Mg Tablet PO 02/19/25 20:59 2.5 mg BID WALDEMAR Administration Atorvastatin Calcium 20 mg 01/20/25 21:00 01/23/25 22:43 Atorvastatin Calcium 20 Mg Tablet PO 02/19/25 20:59 20 mg HS WALDEMAR Administration Benzocaine 1 lozenge 01/23/25 13:24 01/23/25 13:38 Benzocaine/Menthol 1 Lozenge PO 02/22/25 13:23 1 lozenge Q4HR PRN Administration SORE THROAT Budesonide 0.25 mg 01/20/25 16:54 01/22/25 08:40 Budesonide Rt 0.25 Mg/2 Ml Nebu INH 02/19/25 18:59 0.25 mg BIDRT PRN Administration SHORTNESS OF BREATH Protocol Colchicine 0.6 mg 01/21/25 15:45 01/24/25 09:06 Colchicine 0.6 Mg Tablet PO 02/20/25 15:44 0.6 mg QDAY WALDEMAR Administration Dextrose 25 ml 01/20/25 16:28 Dextrose 50%-Water Inj 50 Ml Syringe IV 02/19/25 16:27 Q15MIN PRN BG 50-70 responsive npo pt Dextrose 50 ml 01/20/25 16:28 Dextrose 50%-Water Inj 50 Ml Syringe IV 02/19/25 16:27 Q15MIN PRN BG <50 OR BG <70 & pt unresponsive Donepezil HCl 10 mg 01/20/25 21:00 01/23/25 22:44 Donepezil Hcl 5 Mg Tablet PO 02/19/25 20:59 10 mg HS WALDEMAR Administration Finasteride 5 mg 01/21/25 09:00 01/24/25 09:07 Finasteride 5 Mg Tablet PO 02/20/25 08:59 5 mg QDAY WALDEMAR Administration Glucagon 1 mg 01/20/25 16:28 Glucagon Inj 1 Mg Vial IM Q15MIN PRN BG <70, and no IV access Insulin Human Lispro 0 unit 01/20/25 17:00 01/24/25 07:28 Insulin Lispro (Admelog) 1 Unit/0.01 Ml Unit SC 02/19/25 16:59 Not Given AC COUNT INCLUDES THE [facility] Protocol Metoclopramide HCl 10 mg 01/20/25 15:41 Metoclopramide 5 Mg Tablet PO 02/19/25 15:40 Q6H PRN NAUSEA OR VOMITING Pantoprazole Sodium 40 mg 01/24/25 21:00 Pantoprazole 40 Mg Tablet PO 02/23/25 20:59 BID WALDEMAR Pregabalin 50 mg 01/21/25 22:00 01/24/25 05:30 Pregabalin 50 Mg Capsule PO 02/20/25 21:59 50 mg TID WALDEMAR Administration Tamsulosin HCl 0.4 mg 01/21/25 09:00 01/24/25 09:06 Tamsulosin Hcl 0.4 Mg Capsule PO 02/20/25 08:59 0.4 mg QDAY WALDEMAR Administration Plan 84-year-old male with past medical history significant for chronic A-fib on Eliquis, CAD status post CABG, CHF, pas-[id number]-[id number] type 2 diabetes, BPH, melanoma, hearing loss, dementia, history of stroke in 2021, right retinal tear surgery, and gout admitted for presyncope likely secondary to GI bleed. #Acute encephalopathy #Headache #Stroke rule out Patient had an acute change in mental status this afternoon after he was experiencing a headache and he was more somnolent and was not able to follow commands and was AO x 1 only. At this time patient had also complained of a severe headache right before these changes occur. ?DDx TIA versus stroke ?NIHSS score 17 ?CTA head and neck showed stenosis 40 to 60% of right carotid bifurcation ?CT head negative ?Teleneuro consulted and advised MRI without contrast and to rule out possible infectious source for possible encephalopathy Plan: ?Patient is on aspirin and atorvastatin ?Neurochecks every 4 hours ?Aspiration precautions ?Ordered blood cultures to rule out any possible source of infection and order chest x-ray as well. -Will consult in-hospital neurology after MRI results as it could be do to infectious etiology -Referred to speech and physical therapy #Presyncope # Diverticulosis Patient initially presented with episode of presyncope after eating breakfast . Patient was staring up into the ashley for about 15 minutes and for gaining consciousness. Most likely upper GI bleed vs. lower GI bleed. Pt presented with low hemoglobin count of 7.3, baseline is around 12 FOBT positive 2 units of PRBC given throughout hospital stay EGD did not showed source of bleeding Colonoscopy showed diverticulosis but no source of bleeding Would benefit from outpatient capsule endoscopy Hgb stable at 9.2 Plan: -Consulted GI, appreciate reccomendations -Daily CBC to monitor Hgb -Continue on Protonix #Gout flare #Hx of gout Patient was having excrutiation pain for which he was started on colchicine 1.2 mg x1 followed by 0.6mg maintenance dose Uric acid 9.2 Stable Plan: -Continue Colchicine 0.6mg until pain has resolved -Will continue to monitor #ALEXEI, resolved Cr on presentation was 1.6. Baseline is 1.3. Likely pre-renal due to possible dehydration vs diuretic use Cr today 0.9 Plan: -Avoid nephrotoxin agents -Renally dose medications -Continue to monitor signs and symptoms #Acute decompensated Heart Failure Exacerbation #HFpEF (55% 01/2025) #CAD s/p CABG #History of CVA in 2021 BNP mildly elevated at 211. Patient chronically takes Bumex, ASA Echocardiogram showed normal ejection fraction of 55%, normal LV size and function and RV normal with mildly elevated LA, mitral and tricuspid regurg. Plan: -Will resume ASA -Will resume patient's dose equivalent home simvastatin -Fluid restriction 1500ml -Strict I's/O's -daily weights #Chronic atrial fibrillation Kristian Vascor is 7. Patient is chronically on Eliquis 5 mg twice daily EKG on admission showed A-fib with slow ventricular rate Plan: - Continue Eliquis dose to 2.5 mg twice daily to reflect current creatinine level and age - Will resume Diltiazem 120 ER #Type 2 diabetes not on chronic insulin therapy #Diabetic neuropathy Last A1c was 6.2% - Hypoglycemic protocol in place - ISS - Continue pregabalin 50 mg 3 times daily #BPH -Continue patient's home tamsulosin and finasteride #Dementia-stable - Continue home Donepezil Disposition: Pending MRI w/o contrast Diet: Cardiac GI prophylaxis: protonix DVT prophylaxis: Eliquis Code:Limited code, chest compressions are okay for 5 to 10 minutes, DNI Case disclosed with Attending Dr. Liset Luis PGY1 Disclaimer: This note was dictated by speech recognition and even though it was carefully revised there may still be minor errors in consultant [employer]. vice president [employer] (ex ) due to voice recognition software. Attending Provider Attestation/Addendum I reviewed labs, imaging, EKG, home medications and prior available records. Face to face evaluation was performed by me. I have personally examined the patient and discussed assessment and plan with the IM team. I reviewed the resident note and agree with the plan with exceptions as below. GI bleed Presyncope HFpEF EF 55% Atrial fibrillation with controlled ventricular rhythm ALEXEI on CKD CAD Rapid response was called for acute encephalopathy. Code stroke was activated. CT scan of the head is negative for acute intracranial pathologies. CTA of the head/neck showed no major vessel occlusion. Discussed the case with teleneurology: Ordered brain MRI. Rule out metabolic versus infectious etiologies. Ordered CBC and BMP. See event note Status post EGD that showed no source of bleeding. Status post colonoscopy that showed polyps and diverticular disease. Repeat colonoscopy in 5 years Discussed with GI: Okay to resume Eliquis Continue p.o. Bumex. Outpatient follow-up with cardiology
[2025-01-24 13:26] LABS: Alanine Aminotransferase 7 U/L (10-49); Albumin, Serum 3.4 gm/dL (3.4-4.8); Albumin/Globulin Ratio 1.8 (1.2-2.2); Alkaline Phosphatase 60 U/L (46-116); Anion Gap 9 (7-16); Aspartate Amino Transferase 10 U/L (0-34); BUN/Creatinine Ratio 14 Ratio (12-20); Bilirubin,Total 0.4 mg/dL (0.3-1.2); Blood Urea Nitrogen 14 mg/dL (9-23); Calcium 8.5 mg/dL (8.3-10.6); Carbon Dioxide 24.8 mMol/L (20.0-31.0); Chloride 101 mMol/L (98-107); Estimated Creatinine Clearance 55.4 mL/min (>60); Globulin 1.9 gm/dL (2.3-3.5); Glucose 153 mg/dL (74-106); Osmolality,Calculated 273 (275-295); Sodium 135 mMol/L (136-145); Total Protein 5.3 gm/dL (5.7-8.2); Troponin I < 0.020 ng/mL (0.0-0.045); eGFR > 60 See Note
--- NOTE | 2025-01-24 13:30 | XR_ITS ---
Examination: AP chest single view Technique one AP portable semiupright chest single view Date and time: January 24, 2025 1351 hours Comparison January 23, 2025 INDICATIONS: Shortness of breath today. FINDINGS: Mild heart failure Mild to moderate enlargement cardiac contour Prominent vascular congestion Median sternotomy wires No lobar pneumonia IMPRESSION: Mild heart failure
[2025-01-24] MEDS: DILTIAZEM CD 120 MG CAPCR PO (14:36)
[2025-01-24] MEDS: ASPIRIN EC 81 MG TABEC PO (14:39)
--- NOTE | 2025-01-24 16:15 | PC.SS ---
Rounding note: pending MRI before d/c.
--- NOTE | 2025-01-24 19:32 | ESPR_ITS ---
Documentation for date of: 01/24/25 Subjective Subjective Interval history: Patient evaluated Hemoglobin hematocrit 9.2 and 27.7 Upper endoscopy shows gastritis Colonoscopy showed sigmoid colon polyp endoscopic resected along with [place] diverticulosis Exam Vital Signs Temp Pulse Resp BP Pulse Ox O2 Del Method O2 Flow Rate 97.1 F 79 16 129/61 99 Nasal Cannula 1 01/24/25 16:00 01/24/25 16:00 01/24/25 16:00 01/24/25 16:00 01/24/25 16:00 01/24/25 16:00 01/24/25 16:00 Objective Labs 01/24/25 12:40 01/24/25 12:40 Labs: Laboratory Results - last 24 hr 01/20/25 01/24/25 01/24/25 13:15 05:28 12:40 WBC 9.0 8.9 RBC 3.26 L 3.08 L Hgb 9.6 L 9.2 L Hct 29.5 L 27.7 L MCV 91 90 MCH 29.4 29.9 MCHC 32.5 33.2 RDW Std Deviation 44.2 H 44.1 H Plt Count 315 292 Neut % (Auto) 67 77 Lymph % (Auto) 19 12 [place] % (Auto) 10 8 Eos % (Auto) 3 2 Baso % (Auto) 1 1 Neut # (Auto) 6.1 6.8 Lymph # (Auto) 1.7 1.1 [place] # (Auto) 0.9 H 0.7 Eos # (Auto) 0.3 0.2 Baso # (Auto) 0.1 0.0 Immature Gran # (Auto) 0.01 H 0.03 H Absolute Nucleated RBC 0.00 0.00 Immature Gran % 0 0 Nucleated RBC % 0 0 Sodium 141 135 L Potassium 3.7 4.0 Chloride 103 101 Carbon Dioxide 26.7 24.8 Anion Gap 11 9 BUN 13 14 Creatinine 0.9 1.0 Estim Creat Clear Calc 61.5 55.4 L eGFR > 60 > 60 BUN/Creatinine Ratio 14 14 Glucose 96 153 H D Calculated Osmolality 281 273 L Calcium 8.5 8.5 Corrected Calcium 8.8 9.0 Magnesium 2.0 Total Bilirubin 0.5 0.4 AST 12 10 ALT 8 L 7 L Alkaline Phosphatase 65 60 Troponin I < 0.020 Total Protein 5.7 5.3 L Albumin 3.6 3.4 Globulin 2.1 L 1.9 L Albumin/Globulin Ratio 1.7 1.8 Crossmatch See Detail Impressions Impression: Gastritis Sigmoid colon polyp Diverticulosis: Left colon Continue current management ABG Interpretation ABG results: 01/20/25 11:30 ABG pH 7.44 ABG pCO2 36 ABG pO2 99 ABG HCO3 24 ABG O2 Saturation 99 H ABG Base Excess 0 Assessment & Plan A&P Narrative # Occult GI bleeding # Acute posthemorrhagic anemia Plan Case discussed with the internal medicine team in the ER team Patient will be given 2 units of PRBCs Clear liquid diet up until midnight tonight N.p.o. after midnight except p.o. meds Consent obtained for fiberoptic esophagogastroduodenoscopy with possible therapeutic intervention possible biopsy under intravenous moderate sedation If EGD is negative we will consider doing a fiberoptic colonoscopy prior to discharge as there is a significant drop in hemoglobin hematocrit which was 12.3 and 36.7 on 12/21/2024 Other medical problems include Chronic atrial fibrillation decrease the Eliquis to 2.5 mg p.o. twice daily but continue the as patient already had a stroke before and the risk of stroke again which is much higher Coronary artery disease status post CABG Congestive heart failure systolic BPH CVA 2021 History of melanoma Thank you very much for the opportunity to participate in the care of this patient Time Spent With Patient Time: Total time spent is greater than 50% in coordination of care (as documented) at patient's floor/unit and/or counseling patient:
[2025-01-24] MEDS: PANTOPRAZOLE 40 MG TABLET PO (20:53)
[2025-01-24] MEDS: DONEPEZIL HCL 5 MG TABLET 10 MG PO (20:53)
[2025-01-24] MEDS: ATORVASTATIN CALCIUM 20 MG TABLET PO (20:53)
[2025-01-25] VITALS (10 sets, daily range): BP systolic 88–124; BP diastolic 62–79; PULSE 64–91; RESP 12–90; TEMP 36.2–36.6; O2SAT 93–98; BMI 36.8
--- NOTE | 2025-01-25 | XR_ITS ---
Examination: MRI brain without intravenous contrast. Date and time of exam: January 25, 2025 1425 hours INDICATIONS: Stroke alert, January 24, 2025 4 altered mental status slurred speech focal neurologic deficit Technique: Multiple axial and sagittal images of the brain obtained. Siemens high-resolution 1.5 Deann short bore scanners utilized. Sagittal sections, T1-weighted, TR 500, TE 14, are performed. Axial sections proton-density and T2-weighted have been obtained. Inversion recovery axial images, TR 9, 260, TE 111, TI 2500. Diffusion weighted images, axial sections, TR 4800, TE 128, B value 1000 Axial sections, ADC map, TR 4800, TE 128 Findings: Enlargement of the sella turcica is not present. The optic chiasm and infundibular are not remarkable. Prepontine and interpeduncular cisterns are not enlarged. There is no localized enlargement of the medulla or jonathan. Fourth ventricle and cerebellar tonsils appear normal in position. No subacute area of hemorrhage density is seen. Mass in the cerebellopontine angle region is not evident. Globes symmetrical. Orbital musculature including medial lateral rectus muscles do not exhibit abnormality. Diffusion-weighted images demonstrate no focus of restricted diffusion Increased white matter signal , including large old infarct right occipital lobe Mass effect upon the ventricular system is not identified. Impression: Negative for acute hemorrhage mass effect or midline shift No acute infarct Large old infarct right occipital lobe
[2025-01-25] MEDS: PREGABALIN 50 MG CAPSULE PO ×3 (05:32→21:10)
[2025-01-25 06:23] LABS: Basophils # (Auto) 0.1 Thou/mm3 (0.0-0.2); Basophils % (Auto) 1 % (0-2.5); Eosinophils # (Auto) 0.3 Thou/mm3 (0.0-0.5); Eosinophils % (Auto) 3 % (0-10); Hematocrit 28.5 % (41.0-53.0); Hemoglobin 9.4 g/dL (13.5-16.0); Immature Granulocytes % (Auto) 0 % (0-0); Immature Granulocytes Auto 0.03 Thou/mm3 (0.00-0.00); Lymphocytes # (Auto) 2.1 Thou/mm3 (1.0-4.8); Lymphocytes % (Auto) 23 % (10-50); Mean Corpuscular Hemoglobin 29.5 pg (25.0-35.0); Mean Corpuscular Volume 89 fL (80-100); Monocytes # (Auto) 0.9 Thou/mm3 (0.0-0.8); Monocytes % (Auto) 10 % (0-12); Neutrophils # (Auto) 5.7 Thou/mm3 (1.8-7.7); Neutrophils % (Auto) 63 % (37-80); Nucleated Red Blood Cell % 0 /100 WBC (0); Platelet Count 316 Thou/mm3 (140-440); RDW Standard Deviation 43.8 fL (35.1-43.9); Red Blood Count 3.19 Miln/mm3 (4.50-5.90); White Blood Count 9.1 Thou/mm3 (3.8-10.6)
[2025-01-25] MEDS: BUDESONIDE RT 0.25 MG/2 ML NEBU INH (06:31)
[2025-01-25] MEDS: ALBUTEROL/IPRATROPIUM (Duoneb) RT SOL 3 ML NEBU INH ×2 (06:31→19:51)
[2025-01-25 07:04] LABS: Alanine Aminotransferase < 7 U/L (10-49); Albumin, Serum 3.7 gm/dL (3.4-4.8); Albumin/Globulin Ratio 1.8 (1.2-2.2); Alkaline Phosphatase 66 U/L (46-116); Anion Gap 9 (7-16); Aspartate Amino Transferase 13 U/L (0-34); BUN/Creatinine Ratio 15 Ratio (12-20); Bilirubin,Total 0.4 mg/dL (0.3-1.2); Blood Urea Nitrogen 17 mg/dL (9-23); Calcium 8.4 mg/dL (8.3-10.6); Calcium (Corrected) 8.6 mg/dL (8.5-10.1); Carbon Dioxide 25.6 mMol/L (20.0-31.0); Chloride 104 mMol/L (98-107); Creatinine (Component) 1.1 mg/dL (0.6-1.3); Globulin 2.1 gm/dL (2.3-3.5); Glucose 115 mg/dL (74-106); Osmolality,Calculated 280 (275-295); Sodium 139 mMol/L (136-145); Total Protein 5.8 gm/dL (5.7-8.2); eGFR > 60 See Note
[2025-01-25] MEDS: PANTOPRAZOLE 40 MG TABLET PO ×2 (09:29→20:40)
[2025-01-25] MEDS: COLCHICINE 0.6 MG TABLET PO (09:29)
[2025-01-25] MEDS: TAMSULOSIN HCL 0.4 MG CAPSULE PO (09:29)
[2025-01-25] MEDS: ASPIRIN EC 81 MG TABEC PO (09:29)
[2025-01-25] MEDS: DILTIAZEM CD 120 MG CAPCR PO (09:29)
[2025-01-25] MEDS: FINASTERIDE 5 MG TABLET PO (09:30)
[2025-01-25] MEDS: APIXABAN 2.5 MG TABLET PO ×2 (09:30→20:39)
--- NOTE | 2025-01-25 10:49 | PD.RESPRO ---
Documentation for date of: 01/25/25 Subjective Subjective Interval history: Patient was seen and examined at bedside this morning. No acute overnight events. Patient is still pending MRI today, but his mental status is back to his baseline. Patient has not spiked any fevers or WBCs and hemoglobin is stable. Blood cultures still pending. Patient's creatinine function did go up slightly to 1.1 today this was most likely due to contrast given yesterday during the head CTA. Exam Vital Signs Temp Pulse Resp BP Pulse Ox O2 Del Method O2 Flow Rate 97.8 F 64 12 124/67 95 Nasal Cannula 1 01/25/25 08:00 01/25/25 09:29 01/25/25 09:00 01/25/25 09:29 01/25/25 09:00 01/25/25 08:00 01/25/25 09:00 Narrative Exam General: A/O x2 (not to time), no acute distress Eyes: PERRL, EOMI. Anicteric, vision grossly intact. Ears: No ear pain, no ear discharge, Hearing mildly impaired. Nose: No nasal discharge. Mouth/Throat: Moist mucous membranes, no redness, no lesions. Neck: Neck supple, non-tender, no cervical lymphadenopathy. Lungs: Upper airway congestion improved, clear breath sounds throughout, No accessory muscle use. Cardio: Normal S1/S2, regular rhythm, no murmurs, no JVD Abdomen: Soft, non-tender but distended, no palpable masses, peristalsis present, no guarding or rebound. Extremities: Symmetrical, no significant deformities, trace peripheral edema , R foot tenderness improving, peripheral pulses presents. Skin: No rashes, no lesions, warm to touch. Neuro: No focal neurological deficits. motor and sensory intact Objective Labs 01/26/25 06:06 01/26/25 06:06 Labs: Laboratory Results - last 24 hr 01/24/25 01/25/25 12:40 04:19 WBC 8.9 9.1 RBC 3.08 L 3.19 L Hgb 9.2 L 9.4 L Hct 27.7 L 28.5 L MCV 90 89 MCH 29.9 29.5 MCHC 33.2 33.0 RDW Std Deviation 44.1 H 43.8 Plt Count 292 316 Neut % (Auto) 77 63 Lymph % (Auto) 12 23 [place] % (Auto) 8 10 Eos % (Auto) 2 3 Baso % (Auto) 1 1 Neut # (Auto) 6.8 5.7 Lymph # (Auto) 1.1 2.1 [place] # (Auto) 0.7 0.9 H Eos # (Auto) 0.2 0.3 Baso # (Auto) 0.0 0.1 Immature Gran # (Auto) 0.03 H 0.03 H Absolute Nucleated RBC 0.00 0.00 Immature Gran % 0 0 Nucleated RBC % 0 0 Sodium 135 L 139 Potassium 4.0 4.0 Chloride 101 104 Carbon Dioxide 24.8 25.6 Anion Gap 9 9 BUN 14 17 Creatinine 1.0 1.1 Estim Creat Clear Calc 55.4 L 51.0 L eGFR > 60 > 60 BUN/Creatinine Ratio 14 15 Glucose 153 H D 115 H Calculated Osmolality 273 L 280 Calcium 8.5 8.4 Corrected Calcium 9.0 8.6 Magnesium 2.0 Total Bilirubin 0.4 0.4 AST 10 13 ALT 7 L < 7 L Alkaline Phosphatase 60 66 Troponin I < 0.020 Total Protein 5.3 L 5.8 Albumin 3.4 3.7 Globulin 1.9 L 2.1 L Albumin/Globulin Ratio 1.8 1.8 ABG Interpretation ABG results: 01/20/25 11:30 ABG pH 7.44 ABG pCO2 36 ABG pO2 99 ABG HCO3 24 ABG O2 Saturation 99 H ABG Base Excess 0 Quality Measures Quality Measures none Advance care planning discussed with:: patient Assessment & Plan Assessment Current Active Medications: Generic Name Dose Route Start Last Admin Trade Name Freq PRN Reason Stop Dose Admin Acetaminophen 650 mg 01/20/25 15:41 01/22/25 02:38 Acetaminophen 325 Mg Tablet PO 02/19/25 15:40 650 mg Q6H PRN Administration Fever >100.3 or Pain 1-3 Albuterol/Ipratropium 3 ml 01/20/25 17:24 01/25/25 06:31 Albuterol/Ipratropium (Duoneb) Rt Joselyn 3 Ml Nebu INH 02/19/25 17:23 3 ml Q4HR PRN Administration SHORTNESS OF BREATH OR WHEEZE Protocol Apixaban 2.5 mg 01/20/25 21:00 01/25/25 09:30 Apixaban 2.5 Mg Tablet PO 02/19/25 20:59 2.5 mg BID WALDEMAR Administration Aspirin 81 mg 01/24/25 13:30 01/25/25 09:29 Aspirin Ec 81 Mg Tabec PO 02/23/25 13:29 81 mg QDAY WALDEMAR Administration Atorvastatin Calcium 20 mg 01/20/25 21:00 01/24/25 20:53 Atorvastatin Calcium 20 Mg Tablet PO 02/19/25 20:59 20 mg HS WALDEMAR Administration Benzocaine 1 lozenge 01/23/25 13:24 01/23/25 13:38 Benzocaine/Menthol 1 Lozenge PO 02/22/25 13:23 1 lozenge Q4HR PRN Administration SORE THROAT Budesonide 0.25 mg 01/20/25 16:54 01/25/25 06:31 Budesonide Rt 0.25 Mg/2 Ml Nebu INH 02/19/25 18:59 0.25 mg BIDRT PRN Administration SHORTNESS OF BREATH Protocol Colchicine 0.6 mg 01/21/25 15:45 01/25/25 09:29 Colchicine 0.6 Mg Tablet PO 02/20/25 15:44 0.6 mg QDAY WALDEMAR Administration Dextrose 25 ml 01/20/25 16:28 Dextrose 50%-Water Inj 50 Ml Syringe IV 02/19/25 16:27 Q15MIN PRN BG 50-70 responsive npo pt Dextrose 50 ml 01/20/25 16:28 Dextrose 50%-Water Inj 50 Ml Syringe IV 02/19/25 16:27 Q15MIN PRN BG <50 OR BG <70 & pt unresponsive Diltiazem HCl 120 mg 01/24/25 13:30 01/25/25 09:29 Diltiazem Cd 120 Mg Capcr PO 02/23/25 13:29 120 mg DAILY WALDEMAR Administration Donepezil HCl 10 mg 01/20/25 21:00 01/24/25 20:53 Donepezil Hcl 5 Mg Tablet PO 02/19/25 20:59 10 mg HS WALDEMAR Administration Finasteride 5 mg 01/21/25 09:00 01/25/25 09:30 Finasteride 5 Mg Tablet PO 02/20/25 08:59 5 mg QDAY WALDEMAR Administration Glucagon 1 mg 01/20/25 16:28 Glucagon Inj 1 Mg Vial IM Q15MIN PRN BG <70, and no IV access Insulin Human Lispro 0 unit 01/20/25 17:00 01/25/25 07:26 Insulin Lispro (Admelog) 1 Unit/0.01 Ml Unit SC 02/19/25 16:59 Not Given AC [facility] Protocol Metoclopramide HCl 10 mg 01/20/25 15:41 Metoclopramide 5 Mg Tablet PO 02/19/25 15:40 Q6H PRN NAUSEA OR VOMITING Pantoprazole Sodium 40 mg 01/24/25 21:00 01/25/25 09:29 Pantoprazole 40 Mg Tablet PO 02/23/25 20:59 40 mg BID WALDEMAR Administration Pregabalin 50 mg 01/21/25 22:00 01/25/25 05:32 Pregabalin 50 Mg Capsule PO 02/20/25 21:59 50 mg TID WALDEMAR Administration Tamsulosin HCl 0.4 mg 01/21/25 09:00 01/25/25 09:29 Tamsulosin Hcl 0.4 Mg Capsule PO 02/20/25 08:59 0.4 mg QDAY WALDEMAR Administration Plan 84-year-old male with past medical history significant for chronic A-fib on Eliquis, CAD status post CABG, CHF, [id number] type 2 diabetes, BPH, melanoma, hearing loss, dementia, history of stroke in 2021, right retinal tear surgery, and gout admitted for presyncope likely secondary to GI bleed. #Acute encephalopathy #Headache #Stroke rule out Patient had an acute change in mental status this afternoon after he was experiencing a headache and he was more somnolent and was not able to follow commands and was AO x 1 only. At this time patient had also complained of a severe headache right before these changes occur. ?DDx TIA versus stroke ?NIHSS score 17 ?CTA head and neck showed stenosis 40 to 60% of right carotid bifurcation ?CT head negative ?Teleneuro consulted and advised MRI without contrast and to rule out possible infectious source for possible encephalopathy Plan: -MRI pending ?Patient is on aspirin and atorvastatin ?Aspiration precautions ?Ordered blood cultures to rule out any possible source of infection and order chest x-ray as well. -Will consult in-hospital neurology after MRI results as it could be do to infectious etiology -Referred to speech and physical therapy #Presyncope # Diverticulosis Patient initially presented with episode of presyncope after eating breakfast . Patient was staring up into the ashley for about 15 minutes and for gaining consciousness. Most likely upper GI bleed vs. lower GI bleed. Pt presented with low hemoglobin count of 7.3, baseline is around 12 FOBT positive 2 units of PRBC given throughout hospital stay EGD did not showed source of bleeding Colonoscopy showed diverticulosis but no source of bleeding Would benefit from outpatient capsule endoscopy Hgb stable at 9.1 Plan: -Consulted GI, appreciate reccomendations -Daily CBC to monitor Hgb -Continue on Protonix #Gout flare #Hx of gout Patient was having excrutiation pain for which he was started on colchicine 1.2 mg x1 followed by 0.6mg maintenance dose Uric acid 9.2 Stable Plan: -Continue Colchicine 0.6mg until pain has resolved -Will continue to monitor #ALEXEI, resolved Cr on presentation was 1.6. Baseline is 1.3. Likely pre-renal due to possible dehydration vs diuretic use Cr today 1.1, likley due to contrast yesterday Plan: -Avoid nephrotoxin agents -Renally dose medications -Continue to monitor signs and symptoms #Acute decompensated Heart Failure Exacerbation #HFpEF (55% 01/2025) #CAD s/p CABG #History of CVA in 2021 BNP mildly elevated at 211. Patient chronically takes Bumex, ASA Echocardiogram showed normal ejection fraction of 55%, normal LV size and function and RV normal with mildly elevated LA, mitral and tricuspid regurg. Plan: -Will resume ASA -Will resume patient's dose equivalent home simvastatin -Fluid restriction 1500ml -Strict I's/O's -daily weights #Chronic atrial fibrillation Kristian Vascor is 7. Patient is chronically on Eliquis 5 mg twice daily EKG on admission showed A-fib with slow ventricular rate Plan: - Continue Eliquis dose to 2.5 mg twice daily to reflect current creatinine level and age - Will resume Diltiazem 120 ER #Type 2 diabetes not on chronic insulin therapy #Diabetic neuropathy Last A1c was 6.2% - Hypoglycemic protocol in place - ISS - Continue pregabalin 50 mg 3 times daily #BPH -Continue patient's home tamsulosin and finasteride #Dementia-stable - Continue home Donepezil Disposition: Pending MRI w/o contrast Diet: Cardiac GI prophylaxis: protonix DVT prophylaxis: Eliquis Code:Limited code, chest compressions are okay for 5 to 10 minutes, DNI Case disclosed with Attending Dr. Liset Luis PGY1 Disclaimer: This note was dictated by speech recognition and even though it was carefully revised there may still be minor errors in shell reprint operator due to voice recognition software. Attending Provider Attestation/Addendum I reviewed labs, imaging, EKG, home medications and prior available records. Face to face evaluation was performed by me. I have personally examined the patient and discussed assessment and plan with the IM team. I reviewed the resident note and agree with the plan with exceptions as below. Acute encephalopathy, resolved GI bleed Presyncope HFpEF EF 55% Atrial fibrillation with controlled ventricular rhythm ALEXEI on CKD CAD Rapid response was called for acute encephalopathy. Code stroke was activated. CT scan of the head is negative for acute intracranial pathologies. CTA of the head/neck showed no major vessel occlusion. Discussed the case with teleneurology: Ordered brain MRI: Showed large old occipital CVA but no new CVA. Rule out metabolic versus infectious etiologies. Status post EGD that showed no source of bleeding. Status post colonoscopy that showed polyps and diverticular disease. Repeat colonoscopy in 5 years Discussed with GI: Okay to resume Eliquis Continue p.o. Bumex. Outpatient follow-up with cardiology
--- NOTE | 2025-01-25 11:13 | PC.PT ---
Patient is safe to stand pivot transfer to a bedside commode with a FWW and 1 staff assist. RN made aware.
--- NOTE | 2025-01-25 11:52 | PC.NURSE ---
RN attempted to call pt x2 to obtain information about the pt surgical hx. pt needs an MRI and the surgical hx is needed before pt can have the MRI done. Will try to call pt again at a a later time.
--- NOTE | 2025-01-25 11:59 | PC.SS ---
Addendum entered by Glory Klein 01/25/25 16:04: SS followed up with spouse and she states she needs more time and will update tomorrow. Spoke to physician and they will d/c tomorrow. Patient does not need auth. if they choose SNF. Otherwise, patient can d/c home with HH Original Note: Follow up note: SS received a call from PT recommending short term rehab. SS contacted who states she wants to talk to remaining family members about this option. Patient was not able to ambulate during evaluation. Prior patient was only able to walk to the bathroom per . SS already sent out inquiries for sNF as an option as well as PASRR completed. SS will follow up with spouse.
--- NOTE | 2025-01-25 18:16 | PD.IMPROG ---
Documentation for date of: 01/25/25 Subjective Subjective Interval history: Hemoglobin hematocrit stable at 9.4 and 28.5 Exam Vital Signs Temp Pulse Resp BP Pulse Ox O2 Del Method O2 Flow Rate 97.2 F 82 19 105/79 95 Nasal Cannula 1 01/25/25 16:00 01/25/25 16:00 01/25/25 16:00 01/25/25 16:00 01/25/25 16:00 01/25/25 16:00 01/25/25 16:00 Objective Labs 01/25/25 04:19 01/25/25 04:19 Labs: Laboratory Results - last 24 hr 01/25/25 04:19 WBC 9.1 RBC 3.19 L Hgb 9.4 L Hct 28.5 L MCV 89 MCH 29.5 MCHC 33.0 RDW Std Deviation 43.8 Plt Count 316 Neut % (Auto) 63 Lymph % (Auto) 23 [place] % (Auto) 10 Eos % (Auto) 3 Baso % (Auto) 1 Neut # (Auto) 5.7 Lymph # (Auto) 2.1 [place] # (Auto) 0.9 H Eos # (Auto) 0.3 Baso # (Auto) 0.1 Immature Gran # (Auto) 0.03 H Absolute Nucleated RBC 0.00 Immature Gran % 0 Nucleated RBC % 0 Sodium 139 Potassium 4.0 Chloride 104 Carbon Dioxide 25.6 Anion Gap 9 BUN 17 Creatinine 1.1 Estim Creat Clear Calc 51.0 L eGFR > 60 BUN/Creatinine Ratio 15 Glucose 115 H Calculated Osmolality 280 Calcium 8.4 Corrected Calcium 8.6 Magnesium 2.0 Total Bilirubin 0.4 AST 13 ALT < 7 L Alkaline Phosphatase 66 Total Protein 5.8 Albumin 3.7 Globulin 2.1 L Albumin/Globulin Ratio 1.8 Impressions Impression: Gastritis Sigmoid colon polyp Relatively stable hemoglobin hematocrit Continue current management ABG Interpretation ABG results: 01/20/25 11:30 ABG pH 7.44 ABG pCO2 36 ABG pO2 99 ABG HCO3 24 ABG O2 Saturation 99 H ABG Base Excess 0 Assessment & Plan A&P Narrative # Occult GI bleeding # Acute posthemorrhagic anemia Plan Case discussed with the internal medicine team in the ER team Patient will be given 2 units of PRBCs Clear liquid diet up until midnight tonight N.p.o. after midnight except p.o. meds Consent obtained for fiberoptic esophagogastroduodenoscopy with possible therapeutic intervention possible biopsy under intravenous moderate sedation If EGD is negative we will consider doing a fiberoptic colonoscopy prior to discharge as there is a significant drop in hemoglobin hematocrit which was 12.3 and 36.7 on 12/21/2024 Other medical problems include Chronic atrial fibrillation decrease the Eliquis to 2.5 mg p.o. twice daily but continue the as patient already had a stroke before and the risk of stroke again which is much higher Coronary artery disease status post CABG Congestive heart failure systolic BPH CVA 2021 History of melanoma Thank you very much for the opportunity to participate in the care of this patient Time Spent With Patient Time: Total time spent is greater than 50% in coordination of care (as documented) at patient's floor/unit and/or counseling patient:
[2025-01-25] MEDS: DONEPEZIL HCL 5 MG TABLET 10 MG PO (20:40)
[2025-01-25] MEDS: ATORVASTATIN CALCIUM 20 MG TABLET PO (20:40)
[2025-01-26] VITALS (9 sets, daily range): BP systolic 112–142; BP diastolic 55–90; PULSE 63–111; RESP 14–23; TEMP 36.3–37; O2SAT 95–97; BMI 36.8
[2025-01-26] MEDS: ACETYLCYSTEINE SOL 20% 4 ML NEBU 3 ML INH (00:58)
[2025-01-26] MEDS: ALBUTEROL/IPRATROPIUM (Duoneb) RT SOL 3 ML NEBU INH (00:59)
[2025-01-26] MEDS: PREGABALIN 50 MG CAPSULE PO ×2 (05:26→13:57)
[2025-01-26 06:34] LABS: Basophils # (Auto) 0.1 Thou/mm3 (0.0-0.2); Basophils % (Auto) 1 % (0-2.5); Eosinophils # (Auto) 0.2 Thou/mm3 (0.0-0.5); Eosinophils % (Auto) 2 % (0-10); Hematocrit 28.3 % (41.0-53.0); Hemoglobin 9.2 g/dL (13.5-16.0); Immature Granulocytes % (Auto) 0 % (0-0); Immature Granulocytes Auto 0.04 Thou/mm3 (0.00-0.00); Lymphocytes # (Auto) 2.2 Thou/mm3 (1.0-4.8); Lymphocytes % (Auto) 24 % (10-50); Mean Corpuscular HGB Conc 32.5 g/dl (31.0-37.0); Mean Corpuscular Hemoglobin 29.6 pg (25.0-35.0); Mean Corpuscular Volume 91 fL (80-100); Monocytes # (Auto) 0.9 Thou/mm3 (0.0-0.8); Monocytes % (Auto) 10 % (0-12); Neutrophils # (Auto) 5.6 Thou/mm3 (1.8-7.7); Neutrophils % (Auto) 62 % (37-80); Nucleated Red Blood Cell % 0 /100 WBC (0); Platelet Count 267 Thou/mm3 (140-440); RDW Standard Deviation 44.1 fL (35.1-43.9); Red Blood Count 3.11 Miln/mm3 (4.50-5.90)
[2025-01-26 06:58] LABS: Alanine Aminotransferase 12 U/L (10-49); Albumin, Serum 3.6 gm/dL (3.4-4.8); Albumin/Globulin Ratio 1.8 (1.2-2.2); Alkaline Phosphatase 67 U/L (46-116); Anion Gap 8 (7-16); Aspartate Amino Transferase 23 U/L (0-34); BUN/Creatinine Ratio 17 Ratio (12-20); Bilirubin,Total 0.3 mg/dL (0.3-1.2); Blood Urea Nitrogen 17 mg/dL (9-23); Calcium (Corrected) 8.3 mg/dL (8.5-10.1); Carbon Dioxide 28.9 mMol/L (20.0-31.0); Chloride 103 mMol/L (98-107); Glucose 141 mg/dL (74-106); Magnesium 1.8 mg/dL (1.6-2.6); Osmolality,Calculated 282 (275-295); Potassium 3.6 mMol/L (3.4-5.1); Sodium 140 mMol/L (136-145); Total Protein 5.6 gm/dL (5.7-8.2); eGFR > 60 See Note
[2025-01-26] MEDS: POTASSIUM CHLORIDE 20 mEq TABCR 40 MEQ PO (07:51)
[2025-01-26] MEDS: Magnesium Sulfate 2 GM Ivpb 2 GM/50 ML BAG IV (07:52)
[2025-01-26] MEDS: COLCHICINE 0.6 MG TABLET PO (07:53)
[2025-01-26] MEDS: FINASTERIDE 5 MG TABLET PO (07:53)
[2025-01-26] MEDS: APIXABAN 2.5 MG TABLET PO (07:54)
[2025-01-26] MEDS: PANTOPRAZOLE 40 MG TABLET PO (07:54)
[2025-01-26] MEDS: TAMSULOSIN HCL 0.4 MG CAPSULE PO (07:54)
[2025-01-26] MEDS: DILTIAZEM CD 120 MG CAPCR PO (07:54)
[2025-01-26] MEDS: ASPIRIN EC 81 MG TABEC PO (07:54)
--- NOTE | 2025-01-26 11:20 | ESDS_ITS ---
Planned Discharge Date 01/26/25 DS: Providers Provider Date of admission: 01/20/25 15:41 Primary care physician: Physician No Primary/Family Admitting Provider: Richie Cordero DO Attending Provider on Admission: Wale Hutchins MD Consults: 01/20/25 12:59 Consult to Gastroenterology Stat Comment: Consulting Provider: Elisabeth Gayle 01/24/25 13:18 Referral Physical Therapy Routine Comment: Physician Instructions: 01/24/25 13:19 Referral Speech Therapy Routine Comment: Attending Provider on DC: Wale Hutchins MD Discharging Provider: Wale Hutchins MD DS: Diagnosis Problem List Completed Was Problem List Reviewed/Reconciled?: Yes Hospital Course Hospital Course Hospital course: 84-year-old male with past medical history significant for chronic A-fib on Eliquis, CAD status post CABG, CHF, [id number]-oyoreonaw type 2 diabetes, BPH, melanoma, hearing loss, dementia, history of stroke in 2021, right retinal tear surgery, and gout admitted for presyncope likely secondary to GI bleed. Patient initially came in afebrile and mildly hypertensive. Initially his hemoglobin was 7.3 from his baseline around 12.3. Patient was transfused 2 units of PRBC throughout the hospital stay and his hemoglobin remained stable since then in the range of around 10-9. Patient had a positive fecal occult blood therefore GI was consulted and did EGD which did not show any identifiable source of bleeding therefore colonoscopy was also done to rule out any lower GI bleed. The colonoscopy revealed diverticulosis, but no bleeding. Patient had an echocardiogram done also during the hospital stay that showed an EF of 55%. The patient also developed acute gout flareup in which his uric acid was around 9.2 therefore he was started on colchicine which has significantly improved the patient's gout flareup and pain. Patient's discharge was delayed given that stroke alert was initiated after rapid response was called due to change in patient's mental status and ability to respond adequately. Teleneurology advised to get MRI as head CT was negative and head CT was also negative. Brain MRI did not show any acute processes at this time and patient was back to his baseline the day afterwards. At the time of discharge patient was stable enough to be discharged to a halfway facility as recommended by physical therapy. Discharge plan: Please follow-up with your primary care physician within 1 week upon discharge Please continue taking colchicine 0.6 mg daily and to follow-up with primary care physician to see if pain has subsided then it can be discontinued. Please follow-up with primary care physician to possibly refer you to a GI specialist for possible capsule endoscopy to see if source of bleeding can be identified. Please continue taking all home medications as prescribed We held your night time 1mg bumetadine and continued your 2mg bumetadine daily Please come back to the ER if symptoms persist or worsen. Problem list: #Presyncope #Diverticulosis #Gout flareup #ALEXEI, resolved #Acute decompensated Heart Failure Exacerbation #HFpEF (55% 01/2025) #CAD s/p CABG #History of CVA in 2021 #Chronic atrial fibrillation #Type 2 diabetes not on chronic insulin therapy #Diabetic neuropathy #Dementia-stable #BPH Case disclosed with Attending Dr. Liset Luis PGY1 Disclaimer: This note was dictated by speech recognition and even though it was carefully revised there may still be minor errors in podiatric medicine doctor due to voice recognition software. Status at Discharge Overall status at discharge: patient is progressing back to baseline Time Spent with Patient Time attestation: Total time spent providing and/or coordinating discharge services:>35 min Time spent: Greater than 30 minutes Exam Vital Signs Temp Pulse Resp BP Pulse Ox O2 Del Method O2 Flow Rate 97.6 F 74 16 114/84 97 Nasal Cannula 2 01/26/25 08:00 01/26/25 08:00 01/26/25 08:00 01/26/25 08:00 01/26/25 08:00 01/26/25 08:00 01/26/25 08:00 Narrative Exam General: A/O x2 (not to time), no acute distress Eyes: PERRL, EOMI. Anicteric, vision grossly intact. Ears: No ear pain, no ear discharge, Hearing mildly impaired. Nose: No nasal discharge. Mouth/Throat: Moist mucous membranes, no redness, no lesions. Neck: Neck supple, non-tender, no cervical lymphadenopathy. Lungs: Upper airway congestion improved, clear breath sounds throughout, No accessory muscle use. Cardio: Normal S1/S2, regular rhythm, no murmurs, no JVD Abdomen: Soft, non-tender but distended, no palpable masses, peristalsis present, no guarding or rebound. Extremities: Symmetrical, no significant deformities, trace peripheral edema , R foot tenderness improving, peripheral pulses presents. Skin: No rashes, no lesions, warm to touch. Neuro: No focal neurological deficits. motor and sensory intact Discharge Plan Plan Patient Disposition: Xfer Skilled Nsg Fac (SNF) Care Plan Goals: Please follow-up with your primary care physician within 1 week upon discharge Please continue taking colchicine 0.6 mg daily and to follow-up with primary care physician to see if pain has subsided then it can be discontinued. Please follow-up with primary care physician to possibly refer you to a GI specialist for possible capsule endoscopy to see if source of bleeding can be identified. Please continue taking all home medications as prescribed We held your night time 1mg bumetadine and continued your 2mg bumetadine daily Please come back to the ER if symptoms persist or worsen. Prescriptions/Referrals Prescriptions/Med Rec: New tamsulosin 0.4 mg Capsule 0.4 mg PO QDAY 30 Days Qty: 30 0RF colchicine 0.6 mg Tablet 0.6 mg PO QDAY 7 Days Qty: 7 0RF Continued simvastatin [Zocor] 40 MG tablet 40 mg PO HS Qty: 0 finasteride [Proscar] 5 MG tablet 5 mg PO QDAY Qty: 0 Spiriva Respimat 2.5 mcg/actuation Mist 2 puff INHALATION QDAY Qty: 0 budesonide [Pulmicort] 1 mg/2 mL Suspension For Nebulization 2 ml INHALATION BID PRN (Reason: sob) spironolactone 50 mg tablet 50 mg PO QDAY Eliquis 5 mg tablet 5 mg PO BID bumetanide 2 MG tablet 2 mg PO DAILY albuterol sulfate [ProAir HFA] 90 mcg/actuation HFA aerosol inhaler 1 - 2 puff INHALATION Q4H PRN (Reason: sob) aspirin 81 mg capsule 81 mg PO QDAY Qty: 30 0RF gabapentin 100 mg capsule 200 mg PO Q12H metformin 500 mg tablet 500 mg PO BID diltiazem HCl 120 mg capsule,extended release 24hr 120 mg PO DAILY Linzess 72 mcg capsule 72 mcg PO QAM donepezil 10 mg tablet 5 mg PO DAILY Ozempic 1 mg/dose (4 mg/3 mL) pen injector 1 mg SUBCUT .QWEEKLY Rx Instructions: EVERY TUESDAY gabapentin 100 mg capsule 300 mg PO .AT NOON Held bumetanide 1 mg tablet 1 mg PO .PM Hold Instructions: Resume on 01/31/25. Hold until seen by primary care physician Referrals: No Primary/Family,Physician [Primary Care Provider] - Patient/Caregiver Discharge Instructions Other Discharge Activity Instructions:: Please follow-up with your primary care physician within 1 week upon discharge Please continue taking colchicine 0.6 mg daily and to follow-up with primary car e physician to see if pain has subsided then it can be discontinued. Please follow-up with primary care physician to possibly refer you to a GI specialist for possible capsule endoscopy to see if source of bleeding can be identified. Please continue taking all home medications as prescribed We held your night time 1mg bumetadine and continued your 2mg bumetadine daily Please come back to the ER if symptoms persist or worsen. Education Materials: Diverticulosis Diverticulitis, What Is Gout?, Eating to Prevent Gout Print Language: Sammarinese Stand Alone Forms: [employer] Award Info., Patient Portal Info Letter Discharge Order Discharge Orders: Discharge (Routine); Ordered 01/26/25 Ordered By: Rip Luis Quality Discharge Quality Measures VTE prophylaxis MD Attestestation MD Attestation I reviewed labs, imaging, EKG, home medications and prior available records. Face to face evaluation was performed by me. I have personally examined the patient and discussed assessment and plan with the IM team. I reviewed the resident note and agree with the plan with exceptions as below. Acute encephalopathy, likely hypoactive delirium GI bleed Presyncope HFpEF EF 55% Atrial fibrillation with controlled ventricular rhythm ALEXEI on CKD CAD Rapid response was called for acute encephalopathy. Code stroke was activated. CT scan of the head is negative for acute intracranial pathologies. CTA of the head/neck showed no major vessel occlusion. Discussed the case with teleneurology: Ordered brain MRI: Showed large old occipital CVA but no new CVA. Discussed with patient and : He will be at risk of delirium given his baseline dementia, polypharmacy, and sleep deprivation. Status post EGD that showed no source of bleeding. Status post colonoscopy that showed polyps and diverticular disease. Repeat colonoscopy in 5 years Discussed with GI: Okay to resume Eliquis Continue p.o. Bumex. Outpatient follow-up with cardiology Time spent is 40 minutes. More than 50% of the time was spent on patient education and coordination of care.
[2025-01-26] MEDS: INSULIN LISPRO (AdmeLOG) 1 UNIT/0.01 ML UNIT SC (11:26)
--- NOTE | 2025-01-26 13:12 | PC.SS ---
[employer] (CLAIR) Deidre informed by E Resident Dr. Bishop Luis that patient was ready for discharge. Due to patient's diagnosis of dementia, CLAIR contacted patient's , Any. CLAIR contacted Any via telephone call. CLAIR introduced self, role and reason for call. CLAIR explained that patient was ready for discharge, pending a safe discharge plan. Any reported that after thinking about her options, she has decided for patient to attend short-term rehabilitation at [facility]. CLAIR contacted [facility] and spoke to Admission Coordinator whom accepted patient on 01/26/2025. CLAIR scheduled EMS transportation for 1500. CLAIR notified patient's , Any and bedside RN-Libby.
--- NOTE | 2025-01-26 14:30 | EVENTNT_ITS ---
Documentation for date of: 01/26/25 Event Note Event Note: Rapid response was called today around 12:45 p.m. due to change in patient's mental status. This was after the patient was told that he was going to be discharged back to the nursing home facility. Patient's was at bedside. At this time patient vitals were all stable and patient was most likely having some sundowning. It was explained to the patient's who was at bedside thoroughly that this was most likely due to patient having some hospital- acquired delirium as well as patient's underlying dementia. Patient's stated that these episodes happen at home. I reassured the patient's that patient is will need to be having redirection and will be having to be placed on a room that's will be signed under nicely he can get proper sleep. At the end of the rapid response called patient's was calmer and patient was getting back to his baseline. Case discussed with my attending Dr. Liset Luis, PGY1
== END 2025-01-26 16:40 | disposition skilled nursing facility (03) | DRG 377 ==
LOC: SERX 14:25 → SERHOLD 16:13 → S2NX 01-21 04:21
PROVIDERS: Specialist; Student in an Organized Health Care Education/Training Program; Admitting Provider Student in an Organized Health Care Education/Training Program; Emergency Provider Family Medicine; Visit Provider Student in an Organized Health Care Education/Training Program
PROC: 0DJ08ZZ Inspection of Upper Intestinal Tract, Via Natural or Artificial Opening Endoscopic (ICD-10-PCS; CPT 43239; principal; 2025-01-21 15:30)
PROC: 0DJD8ZZ Inspection of Lower Intestinal Tract, Via Natural or Artificial Opening Endoscopic (ICD-10-PCS; CPT 45378; principal; 2025-01-23 15:30)
DX: K57.31 Diverticulosis of large intestine without perforation or abscess with bleeding (principal); I50.33 Acute on chronic diastolic (congestive) heart failure; D62 Acute posthemorrhagic anemia; E87.20 Acidosis, unspecified; I48.20 Chronic atrial fibrillation, unspecified; N17.9 Acute kidney failure, unspecified; F05 Delirium due to known physiological condition; G93.40 Encephalopathy, unspecified; I13.0 Hypertensive heart and chronic kidney disease with heart failure and stage 1 through stage 4 chronic kidney disease, or unspecified chronic kidney disease; I25.10 Atherosclerotic heart disease of native coronary artery without angina pectoris; N40.0 Benign prostatic hyperplasia without lower urinary tract symptoms; D12.5 Benign neoplasm of sigmoid colon; K64.9 Unspecified hemorrhoids; K29.71 Gastritis, unspecified, with bleeding; I45.10 Unspecified right bundle-branch block; F03.90 Unspecified dementia, unspecified severity, without behavioral disturbance, psychotic disturbance, mood disturbance, and anxiety; E11.22 Type 2 diabetes mellitus with diabetic chronic kidney disease; H91.90 Unspecified hearing loss, unspecified ear; I08.1 Rheumatic disorders of both mitral and tricuspid valves; M10.9 Gout, unspecified; N18.9 Chronic kidney disease, unspecified; E11.40 Type 2 diabetes mellitus with diabetic neuropathy, unspecified; Z66 Do not resuscitate; Z86.73 Personal history of transient ischemic attack (TIA), and cerebral infarction without residual deficits; Z95.1 Presence of aortocoronary bypass graft; Z85.820 Personal history of malignant melanoma of skin; Z79.01 Long term (current) use of anticoagulants; Z79.899 Other long term (current) drug therapy; Z79.51 Long term (current) use of inhaled steroids; Z79.82 Long term (current) use of aspirin; Z79.85 Long-term (current) use of injectable non-insulin antidiabetic drugs; Z87.891 Personal history of nicotine dependence; Z79.84 Long term (current) use of oral hypoglycemic drugs
CPT/HCPCS: 36415; 36430; 36600; 70450; 70496; 70498; 70551; 71045; 72125; 74018; 80053; 80061; 80307; 81001; 82270; 82550; 82803; 83036; 83605; 83735; 83880; 84100; 84145; 84443; 84484; 84550; 85014; 85018; 85025; 85610; 85730; 86850; 86900; 86901; 86923; 87040; 87400; 87811; 92610; 93005; 93306; 94640; 94667; 96374; 97162; 99285; A4649; A9270; J1815; J2250; J2270; J2470; J3010; J3475; P9016; Q9967

== ENCOUNTER 2025-02-07 09:11 | Inpatient (IN) | payer MEDICARE, OTHER, SELFPAY ==
[2025-02-07] VITALS (10 sets, daily range): BP systolic 107–117; BP diastolic 52–84; PULSE 84–110; RESP 16–25; TEMP 36.3–38.1; O2SAT 91–100; BMI 36.6
--- NOTE | 2025-02-07 09:33 | EKG_ITS ---
[facility] Test Date: 2025-02-07 Pat Name: DOROTEO CAI Department: Room: - Gender: Male Palliative Nurse: : 1940 Requested By: Julia Mcfarland Order Number: [id number] Reading MD: Julia Mcfarland Measurements Intervals [place] Rate: 102 P: MD: QRS: -45 QRSD: 148 T: 29 QT: 352 QTc: 459 Interpretive Statements ATRIAL FIBRILLATION WITH RAPID VENTRICULAR RESPONSE WITH ABERRANT CONDUCTION OR VENTRICULAR PREMATURE COMPLEXES INDETERMINATE AXIS RIGHT BUNDLE BRANCH BLOCK [120+ ms QRS DURATION, UPRIGHT V1, 40+ ms S IN I/aVL/V4/V5/V6] LEFT ANTERIOR FASCICULAR BLOCK [QRS AXIS <= -45, QR IN I, RS IN II] Compared to ECG 01/24/2025 12:12:00 Ventricular premature complex(es) now present Aberrant conduction of supraventricular beat(s) now present Left anterior fascicular block now present Left posterior fascicular block no longer present /store/S0/[id number]/ecg/[id number].pdf
--- NOTE | 2025-02-07 09:43 | EDNOTE_ITS ---
<Statement entered by Julia Craig MD - 02/19/25 02:46> I, Julia Craig MD, have reviewed the history, exam, and assessment of the patient. I have evaluated the patient independently and agree with the plan of care documented by [ ]. All diagnostic studies were reviewed and discussed. I confirm the diagnosis as documented by the Resident. I was present during the Medical Decision Making for this patient. The patient's plan of care was created between myself and the Resident and consistent with our discussion of the patient's case. 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 The patient was found hypoxic in his facility, and was confabulating and was brought to the hospital. The patient denies any symptoms. Of note, pt is DNR and is at baseline 2L home O2. Related Data Home Medications ?Medication ?Instructions ?Recorded ?Confirmed finasteride 5 mg tablet (Proscar) 5 mg PO QDAY #0 tabs 05/13/15 01/22/25 simvastatin 40 mg tablet (Zocor) 40 mg PO HS #0 tabs 0 05/13/15 01/22/25 tiotropium bromide 2.5 2 puff inhalation QDAY #0 pu ffs 07/26/16 01/22/25 mcg/actuation mist for inhalation (Spiriva Respimat) budesonide 1 mg/2 mL suspension 2 ml inhalation BID [place] N sob 09/30/18 01/22/25 for nebulization (Pulmicort) apixaban 5 mg tablet (Eliquis) 5 mg PO BID 12/02/21 spironolactone 50 mg tablet 50 mg PO QDAY 12/02/21 albuterol sulfate 90 mcg/actuation 1 - 2 puff inhalati on Q4H PRN sob 06/24/22 01/22/25 aerosol inhaler (ProAir HFA) bumetanide 2 mg tablet 2 mg PO DAILY 06/24/2201/22 bumetanide 1 mg tablet 1 mg PO .PM 01/22/25 5 Held on 01/24/25. Instructions: Resume on 01/31/25. Hold until seen by primary care physician diltiazem HCl 120 mg 120 mg PO DAILY 01/22/25 capsule,extended release 24 hr donepezil 10 mg tablet 5 mg PO DAILY 01/22/2501/22 gabapentin 100 mg capsule 200 mg PO Q12H 01/22/2501/10 gabapentin 100 mg capsule 300 mg PO .AT NOON 01/22/25 01/22/25 linaclotide 72 mcg capsule 72 mcg PO QAM 01/22/2501/10 (Linzess) metformin 500 mg tablet 500 mg PO BID 01/22/2501/22 semaglutide 1 mg/dose (4 mg/3 mL) 1 mg subcut .QWEEKLY 01/22/25 01/22/25 subcutaneous pen injector (Ozempic) Previous Rx's ?Medication ?Instructions ?Recorded aspirin 81 mg capsule 81 mg PO QDAY #30 caps 06/26 tamsulosin 0.4 mg capsule 0.4 mg PO QDAY 30 days #30 c aps 01/24/25 Allergies Allergy/AdvReac Type Severity Reaction Status Date / Time No Known Allergies Allergy Verified 02/07/25 09:22 Review of Systems Review of Systems ROS Unobtainable: unobtainable due to mental status ED Exam Narrative Physical exam: General: Elderly, obese gentleman, no acute distress, Alert and Oriented to place and himself only. HEENT: Mildly dry mucous membranes, oropharynx clear Neck: Supple, No masses, No JVD CVS: Tachycardic, No murmurs, rubs or gallops Lungs: Rhonchi, wheezing throughout the lung field, no crackles appreciated, saturating 96% on 6L NC Abd: Soft, NT/ND, +BS, no organomegaly Ext: No edema, warm and well perfused Skin: No rash Psych: Confused Course Quality Measures none Orders Category Date Time Status Bedside Influenza A&B Antigen Test NOW Care 02/07/25 12:[address] Screening NOW Care 02/07/25 15:44 Active Second Vp Hr Assessment NOW Care 02/07/25 09:45 Active EKG (ED ONLY) *Do not use* NOW Care 02/07/25 09:[address] abdomen pelvis w con Stat Exams 02/07/25 15:[address] head/brain wo con Stat Exams 02/07/25 15:06 Taken EKG (ED Only) Stat Exams 02/07/25 09:33 Draft EKG (ED Only) Stat Exams 02/07/25 09:45 Stop Req XR abdomen flat and uprght Stat Exams 02/07/25 15:06 Taken XR chest 1V portable Stat Exams 02/07/25 09:47 Completed ABG [Arterial Blood Gas] Stat Lab 02/07/25 13:04 Completed B-Type Natriuretic Peptide Stat Lab 02/07/25 09:30 Completed Blood Culture (Lab) Stat Lab 02/07/25 10:20 Received CBC Stat Lab 02/07/25 09:30 Completed COVID-19 Antigen (In-House) Stat Lab 02/07/25 12:25 Completed Comprehensive Metabolic Panel Stat Lab 02/07/25 09:30 Completed D-Dimer Stat Lab 02/07/25 09:30 Completed Drug Screen,Urine Stat Lab 02/07/25 10:00 Completed Lactic Acid [Lactate (Lactic Acid)] Stat Lab 02/07/25 12:40 Completed Magnesium Stat Lab 02/07/25 09:30 Completed Partial Thromboplastin Time Stat Lab 02/07/25 09:30 Completed Procalcitonin Stat Lab 02/07/25 12:40 Completed Prothrombin Time with INR Stat Lab 02/07/25 09:30 Completed Troponin I Stat Lab 02/07/25 09:30 Completed Urinalysis Stat Lab 02/07/25 09:47 Completed Urine Culture Stat Lab 02/07/25 09:51 Received Albuterol/Ipratr Rt Joselyn [Duoneb Rt Joselyn] Med 02/07/25 09:47 Discontinued 3 ml INH X1 ONE Doxycycline Inj [Vibramycin Inj] 100 mg Med 02/07/25 09:47 Discontinued Sodium Chloride 0.9% (Pop) [NS 0.9% mini bag] 100 ml IV X1 Magnesium Sulfate 2 GM Ivpb [Magnesium Sulfate Ivpb] Med 02/07/25 09:55 Discontinued 2 gm in 50 ml IV X1 MethylPREDNISolone.* [SoluMEDROL Inj] Med 02/07/25 14:06 Discontinued 125 mg IVP X1 ONE Sodium Chloride 0.9% 500 ml [Ns] 500 ml Med 02/07/25 09:49 Discontinued IV 500 mls/hr cefTRIAXone/D5w 1gm IV premix [Rocephin/D5w 1gm IV Med 02/07/25 09:48 Discontinued premix] 1 gm in 50 ml IV X1 Oxygen Delivery NOW RT 02/07/25 09:45 Active Vital Signs Vital signs: Vital Signs Temperature 100.5 F H 02/07/25 09:18 Pulse Rate 110 H 02/07/25 09:18 Respiratory Rate 17 02/07/25 09:18 Blood Pressure 112/84 02/07/25 09:18 Pulse Oximetry (%) 98 02/07/25 09:18 Oxygen Delivery Method Nasal Cannula 02/07/25 09:18 Oxygen Flow Rate 6 02/07/25 09:18 Shortness of Breath / Dyspnea MDM Narrative MDM Narrative:: The patient is an 84-year-old gentleman with past medical history of 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 The patient was found hypoxic in his facility, and was confabulating and was brought to the hospital. The patient denies any symptoms. Of note, pt is DNR and is at baseline 2L home O2. In the ED, his vitals were BP 102/84, pulse 110, temperature 100.5, saturating 98% on 6 L NC. Labs revealed white count 5.4, hemoglobin 10.1, ABG revealed PCO50, bicarb 29, BUN 30, GFR 54, blood sugar 151, corrected calcium 8.3, UA negative for UTI, U-Tox negative, COVID and influenza negative, chest x-ray revealed left lower lobe pneumonia. EKG revealed A-fib with heart rate 102, QTc 459. The patient's management plan was discussed with my attending physician Dr. MD Rambo Craig MD, PGY2 Patient data External records reviewed:: [facility] previous records Clinical information provided by:: patient, EMS and family Social determinants that could affect healthcare access:: none Patient has the following chronic illnesses:: See above How is presenting disease/condition affected by chronic disease/condition?: exacerbated by Evaluation data The following diagnostics were reviewed and interpreted by me:: lab results, radiology exam(s) and EKG tracing(s) Lab and/or radiology exams considered but not ordered:: None Interpretation Summary: See above Medications / Prescriptions Medications or Prescriptions considered but not ordered:: None Medication administrations:: Medication Administration History Discontinued Medications Albuterol/Ipratropium (Albuterol/Ipratropium (Duoneb) Rt Joselyn 3 Ml Nebu) 3 ml INH X1 ONE Stop: 02/07/25 09:48 Last Admin: 02/07/25 10:18 Dose: 3 ml Documented By: GERARDO Ceftriaxone Sodium/Dextrose (Rocephin/D5w 1gm Iv Premix) 1 gm in 50 mls @ 100 mls/hr IV X1 ONE Stop: 02/07/25 10:17 Last Infusion: 02/07/25 11:16 Dose: Infused Documented By: Admin: 02/07/25 10:46 Dose: 100 mls/hr Documented By: DHIRAJ Doxycycline Hyclate 100 mg/ (Sodium Chloride) 100 mls @ 100 mls/hr IV X1 ONE Stop: 02/07/25 10:46 Last Infusion: 02/07/25 11:50 Dose: Infused Documented By: Admin: 02/07/25 10:50 Dose: 100 mls/hr Documented By: DHIRAJ Sodium Chloride (Ns) 500 mls @ 500 mls/hr IV .Q1H ONE Stop: 02/07/25 10:48 Last Infusion: 02/07/25 11:50 Dose: Infused Documented By: Admin: 02/07/25 10:50 Dose: 500 mls/hr Documented By: DHIRAJ Magnesium Sulfate (Magnesium Sulfate Ivpb) 2 gm in 50 mls @ 25 mls/hr IV X1 ONE Stop: 02/07/25 11:54 Last Infusion: 02/07/25 13:47 Dose: Infused Documented By: Infusion: 02/07/25 11:57 Dose: 25 mls/hr Documented By: Infusion: 02/07/25 10:49 Dose: 0 mls/hr Documented By: Admin: 02/07/25 10:39 Dose: 25 mls/hr Documented By: TM Methylprednisolone Sodium Succinate (Methylprednisolone Sod Succ 62.5 Mg/Ml 2ml Vial) 125 mg IVP X1 ONE Stop: 02/07/25 14:07 Last Admin: 02/07/25 15:15 Dose: 125 mg Documented By: TM See above Consultations Consultation(s) initiated? (list below): Yes Consultation #1 (Physician, Specialty, Details): Hospitalist team Dr. Ware, DO Time: 14:03 Diagnosis Shortness of Breath Differential Diagnosis: congestive heart failure, community acquired pneumonia and asthma with exacerbation Most likely diagnosis given after review of the tests above:: Asthma exacerbation 2/2 CAP Admission Indicated Admission indicated?: indicated Explain why admission is indicated or not indicated:: [facility] Admission Request Was there a request for admission?: Yes Admission Attestation Admission request attestation: Discussed case with Dr. Lilly MD, PGY2 from Hospitalist service regarding admission. Discussed patients ED course, exam findings, labs, and radiology results. The Hospitalist agrees to accept the patient for admission. Disposition Plan Disposition Plan: Admit Discharge Plan Plan Patient Disposition: Admit Acute Care w/in Hospital Prescriptions/Referrals Prescriptions/Med Rec: No Action simvastatin [Zocor] 40 MG tablet 40 mg PO HS Qty: 0 finasteride [Proscar] 5 MG tablet 5 mg PO QDAY Qty: 0 Spiriva Respimat 2.5 mcg/actuation Mist 2 puff INHALATION QDAY Qty: 0 budesonide [Pulmicort] 1 mg/2 mL Suspension For Nebulization 2 ml INHALATION BID PRN (Reason: sob) spironolactone 50 mg tablet 50 mg PO QDAY Eliquis 5 mg tablet 5 mg PO BID bumetanide 2 MG tablet 2 mg PO DAILY albuterol sulfate [ProAir HFA] 90 mcg/actuation HFA aerosol inhaler 1 - 2 puff INHALATION Q4H PRN (Reason: sob) aspirin 81 mg capsule 81 mg PO QDAY Qty: 30 0RF gabapentin 100 mg capsule 200 mg PO Q12H metformin 500 mg tablet 500 mg PO BID diltiazem HCl 120 mg capsule,extended release 24hr 120 mg PO DAILY Linzess 72 mcg capsule 72 mcg PO QAM bumetanide 1 mg tablet 1 mg PO .PM donepezil 10 mg tablet 5 mg PO DAILY Ozempic 1 mg/dose (4 mg/3 mL) pen injector 1 mg SUBCUT .QWEEKLY Rx Instructions: EVERY TUESDAY gabapentin 100 mg capsule 300 mg PO .AT NOON tamsulosin 0.4 mg Capsule 0.4 mg PO QDAY 30 Days Qty: 30 0RF Referrals: Emilio Barton MD [Primary Care Provider] - In 1 week Problem List Clinical Impression: Acute and chronic respiratory failure with hypoxia, Acute exacerbation of chronic obstructive pulmonary disease (COPD), Community acquired pneumonia Patient/Caregiver Discharge Instructions Print Language: Occitan Stand Alone Forms: [facility] Award Info., Patient Portal Info Letter
--- NOTE | 2025-02-07 09:47 | XR_ITS ---
Examination: AP chest single view Technique one AP portable upright chest single view Date and time: February 07, 2025 1003 hours Comparison 04/26/2025 INDICATIONS: Shortness of breath beginning 2 days ago. FINDINGS: Early pneumonia left base obscuring detail left hemidiaphragm Minor prominence left ventricle Median sternotomy wires No pulmonary edema Right shoulder arthroplasty IMPRESSION: Early pneumonia left base
--- NOTE | 2025-02-07 09:51 | PC.NURSE ---
PT MERCEDEZ FROM [facility] FOR SOB. EMS ADMINISTERED 2 BREATHING TREATMENTS PRIOR TO ARRIVAL. PT IS [employer] [facility] AT BASELINE BELIEVES IT IS 2004 AND IVELISSE IS THE PRESIDENT, HAS DEMENTIA AND SUNDOWNS PER AT BEDSIDE. PT DENIES ANY PAIN OR DISCOMFORT AT THIS TIME. PT WALKS W/WALKER AT BASELINE HOWEVER AT FACILITY NEEDS ADDITIONAL ASSISTANCE. PT WAS CONT OF URINE HERE UPON ARRIVAL, URINE SAMPLE WAS COLLECTED. REMAINS AT BEDSIDE ATTENTIVE TO PT. CALL HERBERT IN REACH.
[2025-02-07 10:05] LABS: Collection Type, Urine Clean Catch; RBC,Urine 0 /hpf (0-3); Squamous Epithelial Cell,Urine 0 /hpf (0-5)
[2025-02-07 10:06] LABS: Basophils % (Auto) 1 % (0-2.5); Eosinophils # (Auto) 0.1 Thou/mm3 (0.0-0.5); Eosinophils % (Auto) 2 % (0-10); Hematocrit 30.5 % (41.0-53.0); Hemoglobin 10.1 g/dL (13.5-16.0); Immature Granulocytes % (Auto) 0 % (0-0); Immature Granulocytes Auto 0.01 Thou/mm3 (0.00-0.00); Lymphocytes # (Auto) 1.7 Thou/mm3 (1.0-4.8); Lymphocytes % (Auto) 31 % (10-50); Mean Corpuscular HGB Conc 33.1 g/dl (31.0-37.0); Mean Corpuscular Hemoglobin 29.3 pg (25.0-35.0); Mean Corpuscular Volume 88 fL (80-100); Monocytes % (Auto) 19 % (0-12); Neutrophils # (Auto) 2.5 Thou/mm3 (1.8-7.7); Neutrophils % (Auto) 47 % (37-80); Nucleated Red Blood Cell % 0 /100 WBC (0); Platelet Count 332 Thou/mm3 (140-440); RDW Standard Deviation 45.2 fL (35.1-43.9); Red Blood Count 3.45 Miln/mm3 (4.50-5.90); White Blood Count 5.4 Thou/mm3 (3.8-10.6)
[2025-02-07 10:14] LABS: Bilirubin,Urine Negative (Negative); Blood,Urine Negative (Negative); Clarity,Urine Clear (Clear/Hazy); Color,Urine Lt-Yellow (Lt Yel-Yel); Glucose, Urine Negative (Negative); Hyaline Casts,Urine < 1 /hpf (0-1); Ketones,Urine Negative (Negative); Leukocyte Esterase,Urine Negative (Negative); Nitrite,Urine Negative (Negative); Protein,Urine Negative (Neg - Trace); Specific Gravity,Urine 1.013 (1.001-1.035); Urobilinogen,Urine Negative mg/dL (0.0-1.0); WBC,Urine < 1 /hpf (0-5)
[2025-02-07] MEDS: ALBUTEROL/IPRATROPIUM (Duoneb) RT SOL 3 ML NEBU INH ×2 (10:18→19:08)
[2025-02-07 10:22] LABS: INR 1.1 (0.9-1.3); Partial Thromboplastin Time 29.9 Seconds (22.0-36.0)
[2025-02-07 10:23] LABS: B-Type Natriuretic Peptide 92 pg/mL (0-100)
--- NOTE | 2025-02-07 10:27 | PC.NURSE ---
CALLED LAB AT THIS TIME TO FIND OUT ABOUT BC SO ABX CAN BE STARTED PT IS A SEPSIS ALERT.
[2025-02-07 10:28] LABS: Alanine Aminotransferase 19 U/L (10-49); Albumin, Serum 4.1 gm/dL (3.4-4.8); Albumin/Globulin Ratio 1.7 (1.2-2.2); Alkaline Phosphatase 64 U/L (46-116); Anion Gap 12 (7-16); Aspartate Amino Transferase 22 U/L (0-34); BUN/Creatinine Ratio 23 Ratio (12-20); Bilirubin,Total 0.3 mg/dL (0.3-1.2); Blood Urea Nitrogen 30 mg/dL (9-23); Calcium 8.3 mg/dL (8.3-10.6); Calcium (Corrected) 8.3 mg/dL (8.5-10.1); Chloride 99 mMol/L (98-107); Creatinine (Component) 1.3 mg/dL (0.6-1.3); Estimated Creatinine Clearance 42.8 mL/min (>60); Globulin 2.4 gm/dL (2.3-3.5); Glucose 151 mg/dL (74-106); Magnesium 1.9 mg/dL (1.6-2.6); Osmolality,Calculated 288 (275-295); Potassium 3.5 mMol/L (3.4-5.1); Sodium 140 mMol/L (136-145); Total Protein 6.5 gm/dL (5.7-8.2); Troponin I 0.035 ng/mL (0.0-0.045); eGFR 54 See Note
[2025-02-07 10:28] LABS: Amphetamine/Methamp Scrn,U Negative (Negative); Barbiturate Screen,Urine Negative (Negative); Benzodiazepines Screen,Urine Negative (Negative); Benzoylecgonine Screen, Ur Negative (Negative); Fentanyl Screen,Urine Negative (Negative); Opiate Screen,Urine Negative (Negative); THC Screen,Urine Negative (Negative)
[2025-02-07] MEDS: Magnesium Sulfate 2 GM Ivpb 2 GM/50 ML BAG IV (10:39)
[2025-02-07] MEDS: cefTRIAXone/D5w 1gm IV premix 1 GM/50 ML BAG IV (10:46)
[2025-02-07] MEDS: SODIUM CHLORIDE 0.9% 500 ML 500 ML IV (10:50)
[2025-02-07] MEDS: DOXYCYCLINE INJ 100 MG in SODIUM CHLORIDE 0.9% (POP) 100 ML IV ×2 (10:50→22:55)
[2025-02-07 12:46] LABS: Lactate (Lactic Acid) 1.4 mMol/L (0.4-2.0)
[2025-02-07 12:59] LABS: COVID-19 Antigen (In-House) Negative (Negative)
[2025-02-07 13:10] LABS: Base Excess 3 (-3-3); HCO3 29 mEq/L (20-26); Inspired O2, VO2 Liters 4 L/min; O2 Saturation 98 % (91-98); PCO2 50 mmHg (32.0-48.0); PO2 94 mmHg (83-108); pH, Arterial 7.37 (7.35-7.45)
[2025-02-07 13:11] LABS: Allen Test Performed/OK; Puncture Site Right Radial
[2025-02-07 13:15] LABS: Procalcitonin 0.22 ng/ml (0.0-0.49)
[2025-02-07 13:47] LABS: D-Dimer 518 ng/mL (<600)
--- NOTE | 2025-02-07 15:06 | XR_ITS ---
Examination: Abdomen 2 views TECHNIQUE: AP supine AP upright abdomen 2 views Date and time: February 07, 2025, 1745 hours INDICATIONS: Abdominal distention today. FINDINGS: Mild to moderate air and stool throughout the colon Minimal air distended small bowel loops in the left abdomen Prominent osteopenia. Advanced left hip osteoarthritis IMPRESSION: Minimal small bowel ileus
--- NOTE | 2025-02-07 15:06 | XR_ITS ---
Examination: CT brain head without contrast. 2-D sagittal coronal reconstructions Date and time of exam:February 07, 2025 1550 hours Comparison January 24, 2025 INDICATIONS: Altered mental status today CTDI: vol (mGy):52.4 DLP: (mGycm):1087 Technique: Multiple CT axial sections of the brain have been obtained, 5 mm slice thickness. Contrast has not been administered. 2-D sagittal, coronal reconstructions have been obtained Low dose protocols were performed. One or more of the following dose reduction techniques were used; automated exposure control, adjustment of the mA and/or KV according to patient size, use of iterative reconstruction technique. Findings: No significant ventricular enlargement. Unchanged encephalomalacia right occipital lobe Intra-axial or extra-axial hemorrhage density is not seen. No mass effect or midline shift Basal cisterns are not remarkable. Fourth ventricle is midline. Cranial vault intact. Impression: Negative for acute hemorrhage, mass effect or midline shift
[2025-02-07] MEDS: MethylPREDNISolone SOD SUCC 62.5 MG/ML 2ML VIAL 125 MG IVP (15:15)
--- NOTE | 2025-02-07 15:20 | PC.NURSE ---
Pt resting, denies any pain or discomfort at this time, blanket provided to at bedside. vss on tele. Call cervantes in reach, will cont w/poc
--- NOTE | 2025-02-07 15:44 | XR_ITS ---
Examination: CT abdomen with intravenous contrast CT pelvis with intravenous contrast 2-D coronal reconstructions 2-D sagittal reconstructions Date and time of exam:February 07, 2025 1603 hours INDICATIONS: Onset abdominal distention today. CTDI: vol (mGy) 10.6 DLP: (mGycm) 725 Technique: Multiple axial sections of the abdomen and pelvis have been obtained. 64 slice high-resolution scanner used. 3 mm axial sections have been obtained, post intravenous injection 60 cc Isovue 370 2-D sagittal, coronal reconstructions obtained. Low dose protocols were performed. One or more of the following dose reduction techniques were used; automated exposure control, adjustment of the mA and/or KV according to patient size, use of iterative reconstruction technique. Findings: No liver or splenic lesion No gallstones No pancreatic mass No hydronephrosis Perinephric stranding Heavy abdominal aortic calcification No bowel obstruction No pericecal inflammatory change Colonic diverticulosis, no definite diverticulitis Transverse prostate dimension 3.8 cm Intact urinary bladder Negative for ascites Prominent osteopenia IMPRESSION: Minimal perinephric stranding No CT findings of appendicitis bowel obstruction or diverticulitis
--- NOTE | 2025-02-07 16:31 | PD.RESEVENT ---
Documentation for date of: 02/07/25 Event Note Event Note: Th follow e internal medicine team went to evaluate Dakota, 84 y/o male who came in for an evaluation of possible sepsis related to pneumonia. With initial vitals of temperature 100.5, tachycardic at 110, and requiring oxygen was put on 6 L, and labs had showed lactate 1.4, white count 5.4, Pro-Hernan unremarkable, creatinine 1.3, pH ABG 7.37, pCO2 50, bicarb 29, we went to evaluate the patient. With physical exam, patient did seem lethargic, however [place] Coma Scale of 14. Patient was able to answer some questions, however patient moved his lower extremities constantly when being examined. Patient's family member denies a history of seizures. Upon abdominal exam, patient continued to have rebound tenderness and pain with light and deep palpation. Patient abdomen did seem slightly distended and hypoactive bowel sounds were present. It was also noted that patient does have constipation at times as unknown when patient has had his last bowel movement. Chest x-ray findings and no white count or lactate, we believe that the patient does not have pneumonia. We believe patient needs further workup including possible abdominal imaging and head CT to further evaluate patient for possible SBO and altered mental status. Will pass this patient on to the next team on-call. Patient seen and care discussed with my senior resident, Dr. Harrington, and my attending physician, Dr. Liset Cárdenas, PGY-1
--- NOTE | 2025-02-07 18:42 | ESHP_ITS ---
<Statement entered by Helga Liu MD - 02/13/25 15:44> I reviewed above note and agree with findings and plans. I have also personally examined the patient with medicine team and went over assessment and plan with medical team including finance intern and resident physician. Documentation for date of: 02/07/25 HPI History of Present Illness Chief complaint: AMS History of present illness: Mr. Worthington is a 84-year-old male with past medical history significant for chronic A-fib on Eliquis, CAD status post CABG, CHF, [id number]-[id number] type 2 diabetes, BPH, melanoma, hearing loss, dementia, history of stroke in 2021, right retinal tear surgery came to the ED with altered mental status and shortness of breath. Patient seen and examined at bedside. Patient was able to state his name, however was unable to tell me his date of , the year or location. Patient was very lethargic, and difficult to arouse. Patient seen on 4 L nasal cannula. Patient's is at bedside, and noted that patient last well-known time was 2 days ago. Patient was improving with physical therapy. However suddenly, patient declined, became confused and was very lethargic. Associated symptoms include having a sore throat per however patient denied having any pain or blurry vision/headaches per . ED course: Patient presented with a low-grade fever of 100.5 and tachycardia, and sepsis alert was called. Labs significant for normocytic anemia, respiratory acidosis, low calcium, negative UA. U tox negative. COVID-19 and bedside influenza A/B negative. Patient was given a 500 mL bolus of fluids, and started on ceftriaxone and doxycycline. Patient given methylprednisolone 125 mg IV x 1. Patient will be admitted for further management of acute hypoxic respiratory failure secondary to community-acquired pneumonia. Review of Systems Review of Systems ROS Unobtainable: unobtainable due to mental status Past Medical History Past Medical History Comments PMH COMMENT: Past medical history as mentioned above Past surgical history: CABG, right retinal tear surgery 20 years ago Social history: Quit smoking about 7 to 8 years ago, and used to smoke 1 pack daily. Drinks alcohol socially. Lives with his . Denies any other illicit drug use. Allergies: NKDA Home medications: Aspirin 81 mg once daily, metformin 500 mg twice daily, Bumex 1 mg 3 times daily, Eliquis 5 mg twice daily, finasteride 5 mg once daily, gabapentin 100 mg 2 tablets in the morning, 2 tablet in the afternoon and 3 tablets at night, Spiriva 2-5 puffs every day, simvastatin 40 mg at bedtime, Pulmicort, diltiazem extended release 120 mg once daily, donepezil 10 mg once daily, Linzess 70 mg daily, and recently discharged with new medications including colchicine daily and tamsulosin. Family history: Nonsignificant Exam Vital Signs Temp Pulse Resp BP Pulse Ox O2 Del Method O2 Flow Rate 98.1 F 92 16 112/54 L 95 Nasal Cannula 4 02/07/25 18:17 02/07/25 18:17 02/07/25 18:17 02/07/25 18:17 02/07/25 18:17 02/07/25 18:17 02/07/25 18:17 Narrative Exam General Appearance: Pt in no apparent distress, arousable to sternal rub and voice, lethargic on nasal cannula HEENT: NC/AT, no scleral icterus, no conjunctival pallor, MMM Lungs: Scattered rhonchi and expiratory wheezing heard throughout lungs mild crackles heard in left lower base CVS: Irregularly, irregular, S1-S2 heard, no murmurs appreciated. 1+ pedal pitting edema ABD: Soft, mildly distended, BS + in all 4 quadrants EXT: no deformity/edema/lesions/cyanosis/clubbing, radial pulses 2+ BL, DP pulses 2 + BL SKIN: Skin exam normal without any rashes. Neuro: A&O x 1 to name. No gross neurological deficits. Unable to assess motor and sensory exam due to mentation Results: Labs 02/07/25 09:30 02/07/25 09:30 Labs: Short CBC 02/07/25 Range/Units 09:30 WBC 5.4 (3.8-10.6) Thou/mm3 Hgb 10.1 L (13.5-16.0) g/dL Hct 30.5 L (41.0-53.0) % Plt Count 332 D (140-440) Thou/mm3 BMP 02/07/25 09:30 Sodium 140 Potassium 3.5 Chloride 99 Carbon Dioxide 29.0 BUN 30 H Creatinine 1.3 Glucose 151 H Calcium 8.3 Cardiac Enzymes 02/07/25 Range/Units 09:30 Troponin I 0.035 (0.0-0.045) ng/mL Liver Function 02/07/25 Range/Units 09:30 Total Bilirubin 0.3 (0.3-1.2) mg/dL AST 22 (0-34) U/L ALT 19 (10-49) U/L Alkaline Phosphatase 64 (46-116) U/L Albumin 4.1 (3.4-4.8) gm/dL Urine 02/07/25 Range/Units 09:47 Urine Color Lt-Yellow (Lt Yel-Yel) Urine Clarity Clear (Clear/Hazy) Urine pH 6.0 (5.0-7.0) Ur Specific [place] 1.013 (1.001-1.035) Urine Protein Negative (Neg - Trace) Urine Glucose (UA) Negative (Negative) ABG Interpretation ABG results: 02/07/25 13:04 ABG pH 7.37 ABG pCO2 50 H ABG pO2 94 ABG HCO3 29 H ABG O2 Saturation 98 ABG Base Excess 3 Quality Measures Quality Measures none Advance care planning discussed with:: spouse Medications Home Medications and Allergies Home Medications ?Medication ?Instructions ?Recorded ?Confirmed ?Type finasteride 5 mg tablet (Proscar) 5 mg PO QDAY #0 tabs 05/13/15 01/22/25 History simvastatin 40 mg tablet (Zocor) 40 mg PO HS #0 tabs 0 05/13/15 01/22/25 History tiotropium bromide 2.5 2 puff inhalation QDAY #0 pu ffs 07/26/16 01/22/25 History mcg/actuation mist for inhalation (Spiriva Respimat) budesonide 1 mg/2 mL suspension 2 ml inhalation BID IA N sob 09/30/18 01/22/25 History for nebulization (Pulmicort) apixaban 5 mg tablet (Eliquis) 5 mg PO BID 12/02/21 History spironolactone 50 mg tablet 50 mg PO QDAY 12/02/21 History albuterol sulfate 90 mcg/actuation 1 - 2 puff inhalati on Q4H PRN sob 06/24/22 01/22/25 History aerosol inhaler (ProAir HFA) bumetanide 2 mg tablet 2 mg PO DAILY 06/24/2201/22 History bumetanide 1 mg tablet 1 mg PO .PM 01/22/25 5 History Held on 01/24/25. Instructions: Resume on 01/31/25. Hold until seen by primary care physician diltiazem HCl 120 mg 120 mg PO DAILY 01/22/25 History capsule,extended release 24 hr donepezil 10 mg tablet 5 mg PO DAILY 01/22/2501/22 History gabapentin 100 mg capsule 200 mg PO Q12H 01/22/2501/10 History gabapentin 100 mg capsule 300 mg PO .AT NOON 01/22/25 01/22/25 History linaclotide 72 mcg capsule 72 mcg PO QAM 01/22/2501/10 History (Linzesvolodymyr) metformin 500 mg tablet 500 mg PO BID 01/22/2501/22 History semaglutide 1 mg/dose (4 mg/3 mL) 1 mg subcut .QWEEKLY 01/22/25 01/22/25 History subcutaneous pen injector (Ozempic) Allergies Allergy/AdvReac Type Severity Reaction Status Date / Time No Known Allergies Allergy Verified 02/07/25 09:22 Visit Medications Acetaminophen (Acetaminophen 325 Mg Tablet) 650 mg PO Q6H PRN PRN Reason: Fever >100.4 or Pain 1-3 Stop: 03/09/25 18:14 Dextrose (Dextrose 50%-Water Inj 50 Ml Syringe) 25 ml IV Q15MIN PRN PRN Reason: BG 50-70 responsive npo pt Stop: 03/09/25 18:17 Dextrose (Dextrose 50%-Water Inj 50 Ml Syringe) 50 ml IV Q15MIN PRN PRN Reason: BG <50 OR BG <70 & pt unresponsive Stop: 03/09/25 18:17 Glucagon (Glucagon Inj 1 Mg Vial) 1 mg IM Q15MIN PRN PRN Reason: BG <70, and no IV access Insulin Human Lispro (Insulin Lispro (Admelog) 1 Unit/0.01 Ml Unit) 0 unit SC AC WALDEMAR; Protocol Stop: 03/10/25 07:29 Lactulose (Lactulose Syrup 20 Gm/30 Ml Udc) 20 gm PO TID WALDEMAR; Protocol Stop: 03/09/25 21:59 Methylprednisolone Sodium Succinate (Methylprednisolone Sod Succ 40 Mg Vial) 40 mg IVP BID WALDEMAR Stop: 02/15/25 08:59 Sennosides (Senna Tablet) 1 tab PO QDAY [facility]; Protocol Stop: 03/09/25 18:29 Discontinued Medications Albuterol/Ipratropium (Albuterol/Ipratropium (Duoneb) Rt Joselyn 3 Ml Nebu) 3 ml INH X1 ONE Stop: 02/07/25 09:48 Last Admin: 02/07/25 10:18 Dose: 3 ml Albuterol/Ipratropium (Albuterol/Ipratropium (Duoneb) Rt Joselyn 3 Ml Nebu) 3 ml INH X1 ONE Stop: 02/07/25 17:37 Ceftriaxone Sodium/Dextrose (Rocephin/D5w 1gm Iv Premix) 1 gm in 50 mls @ 100 mls/hr IV X1 ONE Stop: 02/07/25 10:17 Last Infusion: 02/07/25 11:16 Dose: Infused Doxycycline Hyclate 100 mg/ (Sodium Chloride) 100 mls @ 100 mls/hr IV X1 ONE Stop: 02/07/25 10:46 Last Infusion: 02/07/25 11:50 Dose: Infused Sodium Chloride (Ns) 500 mls @ 500 mls/hr IV .Q1H ONE Stop: 02/07/25 10:48 Last Infusion: 02/07/25 11:50 Dose: Infused Magnesium Sulfate (Magnesium Sulfate Ivpb) 2 gm in 50 mls @ 25 mls/hr IV X1 ONE Stop: 02/07/25 11:54 Last Infusion: 02/07/25 13:47 Dose: Infused Methylprednisolone Sodium Succinate (Methylprednisolone Sod Succ 62.5 Mg/Ml 2ml Vial) 125 mg IVP X1 ONE Stop: 02/07/25 14:07 Last Admin: 02/07/25 15:15 Dose: 125 mg Assessment & Plan Plan 84-year-old male with past medical history significant for chronic A-fib on Eliquis, CAD status post CABG, CHF, [id number] type 2 diabetes, BPH, melanoma, hearing loss, dementia, history of stroke in 2021, right retinal tear surgery, and gout admitted for acute hypoxic respiratory failure secondary to community-acquired pneumonia and acute encephalopathy. #Acute hypoxic respiratory failure secondary to #Community acquired pneumonia Per patient's , patient states that patient is completely lethargic and not himself the last 2 days. Patient also was complaining of a sore throat. Chest x-ray showed early left base pneumonia, physical exam prominent for diffuse rhonchi and crackles in left lower base. CT head negative at this time - Follow-up cultures - Continue with IV ceftriaxone and doxycycline -Wean O2 as tolerated to keep O2 saturation above 92% #Acute encephalopathy Differential diagnosis: Most likely metabolic versus toxic etiology Patient presented with a fever and tachycardia. Patient also has a possible source in his lung Patient also presented with a mild small bowel ileus seen on CT imaging - Will treat above infection with IV antibiotics - Continue to monitor neurochecks every 4 - Patient physical therapy referral - Continue to monitor signs and symptoms on telemetry - Will start patient on lactulose 20 mg 3 times daily - Will order Zofran for any nausea, consider NG tube placement #HFpEF (55% 01/2025) #CAD s/p CABG #History of CVA in 2021 BNP mildly elevated at 211. Patient chronically takes Bumex, ASA Echocardiogram showed normal ejection fraction of 55%, normal LV size and function and RV normal with mildly elevated LA, mitral and tricuspid regurg. Plan: -Will resume ASA -Will resume patient's dose equivalent home simvastatin -Fluid restriction 1500ml -Strict I's/O's -daily weights #Chronic atrial fibrillation Kristian Vascor is 7. Patient is chronically on Eliquis 5 mg twice daily EKG on admission showed A-fib with slow ventricular rate Plan: - Continue Eliquis dose to 5 mg twice daily - Will resume Diltiazem 120 ER #Type 2 diabetes not on chronic insulin therapy #Diabetic neuropathy Last A1c was 6.2% - Hypoglycemic protocol in place - ISS - Will resume patient's home gabapentin in a.m. #BPH -Continue patient's home tamsulosin and finasteride #Dementia-stable - Continue home Donepezil Health maintenance Disposition: Patient admitted for further management of acute encephalopathy and acute hypoxic respiratory failure. Diet: Cardiac GI prophylaxis: protonix DVT prophylaxis: Eliquis Code: DNR/DNI Patient's plan and care discussed with my attending, Dr.Obad Laurie Kapadia MD PGY-2
[2025-02-07] MEDS: SENNA TABLET 1 TAB PO (20:59)
[2025-02-07] MEDS: LACTULOSE SYRUP 20 GM/30 ML UDC PO (21:01)
[2025-02-08] VITALS (14 sets, daily range): BP systolic 91–129; BP diastolic 56–78; PULSE 67–100; RESP 17–94; TEMP 36.2–36.6; O2SAT 90–99
[2025-02-08 05:14] LABS: Basophils % (Auto) 0 % (0-2.5); Eosinophils % (Auto) 0 % (0-10); Hematocrit 28.6 % (41.0-53.0); Hemoglobin 9.1 g/dL (13.5-16.0); Immature Granulocytes % (Auto) 1 % (0-0); Immature Granulocytes Auto 0.02 Thou/mm3 (0.00-0.00); Lymphocytes # (Auto) 0.7 Thou/mm3 (1.0-4.8); Lymphocytes % (Auto) 17 % (10-50); Mean Corpuscular HGB Conc 31.8 g/dl (31.0-37.0); Mean Corpuscular Hemoglobin 29.1 pg (25.0-35.0); Mean Corpuscular Volume 91 fL (80-100); Monocytes # (Auto) 0.2 Thou/mm3 (0.0-0.8); Monocytes % (Auto) 4 % (0-12); Neutrophils # (Auto) 3.5 Thou/mm3 (1.8-7.7); Neutrophils % (Auto) 79 % (37-80); Nucleated Red Blood Cell % 0 /100 WBC (0); Platelet Count 316 Thou/mm3 (140-440); RDW Standard Deviation 46.9 fL (35.1-43.9); Red Blood Count 3.13 Miln/mm3 (4.50-5.90); White Blood Count 4.4 Thou/mm3 (3.8-10.6)
[2025-02-08] MEDS: LACTULOSE SYRUP 20 GM/30 ML UDC PO ×3 (05:25→21:35)
[2025-02-08 05:37] LABS: Alanine Aminotransferase 17 U/L (10-49); Albumin, Serum 3.9 gm/dL (3.4-4.8); Albumin/Globulin Ratio 2.1 (1.2-2.2); Alkaline Phosphatase 58 U/L (46-116); Anion Gap 12 (7-16); Aspartate Amino Transferase 20 U/L (0-34); BUN/Creatinine Ratio 23 Ratio (12-20); Bilirubin,Total 0.2 mg/dL (0.3-1.2); Blood Urea Nitrogen 27 mg/dL (9-23); Calcium 8.2 mg/dL (8.3-10.6); Calcium (Corrected) 8.3 mg/dL (8.5-10.1); Carbon Dioxide 25.9 mMol/L (20.0-31.0); Chloride 101 mMol/L (98-107); Creatinine (Component) 1.2 mg/dL (0.6-1.3); Estimated Creatinine Clearance 46.3 mL/min (>60); Globulin 1.9 gm/dL (2.3-3.5); Glucose 273 mg/dL (74-106); Osmolality,Calculated 292 (275-295); Potassium 4.1 mMol/L (3.4-5.1); Sodium 139 mMol/L (136-145); Total Protein 5.8 gm/dL (5.7-8.2); eGFR 59 See Note
[2025-02-08] MEDS: FINASTERIDE 5 MG TABLET PO (08:16)
[2025-02-08] MEDS: cefTRIAXone/D5w 1gm IV premix 1 GM/50 ML BAG IV (08:16)
[2025-02-08] MEDS: DOXYCYCLINE INJ 100 MG in SODIUM CHLORIDE 0.9% (POP) 100 ML IV ×2 (08:16→21:35)
[2025-02-08] MEDS: DILTIAZEM CD 120 MG CAPCR PO (08:16)
[2025-02-08] MEDS: ASPIRIN EC 81 MG TABEC PO (08:17)
[2025-02-08] MEDS: SENNA TABLET 1 TAB PO (08:17)
[2025-02-08] MEDS: INSULIN LISPRO (AdmeLOG) 1 UNIT/0.01 ML UNIT SC ×2 (08:17→17:25)
[2025-02-08] MEDS: TAMSULOSIN HCL 0.4 MG CAPSULE PO (08:17)
[2025-02-08] MEDS: BUMETANIDE 0.5 MG TABLET 1 MG PO ×2 (08:25→17:25)
[2025-02-08] MEDS: ALBUTEROL/IPRATROPIUM (Duoneb) RT SOL 3 ML NEBU INH ×3 (09:05→18:28)
--- NOTE | 2025-02-08 11:42 | ESPR_ITS ---
<Statement entered by Helga Liu MD - 02/13/25 15:45> I reviewed above note and agree with findings and plans. I have also personally examined the patient with medicine team and went over assessment and plan with medical team including wireless internet installer and resident physician. Documentation for date of: 02/08/25 Subjective Subjective Interval history: Overnight, no acute events reported. Patient's hemoglobin is stable at 9.1. Patient also has decreased creatinine of 1.2. Patient continues to be on 4 L nasal cannula. Patient seen and examined at bedside. Patient is alert and oriented x [address] Patient appears to have severe congestion, and has coarse breath sounds in upper airways, and would benefit from chest PT, Mucomyst and guaifenesin. Will have PT work with patient. Anticipate discharge within 24 to 48 hours. Patient blood cultures negative last 24 hours and urine cultures are pending. Pending cocci. Exam Vital Signs Temp Pulse Resp BP Pulse Ox O2 Del Method O2 Flow Rate 97.1 F 89 20 125/78 98 Nasal Cannula 4 02/08/25 08:00 02/08/25 09:06 02/08/25 09:06 02/08/25 08:25 02/08/25 09:06 02/08/25 08:00 02/08/25 08:00 Narrative Exam General Appearance: Pt in no apparent distress, alert and oriented today. Well- nourished and well-developed. HEENT: NC/AT, no scleral icterus, no conjunctival pallor, MMM Lungs: Scattered rhonchi and expiratory wheezing heard throughout lungs mild crackles heard in left lower base CVS: Irregularly, irregular, S1-S2 heard, no murmurs appreciated. 1+ pedal pitting edema ABD: Soft, mildly distended, obese, BS + in all 4 quadrants EXT: no deformity/edema/lesions/cyanosis/clubbing, radial pulses 2+ BL, DP pulses 2 + BL SKIN: Skin exam normal without any rashes. Neuro: A&O x [address]. No gross neurological deficits. Motor and sensory grossly normal bilaterally. Objective Labs 02/08/25 04:47 02/08/25 04:47 Labs: Laboratory Results - last 24 hr 02/07/25 02/07/25 02/07/25 09:30 12:25 12:40 WBC RBC Hgb Hct MCV MCH MCHC RDW Std Deviation Plt Count Neut % (Auto) Lymph % (Auto) [place] % (Auto) Eos % (Auto) Baso % (Auto) Neut # (Auto) Lymph # (Auto) [place] # (Auto) Eos # (Auto) Baso # (Auto) Immature Gran # (Auto) Absolute Nucleated RBC Immature Gran % Nucleated RBC % D-Dimer 518 Puncture Site ABG pH ABG pCO2 ABG pO2 ABG HCO3 ABG O2 Saturation ABG Base Excess Oxygen Liter Flow Sodium Potassium Chloride Carbon Dioxide Anion Gap BUN Creatinine Estim Creat Clear Calc eGFR BUN/Creatinine Ratio Glucose Calculated Osmolality Lactic Acid 1.4 Calcium Corrected Calcium Total Bilirubin AST ALT Alkaline Phosphatase Total Protein Albumin Globulin Albumin/Globulin Ratio Procalcitonin 0.22 SARS-CoV-2 Ag (Rapid) Negative 02/07/25 02/08/25 13:04 04:47 WBC 4.4 RBC 3.13 L Hgb 9.1 L Hct 28.6 L MCV 91 MCH 29.1 MCHC 31.8 RDW Std Deviation 46.9 H Plt Count 316 Neut % (Auto) 79 Lymph % (Auto) 17 [place] % (Auto) 4 Eos % (Auto) 0 Baso % (Auto) 0 Neut # (Auto) 3.5 Lymph # (Auto) 0.7 L [place] # (Auto) 0.2 Eos # (Auto) 0.0 Baso # (Auto) 0.0 Immature Gran # (Auto) 0.02 H Absolute Nucleated RBC 0.00 Immature Gran % 1 H Nucleated RBC % 0 D-Dimer Puncture Site Right Radial ABG pH 7.37 ABG pCO2 50 H ABG pO2 94 ABG HCO3 29 H ABG O2 Saturation 98 ABG Base Excess 3 Oxygen Liter Flow 4 Sodium 139 Potassium 4.1 D Chloride 101 Carbon Dioxide 25.9 Anion Gap 12 BUN 27 H Creatinine 1.2 Estim Creat Clear Calc 46.3 L eGFR 59 L BUN/Creatinine Ratio 23 H Glucose 273 H D Calculated Osmolality 292 Lactic Acid Calcium 8.2 L Corrected Calcium 8.3 L Total Bilirubin 0.2 L AST 20 ALT 17 Alkaline Phosphatase 58 Total Protein 5.8 Albumin 3.9 Globulin 1.9 L Albumin/Globulin Ratio 2.1 Procalcitonin SARS-CoV-2 Ag (Rapid) ABG Interpretation ABG results: 02/07/25 13:04 ABG pH 7.37 ABG pCO2 50 H ABG pO2 94 ABG HCO3 29 H ABG O2 Saturation 98 ABG Base Excess 3 Quality Measures Quality Measures none Advance care planning discussed with:: patient Assessment & Plan Assessment Current Active Medications: Generic Name Dose Route Start Last Admin Trade Name Freq PRN Reason Stop Dose Admin Acetaminophen 650 mg 02/07/25 18:15 Acetaminophen 325 Mg Tablet PO 03/09/25 18:14 Q6H PRN Fever >100.4 or Pain 1-3 Acetylcysteine 3 ml 02/08/25 13:00 Acetylcysteine Rt Joselyn 10% 4 Ml Nebu INH 03/10/25 12:59 Q6HRRT WALDEMAR Aspirin 81 mg 02/08/25 09:00 02/08/25 08:17 Aspirin Ec 81 Mg Tabec PO 03/10/25 08:59 81 mg QDAY WALDEMAR Administration Atorvastatin Calcium 40 mg 02/08/25 21:00 Atorvastatin Calcium 20 Mg Tablet PO 03/10/25 20:59 HS WALDEMAR Budesonide 1 mg 02/08/25 08:22 Budesonide Rt 0.5 Mg/2 Ml Nebu INH 03/10/25 18:59 BIDRT PRN wheezing Bumetanide 1 mg 02/08/25 08:30 02/08/25 08:25 Bumetanide 0.5 Mg Tablet PO 03/10/25 08:29 1 mg BIDD WALDEMAR Administration Dextrose 25 ml 02/07/25 18:18 Dextrose 50%-Water Inj 50 Ml Syringe IV 03/09/25 18:17 Q15MIN PRN BG 50-70 responsive npo pt Dextrose 50 ml 02/07/25 18:18 Dextrose 50%-Water Inj 50 Ml Syringe IV 03/09/25 18:17 Q15MIN PRN BG <50 OR BG <70 & pt unresponsive Diltiazem HCl 120 mg 02/08/25 09:00 02/08/25 08:16 Diltiazem Cd 120 Mg Capcr PO 03/10/25 08:59 120 mg QDAY WALDEMAR Administration Donepezil HCl 5 mg 02/08/25 21:00 Donepezil Hcl 5 Mg Tablet PO 03/10/25 20:59 HS WALDEMAR Finasteride 5 mg 02/08/25 09:00 02/08/25 08:16 Finasteride 5 Mg Tablet PO 03/10/25 08:59 5 mg QDAY WAL[facility]MAR Administration Glucagon 1 mg 02/07/25 18:18 Glucagon Inj 1 Mg Vial IM Q15MIN PRN BG <70, and no IV access Guaifenesin 100 mg 02/08/25 11:45 Guaifenesin Syrup 200 Mg/10 Ml Udc PO 03/10/25 11:44 BID WALDEMAR Protocol Ceftriaxone Sodium/Dextrose 1 gm in 50 mls @ 100 mls/hr 02/08/25 09:00 02/08/25 08:16 Rocephin/D5w 1gm Iv Premix IV 02/15/25 08:59 100 mls/hr QDAY WALDEMAR Administration Doxycycline Hyclate 100 mg/ 100 mls @ 100 mls/hr 02/07/25 22:30 02/08/25 08:16 Sodium Chloride IV 02/14/25 22:29 100 mls/hr BID WALDEMAR Administration Insulin Human Lispro 0 unit 02/08/25 07:30 02/08/25 11:31 Insulin Lispro (Admelog) 1 Unit/0.01 Ml Unit SC 03/10/25 07:29 Not Given AC WALDEMAR Protocol Lactulose 20 gm 02/07/25 22:00 02/08/25 05:25 Lactulose Syrup 20 Gm/30 Ml Udc PO 03/09/25 21:59 20 gm TID WALDEMAR Administration Protocol Methylprednisolone Sodium Succinate 40 mg 02/09/25 09:00 Methylprednisolone Sod Succ 40 Mg Vial IVP 02/16/25 08:59 QDAY WALDEMAR Ondansetron HCl 4 mg 02/07/25 23:02 Ondansetron Inj 2 Mg/Ml Inj 2 Ml IVP 03/09/25 23:01 Q6HR PRN NAUSEA OR VOMITING Protocol Sennosides 1 tab 02/07/25 18:30 02/08/25 08:17 Senna Tablet PO 03/09/25 18:29 1 tab QDAY WALDEMAR Administration Protocol Tamsulosin HCl 0.4 mg 02/08/25 09:00 02/08/25 08:17 Tamsulosin Hcl 0.4 Mg Capsule PO 03/10/25 08:59 0.4 mg QDAY WALDEMAR Administration Plan 84-year-old male with past medical history significant for chronic A-fib on Eliquis, CAD status post CABG, CHF, [id number] type 2 diabetes, BPH, melanoma, hearing loss, dementia, history of stroke in 2021, right retinal tear surgery, and gout admitted for acute hypoxic respiratory failure secondary to community-acquired pneumonia and acute encephalopathy. #Acute hypoxic respiratory failure secondary to #Community acquired pneumonia Per patient's , patient states that patient is completely lethargic and not himself the last 2 days. Patient also was complaining of a sore throat. Chest x-ray showed early left base pneumonia, physical exam prominent for diffuse rhonchi and crackles in left lower base. CT head negative at this time - Follow-up cultures - Continue with IV ceftriaxone and doxycycline - Wean O2 as tolerated to keep O2 saturation above 92% - Daily CPT, Mucomyst every 4, guaifenesin #Acute encephalopathy Differential diagnosis: Most likely metabolic versus toxic etiology Patient presented with a fever and tachycardia. Patient also has a possible source in his lung Patient also presented with a mild small bowel ileus seen on CT imaging - Will treat above infection with IV antibiotics - Continue to monitor neurochecks every 4 - Placed physical therapy referral - Continue to monitor signs and symptoms on telemetry - Will start patient on lactulose 20 mg 3 times daily - Will order Zofran for any nausea, consider NG tube placement #HFpEF (55% 01/2025) #CAD s/p CABG #History of CVA in 2021 BNP mildly elevated at 211. Patient chronically takes Bumex, ASA Echocardiogram showed normal ejection fraction of 55%, normal LV size and function and RV normal with mildly elevated LA, mitral and tricuspid regurg. Plan: -Will resume ASA -Will resume patient's dose equivalent home simvastatin -Fluid restriction 1500ml -Strict I's/O's -daily weights #Chronic atrial fibrillation Kristian Vascor is 7. Patient is chronically on Eliquis 5 mg twice daily EKG on admission showed A-fib with slow ventricular rate Plan: - Continue Eliquis dose to 5 mg twice daily - Will resume Diltiazem 120 ER #Type 2 diabetes not on chronic insulin therapy #Diabetic neuropathy Last A1c was 6.2% - Hypoglycemic protocol in place - ISS - Will resume patient's home gabapentin in a.m. #BPH -Continue patient's home tamsulosin and finasteride #Dementia-stable - Continue home Donepezil Health maintenance Disposition: Patient admitted for further management of acute encephalopathy and acute hypoxic respiratory failure. Anticipate discharge in 24 to 48 hours Diet: Cardiac GI prophylaxis: protonix DVT prophylaxis: Eliquis Code: DNR/DNI Patient's plan and care discussed with my attending, Dr.Obad Laurie Kapadia MD PGY-2
[2025-02-08 12:43] LABS: Cocci Serology, IgM Negative (Negative)
[2025-02-08] MEDS: ACETYLCYSTEINE RT SOL 10% 4 ML NEBU 3 ML INH ×2 (12:52→18:28)
--- NOTE | 2025-02-08 14:56 | PC.SS ---
Dakota Worthington is a 84 year old male admitted to [place] for AHRF. SS spoke to Ayana from [facility] who reports pt is a short term resident and currently they are unable to hold his bed but willing to accept him back. Ayana reports pts is alternate decision maker Any Worthington [phone]. Pt was receiving PT at . Pt is alert at most times and requires minimal assistance with ADLs. Updates have been sent to via [employer]. SS to follow up with when pt is closer to DC for bed availability. DC plan: (if bed available) DM: , Any
--- NOTE | 2025-02-08 14:57 | PC.SS ---
SS received a call from pt Any Worthington [phone] in regards to DC plan. Pt is medicare and only has about 1 week left of Medicare days. Any inquired what are steps for when pt is done with Medicare days, SS explained HH would be an option to transition the pt back home. SS informed Any that if [facility] does not have a bed at the time of DC we can resubmit to other facilities but it would still be only for 1 more week. Any expressed understanding.
--- NOTE | 2025-02-08 15:15 | PC.SS ---
Rounding: trend down O2 requirement on IV ABX, possible DC 24-48hrs back to [facility] if bed still available. If not, will need to be resent to other facilities.
[2025-02-08] MEDS: ATORVASTATIN CALCIUM 20 MG TABLET 40 MG PO (21:34)
[2025-02-08] MEDS: DONEPEZIL HCL 5 MG TABLET PO (21:34)
[2025-02-08] MEDS: guaiFENesin SYRUP 200 MG/10 ML UDC 100 MG PO (21:34)
[2025-02-08] MEDS: APIXABAN 2.5 MG TABLET 5 MG PO (21:34)
[2025-02-09] VITALS (9 sets, daily range): BP systolic 108–150; BP diastolic 53–94; PULSE 85–124; RESP 17–22; TEMP 36.3–36.6; O2SAT 92–97
[2025-02-09] MEDS: ALBUTEROL/IPRATROPIUM (Duoneb) RT SOL 3 ML NEBU INH ×3 (02:29→13:36)
[2025-02-09] MEDS: ACETYLCYSTEINE RT SOL 10% 4 ML NEBU 3 ML INH ×3 (02:29→13:36)
[2025-02-09 05:32] LABS: Basophils % (Auto) 0 % (0-2.5); Eosinophils % (Auto) 0 % (0-10); Hematocrit 29.3 % (41.0-53.0); Hemoglobin 9.3 g/dL (13.5-16.0); Immature Granulocytes % (Auto) 0 % (0-0); Immature Granulocytes Auto 0.05 Thou/mm3 (0.00-0.00); Lymphocytes # (Auto) 1.7 Thou/mm3 (1.0-4.8); Lymphocytes % (Auto) 13 % (10-50); Mean Corpuscular HGB Conc 31.7 g/dl (31.0-37.0); Mean Corpuscular Hemoglobin 28.9 pg (25.0-35.0); Mean Corpuscular Volume 91 fL (80-100); Monocytes % (Auto) 8 % (0-12); Neutrophils # (Auto) 9.8 Thou/mm3 (1.8-7.7); Neutrophils % (Auto) 78 % (37-80); Nucleated Red Blood Cell % 0 /100 WBC (0); Platelet Count 387 Thou/mm3 (140-440); RDW Standard Deviation 47.2 fL (35.1-43.9); Red Blood Count 3.22 Miln/mm3 (4.50-5.90); White Blood Count 12.5 Thou/mm3 (3.8-10.6)
[2025-02-09] MEDS: BUMETANIDE 0.5 MG TABLET 1 MG PO (05:35)
[2025-02-09] MEDS: LACTULOSE SYRUP 20 GM/30 ML UDC PO (05:36)
[2025-02-09 06:05] LABS: Alanine Aminotransferase 16 U/L (10-49); Alkaline Phosphatase 56 U/L (46-116); Anion Gap 10 (7-16); Aspartate Amino Transferase 18 U/L (0-34); BUN/Creatinine Ratio 21 Ratio (12-20); Bilirubin,Total 0.3 mg/dL (0.3-1.2); Blood Urea Nitrogen 25 mg/dL (9-23); Calcium 8.7 mg/dL (8.3-10.6); Calcium (Corrected) 8.7 mg/dL (8.5-10.1); Carbon Dioxide 25.7 mMol/L (20.0-31.0); Chloride 106 mMol/L (98-107); Creatinine (Component) 1.2 mg/dL (0.6-1.3); Estimated Creatinine Clearance 46.3 mL/min (>60); Glucose 145 mg/dL (74-106); Osmolality,Calculated 290 (275-295); Potassium 3.9 mMol/L (3.4-5.1); Sodium 142 mMol/L (136-145); eGFR 59 See Note
[2025-02-09] MEDS: INSULIN LISPRO (AdmeLOG) 1 UNIT/0.01 ML UNIT SC ×2 (07:41→12:11)
[2025-02-09] MEDS: cefTRIAXone/D5w 1gm IV premix 1 GM/50 ML BAG IV (08:27)
[2025-02-09] MEDS: FINASTERIDE 5 MG TABLET PO (08:28)
[2025-02-09] MEDS: DILTIAZEM CD 120 MG CAPCR PO (08:28)
[2025-02-09] MEDS: guaiFENesin SYRUP 200 MG/10 ML UDC 100 MG PO (08:28)
[2025-02-09] MEDS: ASPIRIN EC 81 MG TABEC PO (08:28)
[2025-02-09] MEDS: APIXABAN 2.5 MG TABLET 5 MG PO (08:29)
[2025-02-09] MEDS: SENNA TABLET 1 TAB PO (08:29)
[2025-02-09] MEDS: TAMSULOSIN HCL 0.4 MG CAPSULE PO (08:29)
[2025-02-09] MEDS: DOXYCYCLINE INJ 100 MG in SODIUM CHLORIDE 0.9% (POP) 100 ML IV (09:47)
--- NOTE | 2025-02-09 11:51 | PC.SS ---
SS informed by Dr. Bishop Luis patient is ready for discharge. SS contacted [facility] [employer] to consult if patient is appropriate for wheelchair transportation, patient can travel by wheelchair. However, requires 3L of oxygen. SS contacted [facility] who stated transport is not available during the weekend. SS contacted patient's spouse Any to discuss transportation options and cost. Any stated she is unable to cover cost for transportation at this time due to financial challenges. DOC obtained, submitted transportation PCS form to [facility] via [employer]. Viky [facility] scheduled transportation for 1400. RN, GUERDA, Winifred KIRBY, and patient's spouse Any informed of ETA 1400.
--- NOTE | 2025-02-09 13:36 | PC.NURSE ---
called [facility] and spoke to MATTHEW colin to give report.
[2025-02-09 14:14] LABS: Cocci Serology, IgG Negative (Negative)
--- NOTE | 2025-02-09 16:09 | ESDS_ITS ---
<Statement entered by Helga Liu MD - 02/13/25 15:46> I reviewed above note and agree with findings and plans. I have also personally examined the patient with medicine team and went over assessment and plan with medical team including statistics intern and resident physician. Planned Discharge Date 02/09/25 DS: Providers Provider Date of admission: 02/07/25 18:15 Primary care physician: Emilio Barton MD Admitting Provider: Helga Liu MD Attending Provider on Admission: Helga Liu MD Consults: 02/07/25 22:56 Referral Physical Therapy Routine Comment: Physician Instructions: Referral Speech Therapy Routine Comment: Attending Provider on DC: Laurie Kapadia MD Discharging Provider: Laurie Kapadia MD DS: Diagnosis Problem List Completed Was Problem List Reviewed/Reconciled?: Yes Hospital Course Hospital Course Hospital course: Mr. Worthington is a 84-year-old male with past medical history significant for ch ronic A-fib on [facility], CAD status post CABG, CHF, [id number] type 2 diabetes, BPH, melanoma, hearing loss, dementia, history of stroke in 2021, right retinal tear surgery, and gout who presented with AMS and admitted for acute hypoxic respiratory failure secondary to community-acquired pneumonia and acute encephalopathy. Per patient's , patient states that patient is completely lethargic and not himself the last 2 days. Patient also was complaining of a sore throat. Chest x-ray showed early left base pneumonia, physical exam prominent for diffuse rhonchi and crackles in left lower base. CT head negative at this time. Cultures have been negative in the last 48 hours. Throughout hospital stay, patient's oxygen requirements improved, mentation improved while on daily Antibiotics, chest physiotherapy, Mucomyst, and Guaifenesin. Pt seen and examined at bedside. Pt denies any complaints and was able to walk with PT. Pt is medically cleared to be discharged today with the f faustino instructions: Start taking these new medications: Augmentin for 5 days twice daily, Guaifenesin 5ml twice daily for 5 more days, and Prednisone taper per instructions for a total of 11 days Continue other home medications as prescribed. Follow up with PCP within 1-2 weeks. Return to the ED if you develop new or worsening symptoms. Hospital discharge diagnoses treated during hospital stay: #Acute hypoxic respiratory failure secondary to #Community acquired pneumonia-resolving #Acute encephalopathy-improved #HFpEF (55% 01/2025) #CAD s/p CABG #History of CVA in 2021 #Chronic atrial fibrillation #Type 2 diabetes not on chronic insulin therapy #Diabetic neuropathy #BPH #Dementia-stable Patient's plan and care discussed with my attending, Dr. Noe Kapadia MD PGY-2 Status at Discharge Cognitive/behavioral status at discharge: stable Functional status at discharge: uses cane/walker Overall status at discharge: patient is progressing back to baseline Time Spent with Patient Time attestation: Total time spent providing and/or coordinating discharge services: 35 Time spent: Greater than 30 minutes Exam Vital Signs Temp Pulse Resp BP Pulse Ox O2 Del Method O2 Flow Rate 97.6 F 92 22 H 147/53 H 92 L Nasal Cannula 2 02/09/25 12:00 02/09/25 13:36 02/09/25 13:36 02/09/25 12:00 02/09/25 13:36 02/09/25 12:00 02/09/25 13:36 Narrative Exam General Appearance: Pt in no apparent distress, alert and oriented today. Well- nourished and well-developed. HEENT: NC/AT, no scleral icterus, no conjunctival pallor, MMM Lungs: CTAB. No wheezing, crackles appreciated. CVS: Irregularly, irregular, S1-S2 heard, no murmurs appreciated. 1+ pedal pitting edema ABD: Soft, mildly distended, obese, BS + in all 4 quadrants EXT: no deformity/edema/lesions/cyanosis/clubbing, radial pulses 2+ BL, DP pulses 2 + BL SKIN: Skin exam normal without any rashes. Neuro: A&O x [address]. No gross neurological deficits. Motor and sensory grossly normal bilaterally. Discharge Plan Plan Patient Disposition: Xfer Skilled [facility]sg Fac (SNF) Patient condition on transfer: Stable Care Plan Goals: Start taking these new medications: Augmentin for 5 days twice daily, Guaifenesin 5ml twice daily for 5 more days, and Prednisone taper per instructions for a total of 11 days Continue other home medications as prescribed. Follow up with PCP within 1-2 weeks. Return to the ED if you develop new or worsening symptoms. Prescriptions/Referrals Prescriptions/Med Rec: New guaifenesin 100 mg/5 mL Liquid 100 mg PO BID 5 Days Qty: 50 0RF prednisone 5 mg tablet See Taper PO QDAY 11 Days Qty: 19 0RF Taper: Prednisone Taper 20 mg DAILY for 2 Days and 0 Hour 10 mg DAILY for 2 Days and 0 Hour 5 mg DAILY for 7 Days and 0 Hour amoxicillin-pot clavulanate 875-125 mg tablet 1 tab PO BID 5 Days Qty: 10 0RF Continued simvastatin [Zocor] 40 MG tablet 10 mg PO HS Qty: 0 finasteride [Proscar] 5 MG tablet 5 mg PO QDAY Qty: 0 Spiriva Respimat 2.5 mcg/actuation Mist 2 puff INHALATION QDAY Qty: 0 budesonide [Pulmicort] 1 mg/2 mL Suspension For Nebulization 2 ml INHALATION BID PRN (Reason: sob) spironolactone 50 mg tablet 50 mg PO QDAY Eliquis 5 mg tablet 5 mg PO BID albuterol sulfate [ProAir HFA] 90 mcg/actuation HFA aerosol inhaler 1 - 2 puff INHALATION Q4H PRN (Reason: sob) aspirin 81 mg capsule 81 mg PO QDAY Qty: 30 0RF gabapentin 100 mg capsule 200 mg PO Q12H metformin 500 mg tablet 500 mg PO BID diltiazem HCl 120 mg capsule,extended release 24hr 120 mg PO DAILY Linzess 72 mcg capsule 72 mcg PO QAM bumetanide 1 mg tablet 1 mg PO TID Ozempic 1 mg/dose (4 mg/3 mL) pen injector 1 mg SUBCUT .QWEEKLY Rx Instructions: EVERY TUESDAY gabapentin 100 mg capsule 300 mg PO .AT NOON tamsulosin 0.4 mg Capsule 0.4 mg PO QDAY 30 Days Qty: 30 0RF colchicine 0.6 mg capsule 0.6 mg PO .QOD donepezil [Aricept] 5 mg tablet 5 mg PO QDAY Referrals: Emilio Barton MD [Primary Care Provider] - Patient/Caregiver Discharge Instructions Discharge Activity: as per physical therapy Other Discharge Diet Instructions: Cardiac Education Materials: Preventing Common Respiratory ... Print Language: Mosotho Stand Alone Forms: [facility] Award Info., Patient Portal Info Letter Discharge Order Discharge Orders: Discharge (Routine); Ordered 02/09/25 Ordered By: Laurie Kapadia Quality Discharge Quality Measures VTE prophylaxis
== END 2025-02-09 14:02 | disposition skilled nursing facility (03) | DRG 193 ==
LOC: SERX 15:30 → SERHOLD 18:40 → S3NX 20:08
PROVIDERS: Student in an Organized Health Care Education/Training Program; Admitting Provider Internal Medicine; Emergency Provider Emergency Medicine; PCP Family Medicine; Visit Provider Internal Medicine
DX: J18.9 Pneumonia, unspecified organism (principal); J96.21 Acute and chronic respiratory failure with hypoxia; I48.20 Chronic atrial fibrillation, unspecified; G93.40 Encephalopathy, unspecified; I50.32 Chronic diastolic (congestive) heart failure; E87.29 Other acidosis; J44.0 Chronic obstructive pulmonary disease with (acute) lower respiratory infection; J44.1 Chronic obstructive pulmonary disease with (acute) exacerbation; H91.90 Unspecified hearing loss, unspecified ear; I25.10 Atherosclerotic heart disease of native coronary artery without angina pectoris; F03.90 Unspecified dementia, unspecified severity, without behavioral disturbance, psychotic disturbance, mood disturbance, and anxiety; E11.40 Type 2 diabetes mellitus with diabetic neuropathy, unspecified; N40.0 Benign prostatic hyperplasia without lower urinary tract symptoms; D64.9 Anemia, unspecified; Z79.01 Long term (current) use of anticoagulants; Z66 Do not resuscitate; M10.9 Gout, unspecified; Z99.81 Dependence on supplemental oxygen; K59.00 Constipation, unspecified; Z95.1 Presence of aortocoronary bypass graft; Z79.84 Long term (current) use of oral hypoglycemic drugs; Z85.820 Personal history of malignant melanoma of skin; Z86.73 Personal history of transient ischemic attack (TIA), and cerebral infarction without residual deficits; Z79.899 Other long term (current) drug therapy
CPT/HCPCS: 36415; 36600; 70450; 71045; 74019; 74177; 80053; 80307; 81001; 82803; 83605; 83735; 83880; 84145; 84484; 85025; 85379; 85610; 85730; 86331; 86635; 87040; 87081; 87086; 87400; 87811; 92610; 93005; 93225; 94640; 94667; 96365; 96366; 96368; 96375; 97162; 99285; A4649; A9270; J0696; J1815; J2919; J3475; J3490; J7040; Q9967